=== PATIENT | female | born 1950 | race Caucasian/White ===

== ENCOUNTER → 2016-07-31 | Outpatient (CLI) | payer BC ==
[~2016-07-31] MED LIST: ATEN-173 PO; LEVO75TA PO; MULT-506 PO; PRAV20TA PO
[2016-07-31 15:04] LABS: CALCIUM URINE 14.9 mg/dl
[2016-07-31 15:09] LABS: CREATININE 0.61 mg/dl (0.60-1.20)
== END | disposition home or self-care (01) ==
LOC: C.LAB1850 13:25
PROVIDERS: ATTEND Internal Medicine Rheumatology
DX: M81.0 Age-related osteoporosis without current pathological fracture (principal); E55.9 Vitamin D deficiency, unspecified; E83.52 Hypercalcemia; E61.8 Deficiency of other specified nutrient elements

== ENCOUNTER → 2016-08-02 | Outpatient (CLI) | payer BC ==
[2016-08-02 17:57] LABS: POTASSIUM 3.8 mmol/L (3.5-5.1)
== END | disposition home or self-care (01) ==
LOC: C.LAB1850 16:48
PROVIDERS: ATTEND Internal Medicine Rheumatology
DX: I10 Essential (primary) hypertension (principal); E61.8 Deficiency of other specified nutrient elements; E83.52 Hypercalcemia

== ENCOUNTER → 2017-01-24 | Outpatient (CLI) | payer BC ==
[2017-01-24 17:34] LABS: ALT/SGPT 27 U/L (12-78); AST/SGOT 17 U/L (15-37); BLOOD UREA NITROGEN 12 mg/dl (7-18); BUN/CREATININE RATIO 21.9 (10-20); CALCIUM 8.9 mg/dl (8.5-10.1); CARBON DIOXIDE 27 mmol/L (21-32); CHLORIDE 102 mmol/L (98-107); CREATININE 0.54 mg/dl (0.60-1.20); GLUCOSE 88 mg/dl (70-99); POTASSIUM 3.7 mmol/L (3.5-5.1); SODIUM 137 mmol/L (136-145)
[2017-01-24 17:45] LABS: ALB/GLOB RATIO 1.1 (0.9-2); ALKALINE PHOSPHATASE 40 U/L (45-117); CHOLESTEROL 152 mg/dl (0-200); CHOLESTEROL/HDL RATIO 2.3; HDL CHOLESTEROL 66 mg/dl; LDL CHOLESTEROL CALCULATED 70 mg/dl; TRIGLYCERIDES 81 mg/dl (0-150); VERY LOW DENSITY LIPOPROT CALC 16 mg/dl
== END | disposition home or self-care (01) ==
LOC: C.LABBFT 12:00
PROVIDERS: ATTEND Physician Assistant Medical
DX: I10 Essential (primary) hypertension (principal); E03.9 Hypothyroidism, unspecified; E78.5 Hyperlipidemia, unspecified

== ENCOUNTER → 2017-01-25 | Outpatient (CLI) | payer BC ==
--- NOTE | 2017-01-28 15:12 | MAMMOGRAPHY REPORT ---
BILATERAL DIGITAL SCREENING MAMMOGRAM WITH CAD: 01/25/2017 CLINICAL HISTORY: Routine screening. Patient has no complaints. TECHNIQUE: Current study was also evaluated with a Computer Aided Detection (CAD) system. Bilateral CC and MLO views were obtained. COMPARISON: Comparison is made to exams dated: 01/24/2016 mammogram, 01/14/2015 mammogram, 01/13/2014 [facility] mogram, 01/08/2013 mammogram, 01/08/2012 mammogram, and 02/03/2016 mammogram - [facility]. BREAST COMPOSITION: The tissue of both breasts is extremely dense, which lowers the sensitivity of m ammography. FINDINGS: No suspicious masses, calcifications, or areas of architectural distortion are noted in ei ther breast. There has been no significant interval change compared to prior exams. IMPRESSION: ACR BI-RADS CATEGORY 1: NEGATIVE There is no mammographic evidence of malignancy. A 1 year screening mammogram is recommended. The pa tient will receive written notification of the results. Approximately 10% of breast cancers are not detected with mammography. A negative mammographic report should not delay biopsy if a clinically suggestive mass is present. Cele Delgado M.D. /:01/25/2017 16:33:28 Skidder Operator: Megan CARMONA(Arin)(M), [facility] letter sent: Normal 1/2 BI-RADS Code: ACR BI-RADS Category 1: Negative
== END | disposition home or self-care (01) ==
LOC: C.MAMM 16:03
PROVIDERS: ATTEND Physician Assistant Medical
DX: Z12.31 Encounter for screening mammogram for malignant neoplasm of breast (principal)

== ENCOUNTER → 2017-02-21 | Outpatient (CLI) | payer BC ==
[2017-02-21 18:10] LABS: CALCIUM URINE 13.9 mg/dl
== END | disposition home or self-care (01) ==
LOC: C.LAB1850 17:20
PROVIDERS: ATTEND Internal Medicine Rheumatology
DX: M81.0 Age-related osteoporosis without current pathological fracture (principal); E83.52 Hypercalcemia; E55.9 Vitamin D deficiency, unspecified

== ENCOUNTER → 2017-08-05 | Outpatient (CLI) | payer BC | END | disposition home or self-care (01) | LOC: C.LAB 19:03 | PROVIDERS: ATTEND Internal Medicine | DX: R31.0 Gross hematuria (principal); R35.0 Frequency of micturition ==

== ENCOUNTER 2017-09-03 17:41 | Inpatient (IN) | payer BC, OTHER ==
[~2017-09-03] VITALS: Ht 160 cm; Wt 36.6 kg
[2017-09-03] MEDS ORDERED: SODIUM CHLORIDE 0.9% 1000ML 1,000 ML IV STA (18:02)
[2017-09-03] MEDS ORDERED: CEFTRIAXONE SOD INJ 1 GM ADDVIAL IV STA (18:02)
--- NOTE | 2017-09-03 18:49 | DIAGNOSTIC IMAGING REPORT ---
SINGLE VIEW CHEST CLINICAL HISTORY: Generalized weakness. FINDINGS: An AP, portable, upright chest radiograph is compared to study dated 07/08/2015 and correlated with chest CT dated 12/17/2013. The examination is degraded by portable technique and patient rotation. The heart is top normal for projection and there is atherosclerotic calcification of the thoracic aorta. There is chronic elevation of right hemidiaphragm and mild bibasilar atelectasis. There is no airspace consolidation typical for pneumonia or large pleural effusion. Apical scarring is observed. No pneumothorax is seen. The skeletal structures are osteopenic. The bony thorax is grossly intact. IMPRESSION: No acute cardiopulmonary abnormality. Electronically signed by: Shlomo Garcia M.D. 09/03/2017 6:48 PM Dictated Date/Time: 09/03/2017 6:46 PM
--- NOTE | 2017-09-03 19:38 | EMERGENCY ROOM VISIT NOTE ---
History Report prepared by Filemon: Jose R Melvin Under the Supervision of: Dr. Bonifacio Eason D.O. First contact with patient: 17:52 Chief Complaint: ABNORMAL LABS Stated Complaint: ABNORMAL LABS History of Present Illness The patient is a 67 year old female who presents to the Emergency Room with complaints of abnormal laboratory studies occurring today. The patient was found to have a sodium of 120, and a white blood cell count of 21.6. She was also found to have a UTI. She had blood-work with her PCP's office due to "not feeling right". The patient was called with her results just prior to arrival and was referred to the ED. She currently complains of fatigue. She notes that she has fallen twice today as well. The patient is on Hydrochlorothiazide and feels that it may be responsible for some of her symptoms. She states that she currently feels dehydrated. She has a history of hyponatremia. The patient notes that she was on antibiotics last month for a bladder infection. She notes that she has had very little to eat over the past week due to lack of appetite. Source of History: patient Onset: Today Symptom Intensity: Sodium of 120. White blood count of 21.6. Quality: other (Abnormal laboratory studies) Timing: constant Associated Symptoms: + fatigue Review of Systems See HPI for pertinent positives & negatives. A total of 10 systems reviewed and were otherwise negative. Past Medical & Surgical Medical Problems: (1) Hyperlipidemia (2) Hypertension Family History Patient reports no known family medical history. Social History Smoking Status: Never Smoker Marital Status: single Housing Status: lives alone Occupation Status: employed Current/Historical Medications Scheduled Atenolol (Tenormin), 12.5 MG PO QAM Levothyroxine Sodium (Synthroid), 75 MCG PO DAILY Multivitamin (Multivitamin), 1 TAB PO DAILY Pravastatin (Pravachol ), 20 MG PO HS Allergies Coded Allergies: Sulfamethoxazole w/Trimethoprim (Verified Allergy, Unknown, RASH, 09/03/17) Physical Exam Vital Signs Date Time Temp Pulse Resp B/P (MAP) Pulse Ox O2 Delivery O2 Flow Rate FiO2 09/03/17 17:48 37.8 90 18 156/72 97 Room Air Physical Exam CONSTITUTIONAL/VITAL SIGNS: Reviewed / noted above. GENERAL: Non-toxic in appearance. INTEGUMENTARY: Warm, dry, and [place]. HEAD: Normocephalic. EYES: without scleral icterus or trauma. ENT/OROPHARYNX: clear and moist. LYMPHADENOPATHY/NECK: Is supple without lymphadenopathy or meningismus. RESPIRATORY: Lungs clear and equal. CARDIOVASCULAR: Regular rate and rhythm. GI/ABDOMEN: Soft and nontender. No organomegaly or pulsatile mass. No rebound or guarding. Normal bowel sounds. EXTREMITIES: Warm and well perfused. BACK: No CVA tenderness. NEUROLOGICAL: Intact without focal deficits. PSYCHIATRIC: normal affect. MUSCULOSKELETAL: Normally developed with good muscle tone. Medical Decision & Procedures ER Provider Diagnostic Interpretation: Radiology results as stated below per my review and radiologist interpretation: SINGLE VIEW CHEST FINDINGS: An AP, portable, upright chest radiograph is compared to study dated 07/08/2015 and correlated with chest CT dated 12/17/2013. The examination is degraded by portable technique and patient rotation. The heart is top normal for projection and there is atherosclerotic calcification of the thoracic aorta. There is chronic elevation of right hemidiaphragm and mild bibasilar atelectasis. There is no airspace consolidation typical for pneumonia or large pleural effusion. Apical scarring is observed. No pneumothorax is seen. The skeletal structures are osteopenic. The bony thorax is grossly intact. IMPRESSION: No acute cardiopulmonary abnormality. Electronically signed by: Shlomo Garcia M.D. 09/03/2017 6:48 PM Medications Administered Medications (Trade) Dose Ordered Sig/Simone Route Start Time Stop Time Status Last Admin Dose Admin Ceftriaxone Sodium (Rocephin Inj) 1 gm NOW STAT IV 09/03/17 18:02 09/03/17 18:03 DC 09/03/17 18:56 1 GM Sodium Chloride 1,000 ml @ 250 mls/hr Q4H STAT IV 09/03/17 18:02 09/03/17 22:01 09/03/17 18:56 250 MLS/HR ED Course 1755: Previous medical records were reviewed. The patient was evaluated in room B8. A complete history and physical examination was performed. 180: Ordered Sodium Chloride 1000 ml @ 250 mls/hr IV, Rocephin Inj 1 gm IV. 2: On reevaluation, the patient is resting comfortably. I discussed the results and findings with her. She verbalized agreement of the treatment plan. I spoke with Dr. Giang of the [facility] Hospitalist Service. The patient will be evaluated for further management and care. Medical Decision Differential diagnosis: Etiologies such as metabolic, infection, hypo/hyperglycemia, electrolyte abnormalities, cardiac sources, intracerebral event, toxicologic, neurologic, as well as others were entertained. This is a 67-year-old female who presents to the ED with a chief complaint of abnormal labs, unsteady gait and falling. The patient reports that she has had a decreased appetite over the past week or more. She states that she feels that her equilibrium is off. She had outpatient blood work done earlier today that revealed significant hyponatremia with a sodium of 120. Her white blood cell count was 21.6. Chloride was 80. TSH was normal. Urine was suggestive of urinary tract infection. Urine culture is pending. Chest x-ray today reveals no acute disease. The patient was given some IV fluids as she feels that she might be dehydrated. She was given normal saline IV at 250 cc/h. She was given IV Rocephin for her urinary tract infection. I spoke with the hospitalist, who will see the patient for further inpatient evaluation and care. Medication Reconcilliation Current Medication List: was personally reviewed by me Blood Pressure Screening Patient's blood pressure: Elevated blood pressure Blood pressure disposition: Referred to PCP Consults Time Called: 1914 Consulting Physician: Dr. Rahat Hood [facility] Hospitalist Returned Call: 1921 Discussed the patient's case. The patient will be evaluated for further treatment and disposition. Impression Primary Impression: Hyponatremia Additional Impressions: UTI (urinary tract infection) Unsteady gait Scribe Attestation The scribe's documentation has been prepared under my direction and personally reviewed by me in its entirety. I confirm that the note above accurately reflects all work, treatment, procedures, and medical decision making performed by me. Departure Information Dispostion Being Evaluated By Hospitalist Referrals Sita Kasper P.A. (PCP) Patient Instructions My [facility] Problem Qualifiers
--- NOTE | 2017-09-03 21:04 | History and Physical ---
History & Physical Date & Time of Service: Sep 03, 2017 at 21:04 Chief Complaint: Abnormal Labs Primary Care Physician: Sita Kasper P.A. History of Present Illness Source: patient, hospital records The patient is a 67-year-old female who presents to the emergency department with report of abnormal laboratory studies that were drawn at her PCPs office today due to her complaint of "not feeling right". She was found to have a UTI , and a sodium of 120. Her primary complaint in the ED at this time is fatigue , and she reports that she has fallen twice today as well. She feels that her HCTZ is responsible for her symptoms, and that she feels dehydrated. She has a history of hyponatremia and was admitted for such in 2014. She was on antibiotics for a bladder infection last month. She reports that her overall intake for foods and solids has been decreased over the past week. She does report having gross hematuria when she had an infection last month, but has not noticed that this time. Past Medical/Surgical History Medical Problems: (1) Hyperlipidemia Status: Chronic (2) Hypertension Status: Chronic Family History Patient reports no known family medical history. Social History Smoking Status: Never Smoker Smokeless Tobacco Use: No Alcohol Use: none Marital Status: single Occupational Status: employed Immunizations History of Influenza Vaccine: Unknown History of Tetanus Vaccine?: Unknown History of Pneumococcal: Unknown History of Hepatitis B Vaccine: Unknown Multi-Drug Resistant Organisms History of MDRO: No Allergies Coded Allergies: Sulfamethoxazole w/Trimethoprim (Verified Allergy, Unknown, RASH, 09/03/17) Home Medications Scheduled Atenolol (Tenormin), 12.5 MG PO QAM Levothyroxine Sodium (Synthroid), 75 MCG PO DAILY Multivitamin (Multivitamin), 1 TAB PO DAILY Pravastatin (Pravachol ), 20 MG PO HS Review of Systems The patient denies chest pain, palpitations, shortness of breath, dyspnea on exertion, cough, lower extremity swelling, sore throat, fevers, chills, sweats, weight change, nausea, vomiting, diarrhea , constipation, abdominal pain, pelvic pain, blood in urine or stool, dysuria, headache, memory loss, loss of consciousness , rash, abnormal bruising or bleeding, imbalance, focal weakness, numbness or tingling in arms or legs, generalized arthralgias or myalgias, back or neck pain, or night sweats. The review of systems is otherwise negative other than for that already noted above, and at least 10 systems have been reviewed. Physical Exam Vital Signs Date Time Temp Pulse Resp B/P (MAP) Pulse Ox O2 Delivery O2 Flow Rate FiO2 09/03/17 19:42 78 15 104/61 97 09/03/17 17:48 37.8 90 18 156/72 97 Room Air The patient is awake, alert and oriented 3, well developed and well nourished, normocephalic and atraumatic, sitting upright on the edge of her bed eating supper, and in no acute distress. HEENT--PERRL, EOMI, mucous membranes and oropharynx moist. Neck--supple. No JVD. No bruits. Thyroid normal, trachea midline, no adenopathy. Heart--normal S1 and S2. No murmurs, rubs or gallops. Lungs--clear bilaterally, no respiratory distress, no accessory muscle use. Abdomen--normal bowel sounds and soft. Nontender. Nondistended, no hernias or masses, no organomegaly. Extremities--no cyanosis or clubbing. No edema. There are good distal pulses b/ l. Dermatologic--normal skin turgor, normal color, no abnormal lymph nodes, no rash. Neurologic--cranial nerves II through XII grossly intact. Rheumatologic--normal range of motion. Psychiatric--normal affect. Diagnostics Laboratory Results Results Past 24 Hours Test 09/03/17 19:49 Range/Units Diagnostic Radiology Patient Name: CRISTIAN LANZA Unit Number: [id number] Dictated: 09/03/171845 Transcribed: 09/03/171845 EV Printed Date/Time: [~ rep prt dt]/[~ rep prt tm] [~ rep ct labl] - [~ rep ct ivnm] [facility] [place] [address] Dictated: 09/03/171845 Transcribed: 09/03/171845 EV Printed Date/Time: [~ rep prt dt]/[~ rep prt tm] [~ rep ct labl] - [~ rep ct ivnm] [~ rep ct add3]] SINGLE VIEW CHEST CLINICAL HISTORY: Generalized weakness. FINDINGS: An AP, portable, upright chest radiograph is compared to study dated 07/08/2015 and correlated with chest CT dated 12/17/2013. The examination is degraded by portable technique and patient rotation. The heart is top normal for projection and there is atherosclerotic calcification of the thoracic aorta. There is chronic elevation of right hemidiaphragm and mild bibasilar atelectasis. There is no airspace consolidation typical for pneumonia or large pleural effusion. Apical scarring is observed. No pneumothorax is seen. The skeletal structures are osteopenic. The bony thorax is grossly intact. IMPRESSION: No acute cardiopulmonary abnormality. Electronically signed by: Shlomo Garcia M.D. 09/03/2017 6:48 PM Dictated Date/Time: 09/03/2017 6:46 PM The status of this report is Signed. Draft = Not yet reviewed or approved by Radiologist. Signed = Reviewed and approved by Radiologist. <AttendingPhy></AttendingPhy> <FamilyPhy>Sita Kasper,P.A.</FamilyPhy> < PrimaryPhy>Sita Kasper,P.A.</PrimaryPhy> <UnitNumber>[id number]</UnitNumber > <VisitNumber>[id number]</VisitNumber> <PatientName>CRISTIAN LANZA Veronica</ PatientName> <DateOfBirth>1950</DateOfBirth> <Location>[facility]</Location> < ServiceDate>09/03/17</ServiceDate> <MNE>ESINDI</MNE> <OrderingPhy>Bonifacio Eason D.O.</OrderingPhy> <OrderingPhyMNE>f rep ord dr ellison</OrderingPhyMNE> < DictatingPhyMNE>f rep dict dr ellison</DictatingPhyMNE> <CCListMNE>f rep ct scot</ CCListMNE> <AdmittingPhyMNE>f pt admit dr ellison</AdmittingPhyMNE> <AttendingPhyMNE >f pt attend dr ellison</AttendingPhyMNE> <ConsultingPhyMNE>f pt consult dr ellison</ConsultingPhyMNE> <FamilyPhyMNE>f pt fam dr ellison</FamilyPhyMNE> <OtherPhyMNE>f pt other dr ellison</OtherPhyMNE> < PrimaryPhyMNE>f pt prim care dr ellison</PrimaryPhyMNE> <ReferringPhyMNE>f pt referring dr ellison</ReferringPhyMNE> Impression Assessment and Plan Hyponatremia-- Likely secondary to HCTZ Add a serum and urine osmolality. Hold HCTZ Further management will depend upon pending laboratories. She has no overt signs or symptoms at this time. UTI-- Continue ceftriaxone 1 g IV daily begun in the emergency department Hypertension-- Continue atenolol 12.5 mg p.o. every morning with hold parameters Hypothyroidism-- Continue levothyroxine sodium 75 mcg p.o. daily Hyperlipidemia-- Continue pravastatin 20 mg at bedtime Level of Care Med/Surg Advanced Directives Existing Advance Directive: No Existing Living Will: No Existing Power of Safe And Vault Mechanic: No Resuscitation Status FULL RESUSCITATION VTE Prophylaxis VTE Risk Assessment Done? Y/N: Yes Risk Level: Moderate Given or contraindicated: SCD's Social Service Consult None Apply
[2017-09-03 22:04] VITALS: O2SAT 100
[2017-09-03] MEDS ORDERED: MAGNESIUM HYDROXIDE SUSP 30 ML UDC PO PRN (22:15)
[2017-09-03] MEDS ORDERED: ALUMINUM/MAGNESIUM/SIMETH (MAALOX MAX) 30 ML UDC PO PRN (22:15)
[2017-09-03] MEDS ORDERED: POLYETHYLENE (MIRALAX) 17 GM PACK PO PRN (22:15)
[2017-09-03] MEDS ORDERED: ONDANSETRON 8MG OD TAB PO PRN (22:15)
[2017-09-03] MEDS ORDERED: ACETAMINOPHEN 325 MG TAB PO PRN (22:15)
[2017-09-03 22:48] VITALS: BP 147/74; PULSE 80; TEMP 37; O2SAT 92
[2017-09-04 00:30] VITALS: BP 147/74; PULSE 80; TEMP 37; Ht 160 cm; Wt 36.6 kg
[2017-09-04] MEDS: LEVOTHYROXINE 75 MCG TAB PO SCH (05:43)
[2017-09-04] MEDS: PRAVASTATIN SOD 20 MG TAB PO SCH ×2 (05:43→20:59)
[2017-09-04 07:11] VITALS: BP 117/57; PULSE 75; TEMP 36.7; O2SAT 98
[2017-09-04 08:03] LABS: BASO % 0.2 %; BASO ABS # 0.03 K/uL (0-0.2); EOS % 0.4 %; EOS ABS # 0.07 K/uL (0-0.5); HEMATOCRIT 34.4 % (37-47); HEMOGLOBIN 12.5 g/dL (12.0-16.0); IG# 0.57 K/uL (0.00-0.02); LYMPH % 7.1 %; LYMPH ABS # 1.26 K/uL (1.2-3.4); MEAN CORPUSCULAR HEMOGLOBIN 31.3 pg (25-34); MEAN CORPUSCULAR HGB CONC 36.3 g/dl (32-36); MONO % 5.3 %; MONO ABS # 0.94 K/uL (0.11-0.59); NEUT % 83.8 %; NEUT ABS # 14.83 K/uL (1.4-6.5); PLATELET COUNT 328 K/uL (130-400); RED CELL DISTRIBUTION WIDTH CV 13.7 % (11.5-14.5); RED CELL DISTRIBUTION WIDTH SD 43.2 fL (36.4-46.3)
[2017-09-04 08:45] LABS: CALCIUM 8.6 mg/dl (8.5-10.1); CREATININE 0.6 mg/dl (0.60-1.20); POTASSIUM 3.7 mmol/L (3.5-5.1)
[2017-09-04] MEDS: MULTIVITAMIN TAB PO SCH (08:47)
[2017-09-04 13:25] LABS: CALCIUM 8.5 mg/dl (8.5-10.1); CREATININE 0.52 mg/dl (0.60-1.20); POTASSIUM 3.8 mmol/L (3.5-5.1)
[2017-09-04 15:44] VITALS: BP 126/73; PULSE 90; TEMP 36.9; O2SAT 94
[2017-09-04] MEDS ORDERED: SODIUM CHLORIDE 0.9% 1000ML 1,000 ML IV SCH (16:15)
[2017-09-04] MEDS ORDERED: CEFTRIAXONE SOD INJ 1 GM in DEXTROSE 5% ADD-VANTAGE 50ML 50 ML IV SCH (18:00)
--- NOTE | 2017-09-04 21:11 | Progress Note ---
Subjective Date of Service: Sep 04, 2017. Subjective Pt evaluation today including: conversation w/ patient, physical exam, chart review, lab review, review of inpatient medication list Pain: denies PO Intake: improved Voiding: no voiding problems overall feels much better today denies lethargy, fatigue, headache appetite improved Problem List Medical Problems: (1) Dehydration Status: Acute (2) Diarrhea Status: Acute (3) Hyponatremia Status: Acute (4) Hyponatremia Status: Acute (5) Hyponatremia Status: Acute (6) Leukopenia Status: Acute (7) Lightheadedness Status: Acute (8) Orthostatic hypotension Status: Acute (9) Pneumonia involving right lung Status: Acute (10) Unsteady gait Status: Acute (11) UTI (urinary tract infection) Status: Acute Review of Systems Constitutional: + weight loss, No fever, No chills Respiratory: No cough, No shortness of breath Cardiac: No chest pain Abdomen: No pain Objective Vital Signs Date Time Temp Pulse Resp B/P (MAP) Pulse Ox O2 Delivery O2 Flow Rate FiO2 09/04/17 16:00 Room Air 09/04/17 15:44 36.9 90 18 126/73 (90) 94 Room Air 09/04/17 09:48 Room Air 09/04/17 07:11 36.7 75 18 117/57 (77) 98 Room Air 09/04/17 00:30 37.0 80 18 147/74 Room Air 09/03/17 22:48 37.0 80 18 147/74 (98) 92 Room Air 09/03/17 22:04 84 18 136/64 100 09/03/17 21:35 84 18 136/64 100 Room Air Physical Exam General Appearance: no apparent distress, + thin ENT: pharynx normal Neck: no JVD Respiratory/Chest: lungs clear, no respiratory distress, no accessory muscle use Cardiovascular: regular rate, rhythm, no gallop, no murmur Abdomen: normal bowel sounds, non tender, soft, no organomegaly Extremities: no pedal edema Neurologic/Psychiatric: alert, oriented x 3 Laboratory Results Last 24 Hours Test 09/03/17 21:30 09/03/17 22:22 09/04/17 00:00 09/04/17 07:42 Osmolality 269 mOsm/kg Urine Osmolality 169 mOms/kg 298 mOms/kg Urine Random Sodium 28 mEq/L White Blood Count 17.70 K/uL Red Blood Count 4.00 M/uL Hemoglobin 12.5 g/dL Hematocrit 34.4 % Mean Corpuscular Volume 86.0 fL Mean Corpuscular Hemoglobin 31.3 pg Mean Corpuscular Hemoglobin Concent 36.3 g/dl Platelet Count 328 K/uL Mean Platelet Volume 8.0 fL Neutrophils (%) (Auto) 83.8 % Lymphocytes (%) (Auto) 7.1 % Monocytes (%) (Auto) 5.3 % Eosinophils (%) (Auto) 0.4 % Basophils (%) (Auto) 0.2 % Neutrophils # (Auto) 14.83 K/uL Lymphocytes # (Auto) 1.26 K/uL Monocytes # (Auto) 0.94 K/uL Eosinophils # (Auto) 0.07 K/uL Basophils # (Auto) 0.03 K/uL RDW Standard Deviation 43.2 fL RDW Coefficient of Variation 13.7 % Immature Granulocyte % (Auto) 3.2 % Immature Granulocyte # (Auto) 0.57 K/uL Sodium Level 129 mmol/L Potassium Level 3.7 mmol/L Chloride Level 93 mmol/L Carbon Dioxide Level 29 mmol/L Anion Gap 7.0 mmol/L Blood Urea Nitrogen 9 mg/dl Creatinine 0.60 mg/dl Est Creatinine Clear Calc Drug Dose 52.6 ml/min Estimated GFR () 109.3 Estimated GFR (Non- 94.3 BUN/Creatinine Ratio 15.3 Random Glucose 103 mg/dl Calcium Level 8.6 mg/dl Magnesium Level 1.9 mg/dl Test 09/04/17 12:47 Sodium Level 130 mmol/L Potassium Level 3.8 mmol/L Chloride Level 95 mmol/L Carbon Dioxide Level 26 mmol/L Anion Gap 9.0 mmol/L Blood Urea Nitrogen 11 mg/dl Creatinine 0.52 mg/dl Est Creatinine Clear Calc Drug Dose 60.7 ml/min Estimated GFR () 114.6 Estimated GFR (Non- 98.9 BUN/Creatinine Ratio 20.4 Random Glucose 114 mg/dl Osmolality 266 mOsm/kg Calcium Level 8.5 mg/dl Assessment and Plan 67yo female - 1. hyponatremia - suspect 2nd to HCTZ use - improving. Has corrected 9 points in a little over 24 hours. Rechecked serum osm, urine osm, urine Na. Not c/w SIADH. Will hydrate with NS 50cc/hr x 1 additional liter then stop. BMP in am. 2. e. coli UTI - cont rocephin, await final culture results. 3. hypothyroidism - TSH is compensated; cont synthroid. 4. protein calorie malnutrition, at least of moderate degree - recommend MVI, boost, etc. 5. HTN - cont BB 6. hyperlipidemia - cont statin. 7. DVT proph - if she stays beyond tomorrow then add heparin 5000 BID anticipate d/c home tomorrow if Na is stable and urine cx results have returned Continued [facility] stay due to: multiple IV medications needed Discharge planning: home
[2017-09-05 00:17] VITALS: BP 124/71; PULSE 73; TEMP 36.6; O2SAT 99
[2017-09-05] MEDS: LEVOTHYROXINE 75 MCG TAB PO SCH (06:25)
[2017-09-05 07:26] VITALS: BP 144/64; PULSE 75; TEMP 36.9; O2SAT 97
[2017-09-05 08:19] LABS: HEMATOCRIT 32.2 % (37-47); HEMOGLOBIN 11.5 g/dL (12.0-16.0); MEAN CELL VOLUME 87.3 fL (80-100); MEAN CORPUSCULAR HEMOGLOBIN 31.2 pg (25-34); MEAN CORPUSCULAR HGB CONC 35.7 g/dl (32-36); MEAN PLATELET VOLUME 7.8 fL (7.4-10.4); PLATELET COUNT 362 K/uL (130-400); RED CELL DISTRIBUTION WIDTH SD 44.4 fL (36.4-46.3); WHITE BLOOD COUNT 13.62 K/uL (4.8-10.8)
[2017-09-05] MEDS: MULTIVITAMIN TAB PO SCH (08:27)
[2017-09-05 08:42] LABS: BASO % 0.3 %; BASO ABS # 0.04 K/uL (0-0.2); EOS % 0.9 %; EOS ABS # 0.12 K/uL (0-0.5); IG# 0.76 K/uL (0.00-0.02); LYMPH % 12.7 %; LYMPH ABS # 1.73 K/uL (1.2-3.4); MONO % 6.8 %; MONO ABS # 0.93 K/uL (0.11-0.59); NEUT % 73.7 %; NEUT ABS # 10.04 K/uL (1.4-6.5)
[2017-09-05 08:57] LABS: CALCIUM 8.4 mg/dl (8.5-10.1); CREATININE 0.45 mg/dl (0.60-1.20); POTASSIUM 4.1 mmol/L (3.5-5.1)
[2017-09-05] MEDS ORDERED: CEPHALEXIN MONOHYDRATE 500 MG CAP PO SCH (09:00)
[2017-09-05] MEDS ORDERED: LACTCHW3 PO (10:54)
[2017-09-05] MEDS ORDERED: KFL500 PO (10:54)
--- NOTE | 2017-09-05 11:01 | Discharge Instructions ---
Discharge Instructions Date of Service Sep 05, 2017. Admission Reason for Admission: Hyponatremia (low sodium); Urinary Tract Infection Discharge Discharge Diagnosis / Problem: Low sodium - almost normal/improved. UTI - improved. Discharge Goals Goal(s): Learn about illness, Diagnostic testing, Therapeutic intervention Activity Recommendations Activity Limitations: resume your previous activity (as tolerated) . Instructions / Follow-Up Instructions / Follow-Up From Dr. López - 1. Hyponatremia (low sodium in your blood) - this was likely a combination of poor appetite/poor oral intake in the days leading up to your hospital stay as well as the Hydrochlorothiazide (HCTZ water pill). Please do the following - * please STOP your hydrochlorothiazide * ok to use a little extra salt in your diet in the next 2-3 days as the sodium level normalizes * your sodium level was 120 initially and now improved to 132 * please have your family doctor recheck your sodium level at the time of your hospital follow-up appointment 2. Urinary tract infection - * you received 2 days of IV antibiotic in the hospital * take cephalexin (keflex) 500mg twice a day for 5 more days; start this TONIGHT ; prescription sent to [facility] [place] * please have your family doctor repeat a urine culture after you are off antibiotics to ensure the infection is gone 3. Loose stools - * this is due to the antibiotics * take probiotics (lactinex) three times a day for 7 days; prescription sent to [facility] for you; these may help with the loose stool * if you have worsening diarrhea, especially 3-4 times a day or more, please let your family doctor know right away 4. Weight loss - Please discuss this with your family doctor at time of follow- up. 5. Follow-up - See your family doctor early this coming week. 6. Return to [facility] if - * you develop fever over 100.5 degrees * worsening diarrhea occurs * severe weakness, fatigue, dizziness, lightheadedness occurs * any other concerns Current Hospital Diet Patient's current hospital diet: Regular Diet Discharge Diet Recommended Diet: Regular Diet Pending Studies Studies pending at discharge: no Laboratory Results Lipid Panel Test 09/03/17 09:37 Range/Units Triglycerides Level 168 H 0-150 mg/dl Cholesterol Level 136 0-200 mg/dl HDL Cholesterol 12 mg/dl Cholesterol/HDL Ratio 11.3 LDL Cholesterol, Calculated 90 mg/dl Medical Emergencies . Who to Call and When: Medical Emergencies: If at any time you feel your situation is an emergency, please call 911 immediately. . Non-Emergent Contact Non-Emergency issues call your: Primary Care Provider Call Non-Emergent contact if: temperature is above 100.5, you have any medication questions . . "Provider Documentation" section prepared by Simeon López. . VTE Core Measure Inpt VTE Proph given/why not?: SCD's
[2017-09-05 11:05] VITALS: BP 144/64; PULSE 75; TEMP 36.9; O2SAT 97
== END 2017-09-05 13:50 | disposition home or self-care (01) | DRG 690 ==
LOC: EDBD 17:41 → C.EDB 17:43 → C.MS2W 21:04 → ENRESERV 21:20
PROVIDERS: ADMIT Hospitalist; ATTEND Internal Medicine
DX: N39.0 Urinary tract infection, site not specified (principal); E44.0 Moderate protein-calorie malnutrition; E87.1 Hypo-osmolality and hyponatremia; Z68.1 Body mass index [BMI] 19.9 or less, adult; B96.20 Unspecified Escherichia coli [E. coli] as the cause of diseases classified elsewhere; E78.5 Hyperlipidemia, unspecified; I10 Essential (primary) hypertension; E03.9 Hypothyroidism, unspecified; Z79.899 Other long term (current) drug therapy; Z88.2 Allergy status to sulfonamides; T50.2X5A Adverse effect of carbonic-anhydrase inhibitors, benzothiadiazides and other diuretics, initial encounter

== ENCOUNTER → 2017-09-10 | Outpatient (CLI) | payer BC ==
[~2017-09-10] MED LIST changes: +KFL500 PO; +LACTCHW3 PO
[2017-09-10 17:22] LABS: ALBUMIN 3.2 gm/dl (3.4-5.0); ALT/SGPT 35 U/L (12-78); AST/SGOT 27 U/L (15-37); BLOOD UREA NITROGEN 8 mg/dl (7-18); CALCIUM 9.8 mg/dl (8.5-10.1); CARBON DIOXIDE 28 mmol/L (21-32); CREATININE 0.52 mg/dl (0.60-1.20); GLUCOSE 88 mg/dl (70-99); POTASSIUM 3.9 mmol/L (3.5-5.1); SODIUM 133 mmol/L (136-145)
[2017-09-10 17:24] LABS: ALKALINE PHOSPHATASE 67 U/L (45-117); TOTAL PROTEIN 7.3 gm/dl (6.4-8.2)
== END | disposition home or self-care (01) ==
LOC: C.LABBC 14:19
PROVIDERS: ATTEND Physician Assistant Medical
DX: E78.5 Hyperlipidemia, unspecified (principal); I10 Essential (primary) hypertension; E87.1 Hypo-osmolality and hyponatremia

== ENCOUNTER → 2017-11-14 | Outpatient (CLI) | payer BC ==
[2017-11-14 16:47] LABS: BLOOD UREA NITROGEN 17 mg/dl (7-18); CALCIUM 9.3 mg/dl (8.5-10.1); CARBON DIOXIDE 28 mmol/L (21-32); CREATININE 0.64 mg/dl (0.60-1.20); GLUCOSE 87 mg/dl (70-99); PHOSPHORUS 3.6 mg/dl (2.5-4.9); POTASSIUM 3.8 mmol/L (3.5-5.1); SODIUM 134 mmol/L (136-145)
[2017-11-14 16:49] LABS: POTASSIUM RANDOM URINE 35.8 mEq/L
== END | disposition home or self-care (01) ==
LOC: C.LABBFT 11:39
PROVIDERS: ATTEND Internal Medicine Nephrology
DX: E87.1 Hypo-osmolality and hyponatremia (principal)

== ENCOUNTER 2019-01-27 10:01 | Inpatient (IN) ==
[2019-01-27] MEDS ORDERED: SODIUM CHLORIDE 0.9% 1000ML 1,000 ML IV STA (10:35)
[2019-01-27] MEDS ORDERED: DEXAMETHASONE SOD PHOSPHATE 10 MG in SYRINGE 0 ML IV STA (10:35)
--- NOTE | 2019-01-27 10:47 | XRay Report ---
XR chest 1V portable CLINICAL HISTORY: Atypical chest pain COMPARISON STUDY: 07/29/2018 FINDINGS: The heart is at the upper limits of normal in size. There is no failure. There is no focal pulmonary consolidation. There are no pleural effusions.[ IMPRESSION: No active disease in the chest. Electronically signed by: Alec Dee M.D. 01/27/2019 10:45 AM
[2019-01-27 10:50] LABS: Basophils # (auto) 0.01 K/uL (0-0.2); Basophils % (auto) 0.2 %; Eosinophils # (auto) 0.04 K/uL (0-0.5); Eosinophils % (auto) 0.6 %; Hematocrit (blood only) 34.6 % (37-47); Hemoglobin 11.9 g/dL (12.0-16.0); Immature Granulocytes # (auto) 0.01 K/uL (0.00-0.02); Immature Granulocytes % (auto) 0.2 %; Lymphocytes # (auto) 0.48 K/uL (1.2-3.4); Lymphocytes % (auto) 7.8 %; Mean Corpuscular Hgb Conc 34.4 g/dL (32-36); Mean Corpuscular Volume 87.6 fL (80-100); Monocytes # (auto) 0.74 K/uL (0.11-0.59); Neutrophils # (auto) 4.89 K/uL (1.4-6.5); Neutrophils % (auto) 79.2 %; Platelet Count 143 K/uL (130-400); RDW Standard Deviation 48.3 fL (36.4-46.3); Red Blood Count 3.95 M/uL (4.2-5.4); White Blood Count 6.17 K/uL (4.8-10.8)
[2019-01-27 10:58] LABS: Prothrombin Time 10.4 Seconds (9.0-12.0)
[2019-01-27] MEDS ORDERED: DEXAMETHASONE **PF** INJ 10 MG/ML VIAL ONE (11:21)
[2019-01-27 11:23] LABS: Alanine Aminotransferase 16 U/L (12-78); Albumin Globulin Ratio 1.2 (0.9-2); Albumin Level 3.6 gm/dl (3.4-5.0); Aspartate Aminotransferase 12 U/L (15-37); Bilirubin,Total 0.4 mg/dl (0.2-1); Blood Urea Nitrogen 16 mg/dl (7-18); Calcium 8.5 mg/dl (8.5-10.1); Carbon Dioxide 27 mmol/L (21-32); Chloride 105 mmol/L (98-107); Est GFR (African American) 118.5; Est GFR (Non-African American) 102.2; Glucose 84 mg/dl (70-99); Phosphorus 3.6 mg/dl (2.5-4.9); Potassium 3.7 mmol/L (3.5-5.1); Sodium 136 mmol/L (136-145); Total Protein 6.6 gm/dl (6.4-8.2)
--- NOTE | 2019-01-27 11:24 | CT Scan Report ---
CT head/brain wo con CLINICAL HISTORY: aphasia, h/o GBM COMPARISON STUDY: 10/27/2018, 11/18/2018 TECHNIQUE: Axial CT of the brain is performed from the vertex to the skull base. IV contrast was not administered for this examination. A dose lowering technique was utilized adhering to the principles of ALARA. CT DOSE: FINDINGS: There are postsurgical changes of a left parietotemporal craniotomy and tumor resection. There is lef t temporal lobe encephalomalacia. There is dilatation of the left temporal horn, likely secondary to volume loss. There is no CT evidence of acute cortical infarction. There is no midline shift. There is no significant hydrocephalus. Inflammatory changes are present within the left sphenoid and ethmoid sinuses. IMPRESSION: Postsurgical changes of a left parietotemporal craniotomy and tumor resection. Postsurgic al encephalomalacia. No acute findings on this noncontrast CT study. If there is clinical concern ove r the presence of tumor recurrence or acute stroke, an MRI could be obtained in follow-up. Electronically signed by: Alec Dee M.D. 01/27/2019 11:23 AM
[2019-01-27 11:31] LABS: Appearance Urine Cloudy (Clear); Bilirubin Urine Negative (Negative); Blood Urine 3+ (Negative); Color Urine Orange; Glucose Urine UA Negative (Negative); Ketones Urine Negative (Negative); Leukocyte Esterase Urine 2+ (Negative); Nitrite Urine Negative (Negative); Specific Gravity Urine 1.015 (1.000-1.030); Urobilinogen Urine Negative (Negative); pH Urine 7.5 (4.5-7.5)
[2019-01-27 11:31] LABS: Alkaline Phosphatase 34 U/L (45-117); Troponin I < 0.015 ng/ml (0-0.045)
[2019-01-27 11:36] LABS: Protein Urine 1+ (Negative)
[2019-01-27 11:40] LABS: Bacteria Urine 2+ (Negative); RBC Urine >30 /hpf (0-4); WBC Urine >30 /hpf (0-5)
[2019-01-27 11:41] LABS: Epithelial Cell Urine 0-5 /lpf (0-5); Hyaline Casts Urine 0-5 /lpf (0-5)
[2019-01-27] MEDS ORDERED: SODIUM CHLORIDE 0.9% 1000ML 1,000 ML IV ONE (11:50)
[2019-01-27] MEDS ORDERED: LORazepam 1 MG TAB SL STA (12:52)
[2019-01-27] MEDS ORDERED: cefTRIAXone SODIUM 1,000 MG/50 ML BAG IV STA (14:50)
[2019-01-27] MEDS ORDERED: LORazepam 1 MG TAB ONE (15:25)
[2019-01-27] MEDS ORDERED: GADOBUTROL 65ML VIAL IV PRN (16:06)
--- NOTE | 2019-01-27 16:09 | Emergency Department Note ---
Entered by Stephanie Parekh acting as a scribe for History of Present Illness General Chief complaint: Neuro Symptoms/Deficit Stated complaint: CONGISTION,SLURRING OF SPEECH Time Seen by Provider: 01/27/19 10:20 Source: family History of Present Illness Provider complaint: difficulty speaking Onset (ago): hour(s) 3 Location: head Severity: similar to prior episodes (symptoms similar to when she had a brain tumor) Pain Consistency: + other (episode) Associated symptoms: + confusion and + other (anxiety, mildly constipated, hematochezia) The patient is a 69 year old female who presents to the ED with complaints of an episode of difficulty speaking starting 3 hours ago. Per daughter in law, the patient is usually very aware in regard to taking her medications at the same time every morning. The daughter in law states that this was not the case this morning because the patient was more confused than normal. The daughter in law notes that the patient became anxious after becoming mildly constipated this morning with some scant blood from hemorrhoid. Per daughter in law, the patient has had difficulty speaking ever since this occurrence. The daughter in law states that the patient has a history of a Glioblastoma tumor resection in October and the patients current symptoms are similar to this. The patient's Neuro-oncologist is Dr Gregory Washington at [facility]. Home Medications Home Medications Medication Instructions Recorded Confirmed Type levothyroxine 88 mcg PO QAM 10/27/18 01/27/19 History pravastatin 20 mg PO QAM 10/27/18 01/27/19 History atenolol 25 mg tablet 25 mg PO QAM 11/13/18 01/27/19 History bisacodyl 10 mg rectal suppository 10 mg WV DAILY PRN 11/13/18 01/27/19 History famotidine 20 mg tablet 20 mg PO QAM 11/13/18 01/27/19 History levetiracetam 250 mg tablet 250 mg PO BID 11/13/18 01/27/19 History magnesium hydroxide 400 mg/5 mL 30 ml PO DAILY PRN ml 11/13/18 01/27/19 History oral suspension polyethylene glycol 3350 17 17 gm PO DAILY PRN 11/13/18 01/27/19 History gram/dose oral powder Allergies Allergy/AdvReac Type Severity Reaction Status Date / Time Bactrim Allergy Unknown RASH Verified 09/03/17 19:13 sulfamethoxazole Allergy Unknown RASH Verified 01/27/19 12:41 trimethoprim Allergy Unknown RASH Verified 01/27/19 12:41 Fresh Kimble Allergy Intermediate Rash on Uncoded 01/27/19 12:41 face / hives Past Med/Surg History Medical History Hypertension (Chronic) Hyperlipidemia (Chronic) Glioblastoma (Acute) Diagnosed 10/28/18 - WHO Grade IV Hypothyroidism (Chronic) History of basal cell cancer (Resolved) 2009 - Removed from right lower eyelid area Surgical History History of mandibular surgery (Acute) 1981 History of craniotomy (Resolved) 10/28/18 @ [facility] Family History Grandfather (Paternal) , Passed in 50s of unknown CA (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 Mother , Passed age 69 of [place] No problems noted. Father , Passed age 84 of poor circulation No problems noted. Brother No problems noted. Brother , Passed as an No problems noted. Sister , Passed as an No problems noted. Other Has no children Social History Visual Impairment: Limited Hearing Ability: Normal Beliefs That Will Affect Care: None marital status: Single Current Living Situation: Personal Care Facility current occupational status: retired current occupation: Retired from [employer] Feels Safe at Home: Yes Smoking Status: Never smoker Hx Alcohol Use: No Hx Substance Use: No Childhood Exposure to Second-Hand Smoke: Yes during the past year weight has: remained stable Dental Care, Regularly: Yes Review of Systems See HPI for pertinent positives & negatives. and A total of 10 systems reviewed and were otherwise negative Physical Exam Vital Signs Vital Signs - 24 hr 01/27/19 10:10 01/27/19 12:05 01/27/19 12:58 Temperature 36.4 C L Temperature Source Oral Sepsis Recent Fever Within 48 Hours No Sepsis Action Taken by Nursing No Action Required Pulse Rate 57 L Pulse Rate [Apical] 59 L Pulse Rhythm [Apical] Regular Pulse Strength [Apical] Normal Respiratory Rate 16 17 Respiratory Effort / Characteristics Non-Labored Spontaneous Respiratory Depth Normal Respiratory Pattern Regular Blood Pressure 164/77 H Blood Pressure [Left Arm] 149/71 H 176/82 H Blood Pressure Mean 106 Blood Pressure Mean [Left Arm] 97 113 Blood Pressure Position Sitting Blood Pressure Position [Left Arm] Pulse Oximetry 99 97 Oxygen Delivery Method Room Air Room Air 01/27/19 14:28 01/27/19 16:42 01/27/19 18:39 Temperature Temperature Source Sepsis Recent Fever Within 48 Hours Sepsis Action Taken by Nursing Pulse Rate Pulse Rate [Apical] 57 L 62 76 Pulse Rhythm [Apical] Regular Regular Pulse Strength [Apical] Normal Normal Respiratory Rate 16 18 18 Respiratory Effort / Characteristics Non-Labored Spontaneous Non-Labored Respiratory Depth Normal Normal Respiratory Pattern Regular Regular Blood Pressure Blood Pressure [Left Arm] 97/71 L 132/76 124/76 Blood Pressure Mean Blood Pressure Mean [Left Arm] 79 94 92 Blood Pressure Position Blood Pressure Position [Left Arm] Lying Pulse Oximetry 96 98 96 Oxygen Delivery Method Room Air Room Air GENERAL: Awake, alert, chronically ill-appearing, in no distress HENT: Normocephalic, atraumatic. Oropharynx with dry mucous membranes and otherwise unremarkable. EYES: Normal conjunctiva. Sclera non-icteric. EOMI. No nystamgus. PEARRL. NECK: Supple. No nuchal rigidity. FROM. No JVD. RESPIRATORY: Clear to auscultation bilaterally. CARDIAC: Regular rate, normal rhythm. Extremities warm and well perfused. Pulses equal. ABDOMEN: Soft, non-distended. No tenderness to palpation. No rebound or guarding. No masses. RECTAL: Deferred. MUSCULOSKELETAL: Chest examination reveals no tenderness. The back is symmetrical on inspection without obvious abnormality. There is no CVA tenderness to palpation. No joint edema. LOWER EXTREMITIES: Calves are equal size bilaterally and non-tender. No edema. No discoloration. NEURO: Moderate to severe expressive and receptive aphasia. Normal sensorium. No sensory or motor deficits noted. Moving all extremities equally. SKIN: No rash or jaundice noted. Course 1027: Past medical records reviewed. The patient was evaluated in room B10. A complete history and physical exam was performed. 1454: I update the patient on the test results. 1710: Case d/w Dr. Washington, patient's [facility] neuro-oncologist. 1730: Case was discussed with Dr. Celis, [facility] hospitalist, who will signout to Dr. Umana, on-coming night hospitalist. Administered Medications Gadobutrol (Gadavist 65ml) 4.5 ml IV ONCE PRN PRN Reason: Interaction Checking Stop: 01/31/19 16:05 Last Admin: 01/27/19 16:06 Dose: 4.5 ml Documented by: [id number] Discontinued Medications Dexamethasone Sodium Phosphate (Decadron Pf) Confirm Administered Dose 10 mg .ROUTE .STK-MED ONE Stop: 01/27/19 11:22 Last Admin: 01/27/19 11:22 Dose: 10 mg Documented by: [id number] Sodium Chloride (Nss 1000ml) 1,000 mls @ 999 mls/hr IV .Q1H1M STA Stop: 01/27/19 11:35 Last Infusion: 01/27/19 12:04 Dose: 0 mls/hr Documented by: [id number] Admin: 01/27/19 11:01 Dose: 999 mls/hr Documented by: [id number] Dexamethasone Sodium Phosphate (10 mg/ Syringe) 2.5 mls @ 1 mls/min IV NOW STA Stop: 01/27/19 10:37 Last Admin: 01/27/19 11:22 Dose: Not Given Documented by: [id number] Sodium Chloride (Nss 1000ml) 1,000 mls @ 999 mls/hr IV .Q1H1M ONE Stop: 01/27/19 12:50 Last Infusion: 01/27/19 13:11 Dose: 0 mls/hr Documented by: [id number] Admin: 01/27/19 12:05 Dose: 999 mls/hr Documented by: [id number] Ceftriaxone Sodium (Rocephin) 1,000 mg in 50 mls @ 100 mls/hr IV NOW STA Stop: 01/27/19 15:19 Last Infusion: 01/27/19 15:59 Dose: 0 mls/hr Documented by: [id number] Admin: 01/27/19 15:22 Dose: 100 mls/hr Documented by: [id number] Levetiracetam 750 mg/ Dextrose 107.5 mls @ 440 mls/hr IV NOW STA Stop: 01/27/19 17:29 Last Infusion: 01/27/19 18:39 Dose: 0 mls/hr Documented by: [id number] Admin: 01/27/19 18:00 Dose: 440 mls/hr Documented by: [id number] Lorazepam (Ativan) 0.5 mg SL NOW STA Stop: 01/27/19 12:53 Last Admin: 01/27/19 15:27 Dose: Not Given Documented by: [id number] Lorazepam (Ativan) Confirm Administered Dose 1 mg .ROUTE .STK-MED ONE Stop: 01/27/19 15:26 Last Admin: 01/27/19 15:27 Dose: 1 mg Documented by: [id number] Medical Decision Making Differential Diagnosis Differential diagnosis: Etiologies such as metabolic, infection, hypo/hyperglycemia, electrolyte ab normalities, cardiac sources, intracerebral event, toxicologic, neurologic, stroke as well as others were entertained. Medical Records Attestation: I reviewed the patient's medical records. Home Medications Current Medication List: was personally reviewed by me Laboratory Data Attestation: I reviewed the patient's lab results. Result diagrams: 01/27/19 10:40 01/27/19 10:40 Lab Results 01/27/19 01/27/19 01/27/19 Range/Units 10:40 10:40 10:40 WBC 6.17 (4.8-10.8) K/uL RBC 3.95 L (4.2-5.4) M/uL Hgb 11.9 L (12.0-16.0) g/dL Hct 34.6 L (37-47) % MCV 87.6 (80-100) fL MCH 30.1 (25-34) pg MCHC 34.4 (32-36) g/dL RDW Std Deviation 48.3 H (36.4-46.3) fL RDW Coeff of Russ 15.0 H (11.5-14.5) % Plt Count 143 (130-400) K/uL MPV 8.0 (7.4-10.4) fL Immature Gran % (Auto) 0.2 % Neut % (Auto) 79.2 % Lymph % (Auto) 7.8 % Morris % (Auto) 12.0 % Eos % (Auto) 0.6 % Baso % (Auto) 0.2 % Immature Gran # (Auto) 0.01 (0.00-0.02) K/uL Neut # (Auto) 4.89 (1.4-6.5) K/uL Lymph # (Auto) 0.48 L (1.2-3.4) K/uL Morris # (Auto) 0.74 H (0.11-0.59) K/uL Eos # (Auto) 0.04 (0-0.5) K/uL Baso # (Auto) 0.01 (0-0.2) K/uL PT 10.4 (9.0-12.0) Seconds INR 1.0 (0.9-1.1) Sodium 136 (136-145) mmol/L Potassium 3.7 (3.5-5.1) mmol/L Chloride 105 (98-107) mmol/L Carbon Dioxide 27 (21-32) mmol/L Anion Gap 4.0 (3-11) BUN 16 (7-18) mg/dl Creatinine 0.45 L (0.6-1.2) mg/dl Est Cr Clr Drug Dosing Not Reportable Est GFR ( Amer) 118.5 Est GFR (Non-Af Amer) 102.2 BUN/Creatinine Ratio 35.0 H (10-20) Glucose 84 (70-99) mg/dl Calcium 8.5 (8.5-10.1) mg/dl Phosphorus 3.6 (2.5-4.9) mg/dl Magnesium 2.0 (1.8-2.4) mg/dl Total Bilirubin 0.4 (0.2-1) mg/dl AST 12 L (15-37) U/L ALT 16 (12-78) U/L Alkaline Phosphatase 34 L (45-117) U/L Troponin I < 0.015 (0-0.045) ng/ml Total Protein 6.6 (6.4-8.2) gm/dl Albumin 3.6 (3.4-5.0) gm/dl Globulin 3.0 (2.5-4.0) gm/dl Albumin/Globulin Ratio 1.2 (0.9-2) Lipase 163 (73-393) U/L TSH 2.820 (0.300-4.500) uIu/ml Urine Color Urine Appearance (Clear) Urine pH (4.5-7.5) Ur Specific Brighton (1.000-1.030) Urine Protein (Negative) Urine Glucose (UA) (Negative) Urine Ketones (Negative) Urine Blood (Negative) Urine Nitrite (Negative) Urine Bilirubin (Negative) Urine Urobilinogen (Negative) Ur Leukocyte Esterase (Negative) Urine RBC (0-4) /hpf Urine WBC (0-5) /hpf Ur Epithelial Cells (0-5) /lpf Urine Bacteria (Negative) Hyaline Casts (0-5) /lpf 01/27/19 Range/Units 11:00 WBC (4.8-10.8) K/uL RBC (4.2-5.4) M/uL Hgb (12.0-16.0) g/dL Hct (37-47) % MCV (80-100) fL MCH (25-34) pg MCHC (32-36) g/dL RDW Std Deviation (36.4-46.3) fL RDW Coeff of Russ (11.5-14.5) % Plt Count (130-400) K/uL MPV (7.4-10.4) fL Immature Gran % (Auto) % Neut % (Auto) % Lymph % (Auto) % Morris % (Auto) % Eos % (Auto) % Baso % (Auto) % Immature Gran # (Auto) (0.00-0.02) K/uL Neut # (Auto) (1.4-6.5) K/uL Lymph # (Auto) (1.2-3.4) K/uL Morris # (Auto) (0.11-0.59) K/uL Eos # (Auto) (0-0.5) K/uL Baso # (Auto) (0-0.2) K/uL PT (9.0-12.0) Seconds INR (0.9-1.1) Sodium (136-145) mmol/L Potassium (3.5-5.1) mmol/L Chloride (98-107) mmol/L Carbon Dioxide (21-32) mmol/L Anion Gap (3-11) BUN (7-18) mg/dl Creatinine (0.6-1.2) mg/dl Est Cr Clr Drug Dosing Est GFR ( Amer) Est GFR (Non-Af Amer) BUN/Creatinine Ratio (10-20) Glucose (70-99) mg/dl Calcium (8.5-10.1) mg/dl Phosphorus (2.5-4.9) mg/dl Magnesium (1.8-2.4) mg/dl Total Bilirubin (0.2-1) mg/dl AST (15-37) U/L ALT (12-78) U/L Alkaline Phosphatase (45-117) U/L Troponin I (0-0.045) ng/ml Total Protein (6.4-8.2) gm/dl Albumin (3.4-5.0) gm/dl Globulin (2.5-4.0) gm/dl Albumin/Globulin Ratio (0.9-2) Lipase (73-393) U/L TSH (0.300-4.500) uIu/ml Urine Color Kimble Urine Appearance Cloudy A (Clear) Urine pH 7.5 (4.5-7.5) Ur Specific Brighton 1.015 (1.000-1.030) Urine Protein 1+ H (Negative) Urine Glucose (UA) Negative (Negative) Urine Ketones Negative (Negative) Urine Blood 3+ H (Negative) Urine Nitrite Negative (Negative) Urine Bilirubin Negative (Negative) Urine Urobilinogen Negative (Negative) Ur Leukocyte Esterase 2+ H (Negative) Urine RBC >30 H (0-4) /hpf Urine WBC >30 H (0-5) /hpf Ur Epithelial Cells 0-5 (0-5) /lpf Urine Bacteria 2+ H (Negative) Hyaline Casts 0-5 (0-5) /lpf Imaging Data Radiologist's Impression: Radiology results as stated below per my review and t he radiologist's interpretation: XR chest 1V portable CLINICAL HISTORY: Atypical chest pain COMPARISON STUDY: 07/29/2018 FINDINGS: The heart is at the upper limits of normal in size. There is no failure. There is no focal pulmonary consolidation. There are no pleural effusions.[ IMPRESSION: No active disease in the chest. Electronically signed by: Alec Dee M.D. 01/27/2019 10:[address] head/brain wo con CLINICAL HISTORY: aphasia, h/o GBM COMPARISON STUDY: 10/27/2018, 11/18/2018 TECHNIQUE: Axial CT of the brain is performed from the vertex to the skull base. IV contrast was not administered for this examination. A dose lowering technique was utilized adhering to the principles of ALARA. CT DOSE: FINDINGS: There are postsurgical changes of a left parietotemporal craniotomy and tumor re section. There is left temporal lobe encephalomalacia. There is dilatation of the left temporal horn, likely secondary to volume loss. There is no CT evidence of acute cortical infarction. There is no midline shift. There is no significant hydrocephalus. Inflammatory changes are present within the left sphenoid and ethmoid sinuses. IMPRESSION: Postsurgical changes of a left parietotemporal craniotomy and tumor resection. Postsurgical encephalomalacia. No acute findings on this noncontrast CT study. If there is clinical concern over the presence of tumor recurrence or acute stroke, an MRI could be obtained in follow-up. Electronically signed by: Alec Dee M.D. 01/27/2019 11:23 AM ------- MR brain wo/w con CLINICAL HISTORY: 69 years-old Female presenting with aphasia, recent confusion worsening today, left-sided hearing loss, increasing right-sided hearing loss, history of glioblastoma multiforme. TECHNIQUE: Multisequence, multiplanar MR imaging of the brain was performed before and after the administration of intravenous contrast. IV contrast: 4.5 mL of Gadavist. COMPARISON: Noncontrast CT head from earlier today and brain MR is from 10/28/2018. FINDINGS: Localizer images: Unremarkable. Resolution of prior midline shift. Ex vacuo dilatation of the temporal horn of the left lateral ventricle. Cystic encephalomalacia and surrounding gliosis in the periphery of the anterior left temporal lobe status post mass resection. There is thin linear enhancement along the majority of the periphery of the operative bed. There is slightly thicker enhancement along the posterior aspect of the resection cavity (series 11 image 70). This measures 20 mm in diameter. There is also a focal separates rim-enhancing 10 mm nodule inferiorly in the left temporal lobe (series 11 image 51 post (. This was previously present on the MR from 10/28/2018 and is decreased in size from that time, when it measured 17 mm. The additional separate nodule more anteromedially in the left temporal lobe is no longer present. No mass effect or midline shift. No additional sites of enhancement to suggest spread of disease within the visualized portion of the neural axis. T2 skull base flow voids preserved. Postsurgical changes of left pterional craniotomy. Fluid noted within the bilateral mastoid air cells. IMPRESSION: 1. Postsurgical changes of left temporal lobe mass resection. Thick peripheral enhancement along the resection cavity raises concern for potential residual disease. Additionally, separate rim-enhancing nodule immediately inferior to the primary mass in the left temporal lobe concerning for residual disease. Electronically signed by: Luke Dowling M.D. 01/27/2019 4:25 PM Dictated: 01/27/19 161 Transcribed: 01/27/191612 ECG Data Attestation: I personally reviewed and interpreted this ECG as follows: Indication: other (aphasia) Rate (beats per minute): 55 Rhythm: sinus bradycardia Findings: + other (normal axis); no acute ischemic change MDM Narrative The patient is a pleasant 69-year-old woman with a past medical history of a recent diagnosis in October 2018 of a temp oral glioblastoma status post excision and chemotherapy and radiation who presents emergency department from the [place] accompanied by family with a recurrence of her prior expressive and receptive aphasia which was noticed today per hpi. On arrival patient is chronically ill- appearing but no acute distress, afebrile stable vital signs. She is moving all extremities equally. Face is symmetric. She does exhibit moderate to severe expressive and receptive aphasia where she intermittently is able to follow commands. EKG without overt acute ischemia. Chest x-ray unremarkable. WBC and platelets within normal limits. H/H similar to prior values. Chemistry without acidosis. Troponin negative. UA with likely UTI with LE 2+, WBC>30, and 2+ bacteria. CT without contrast demonstrated postsurgical changes of a left parietotemporal craniotomy and tumor resection. However no acute findings. Given the patient's symptoms appears similar to her prior initial diagnosis, per the family, an MRI with and without contrast was ordered. Upon reevaluation after IV fluid hydration the patient did appear to have significant improvement and was able to speak more clearly though still with residual expressive and aphasia. Due to heavy MRI use today there was delay in obtaining the MRI. MRI obtained and was reviewed with Radiologist, Dr. Dowling, and overall appears improved from postsurgical MRI from October which was obtained from [facility] but there are some lesions with enhancement suggesting residual disease. The patient's ca se and MRI findings were reviewed with patient's neuro oncologist, Dr. Washington, symptoms likely were related to focal seizure activity. The patient is only on 250 mg of Keppra twice daily he recommends increasing dose to 750 mg twice daily. Additionally can resume the patient's dexamethasone. She was given 10 mg today and subsequently can be given 4 mg daily x5 days followed by 2 mg daily until reevaluated in [place]. Does not believe that the patient needs transfer at this time and can be managed locally here at [facility]. He will be available for any questions/consultation from the admitting team. Plan was reviewed with the patient and family who are agreeable with plan for admission here. Case was discussed with Dr. Celis, [facility] hospitalist, who will signout to Dr. Umana, on-coming night hospitalist. Impression & Plan Aphasia, Partial seizures with aphasia, Acute UTI (urinary tract infection), Dehydration Discharge Plan Visit Data Chief Complaint: Neuro Symptoms/Deficit Stated Complaint: CONGISTION,SLURRING OF SPEECH ED Provider: Jones Blevins Discharge Problem: Aphasia, Partial seizures with aphasia, Acute UTI (urinary tract infection), Dehydration Forms Stand Alone Forms: My [facility] Prescriptions Prescriptions: No Action atenolol 25 mg tablet 25 mg PO QAM RF: 0 levetiracetam 250 mg tablet 250 mg PO BID RF: 0 famotidine 20 mg tablet 20 mg PO QAM RF: 0 bisacodyl [Dulcolax (bisacodyl)] 10 mg suppository 10 mg WV DAILY PRN (Reason: .) RF: 0 magnesium hydroxide [Milk of Magnesia] 400 mg/5 mL suspension 30 ml PO DAILY PRN (Reason: Constipation) RF: 0 polyethylene glycol 3350 [ClearLax] 17 gram/dose powder 17 gm PO DAILY PRN (Reason: Constipation) RF: 0 levothyroxine 88 mcg tablet 88 mcg PO QAM RF: 0 pravastatin 20 mg tablet 20 mg PO QAM RF: 0 The scribe's documentation has been prepared under my direction and personally reviewed by me in its entirety. I confirm that the note above accurately reflects all work, treatment, procedures, and medical decision making performed by me.
--- NOTE | 2019-01-27 16:26 | Magnetic Resonance Report ---
MR brain wo/w con CLINICAL HISTORY: 69 years-old Female presenting with aphasia, recent confusion worsening today, left -sided hearing loss, increasing right-sided hearing loss, history of glioblastoma multiforme. TECHNIQUE: Multisequence, multiplanar MR imaging of the brain was performed before and after the admi nistration of intravenous contrast. IV contrast: 4.5 mL of Gadavist. COMPARISON: Noncontrast CT head from earlier today and brain MR is from 10/28/2018. FINDINGS: Localizer images: Unremarkable. Resolution of prior midline shift. Ex vacuo dilatation of the temporal horn of the left lateral ventr icle. Cystic encephalomalacia and surrounding gliosis in the periphery of the anterior left temporal lobe status post mass resection. There is thin linear enhancement along the majority of the periphery of the operative bed. There is slightly thicker enhancement along the posterior aspect of the resect ion cavity (series 11 image 70). This measures 20 mm in diameter. There is also a focal separates rim -enhancing 10 mm nodule inferiorly in the left temporal lobe (series 11 image 51 post (. This was pre viously present on the MR from 10/28/2018 and is decreased in size from that time, when it measured 17 mm. The additional separate nodule more anteromedially in the left temporal lobe is no longer presen t. No mass effect or midline shift. No additional sites of enhancement to suggest spread of disease w ithin the visualized portion of the neural axis. T2 skull base flow voids preserved. Postsurgical changes of left pterional craniotomy. Fluid noted wi thin the bilateral mastoid air cells. IMPRESSION: 1. Postsurgical changes of left temporal lobe mass resection. Thick peripheral enhancement along the resection cavity raises concern for potential residual disease. Additionally, separate rim-enhancing nodule immediately inferior to the primary mass in the left temporal lobe concerning for residual di sease. Electronically signed by: uLke Dowling M.D. 01/27/2019 4:25 PM
[2019-01-27] MEDS ORDERED: levETIRAcetam 750 MG in DEXTROSE 5% 100 ML IV STA (17:15)
--- NOTE | 2019-01-27 20:10 | History & Physical Report ---
Date of Service January 27, 2019 Assessment & Plan (1) Aphasia: Chanda Granados is a 69-year-old female with a history of glioblastoma, hypertension, and hyperlipidemia who presented to the ED following 3 hours of dysarthria and confusion. She had similar symptoms when she presented for her original tumor resection in October 2018. She has had cognitive decline since chemo/radiation treatment in -12/2018 but acutely worsened morning of admission. Altered mental status Differential includes affective residual glioblastoma disease, partial seizure activity, metabolic encephalopathy of uro-sepsis No residual weakness, seizure-like activity, or incontinence during her episode MRIbrain shows thick enhancement and a secondary mass around her left resection area which may suggest residual disease Case discussed by emergency provider with [facility] neurologist Increase Keppra from 250 mg twice daily to 750 mg twice daily Dexamethasone 4 mg daily x5 days followed by 2 mg daily until follow-up Expressive aphasia/word salad speech suspicious for Wernicke's territory involvement UTI UA on admission with 1+ protein, 2+ leukocyte esterase, 2+ bacteria, greater than 30 white blood cells Received 1 dose of Rocephin 1 g IV on admission UC pending. Continue Rocephin 1 g daily. - At risk for MDR UTI (lives in SNF). Follow micro for sensitivities/speciation. Hypertension Normotensive on admit Continue atenolol 25 mg every morning Hypothyroidism Continue RESEARCH EPIDEMIOLOGIST levothyroxine 88 mcg daily TSH normal on admit Hyperlipidemia Continue pravastatin 20 mg every morning DVT prophylaxis: SCDs. Diet: Regular CODE STATUS: Full code Disposition: Admit to med/surg (2) Partial seizures with aphasia: (3) Dehydration: (4) Acute UTI (urinary tract infection): History of Present Illness Chief Complaint: dysarthria, confusion Primary Care Provider: Luke Bentley MD Chanda Granados is a 69-year-old female with a history of glioblastoma, hypertension, and hyperlipidemia who presented to the ED following 3 hours of dysarthria and confusion. She had similar symptoms when she presented for her original tumor resection in October 2018. She is seen at bedside with her brother and daughter. They report that Chanda had a resection of a left temporal glioblastoma in 10/2018. At baseline she is normally very aware and has not had problems speaking since the surgery. [facility] who contacted the family this morning when they became concerned that she is having difficulty speaking and was not swallowing her medications this morning. When the family arrived and noted that she was able to form words, but was having word salad sentences and substituting words that did not always make sense. She also appeared to be confused with some cognition difficulty. She is able to identify that some of her morning medications were missing, but when she tried to take the meds she would fill a pill cup with water with the pills in it and try to swallow it several times. They presented to the emergency department for evaluation and note that she slowly seemed to improve over several hours. No episodes of shaking, tongue biting, or focal residual weakness were observed. She has a history of intermittent bladder incontinence at baseline, but no bowel or bladder incontinence was observed or reported by the [place] staff. Chanda's family notes that she has had a right hernia for 15 years which occasionally presses on her bladder and gives her some incontinence, Chanda is very sensitive to this and will stuff toilet paper in the area to prevent leakage and occasionally scrub the area aggressively causing irritation. She reports she also only changes her pad weekly out of concern for waste. Since receiving radiation and chemotherapy in November and December 2018 but he has had some chronic decrease in cognition and memory. Her family reports that her short-term memory is very poor, and that his coping mechanisms she will tell herself stories over and over to retain information. They know that she has had some progressive increase in this confusion and deficits, however her current presentation seems much below her normal baseline. Her case was discussed with their [facility] neurologist Dr. Walden who recommended increasing her Keppra from 250 twice daily to 750 twice daily, treating with dexamethasone for 4 mg for 5 days, and then continuing dexamethasone 2 mg daily until follow-up. Medications: Atenolol, famotidine, Keppra, Synthroid, pravastatin. Last took he r Keppra this morning. Medical history: Glioblastoma, hypertension, hyperlipidemia Surgical history: jaw surgery, unspecified. Tonsillectomy, skin cancer excision. Left temporal glioblastoma excision with adjuvant chemotherapy and radiation. Allergies: Bactrim (rash), orange entheses hives) Family history: Mother: Coronary artery disease, [place] Brother mitral valve prolapse. Father: Thyroid disease No history ofother cancers or colon cancers Social Lives at the [place] long-term facility. Alcohol: None Recreational drug/marijuana: None: - Tobacco use: No current or former CODE STATUS: Full code Allergies Allergy/AdvReac Type Severity Reaction Status Date / Time Bactrim Allergy Unknown RASH Verified 09/03/17 19:13 sulfamethoxazole Allergy Unknown RASH Verified 01/27/19 12:41 trimethoprim Allergy Unknown RASH Verified 01/27/19 12:41 [place] Allergy Intermediate Rash on Uncoded 01/27/19 12:41 face / hives Home Medications Home Medications Medication Instructions Recorded Confirmed Type levothyroxine 88 mcg PO QAM 10/27/18 01/27/19 History pravastatin 20 mg PO QAM 10/27/18 01/27/19 History atenolol 25 mg tablet 25 mg PO QAM 11/13/18 01/27/19 History bisacodyl 10 mg rectal suppository 10 mg MO DAILY PRN 11/13/18 01/27/19 History famotidine 20 mg tablet 20 mg PO QAM 11/13/18 01/27/19 History levetiracetam 250 mg tablet 250 mg PO BID 11/13/18 01/27/19 History magnesium hydroxide 400 mg/5 mL 30 ml PO DAILY PRN ml 11/13/18 01/27/19 History oral suspension polyethylene glycol 3350 17 17 gm PO DAILY PRN 11/13/18 01/27/19 History gram/dose oral powder Past Med/Surg History Medical History Hypertension (Chronic) Hyperlipidemia (Chronic) Glioblastoma (Acute) Diagnosed 10/28/18 - WHO Grade IV Hypothyroidism (Chronic) History of basal cell cancer (Resolved) 2009 - Removed from right lower eyelid area Surgical History History of mandibular surgery (Acute) 1981 [place] [facility] [place] Grandfather (Paternal) , Passed in 50s of unknown CA (exposed to lead paint as prof dial painter) No problems noted. Mother , Passed age 69 of [place] No problems noted. Father , Passed age 84 of poor circulation No problems noted. Brother No problems noted. Brother , Passed as an No problems noted. Sister , Passed as an infant No problems noted. Other Has no children Social History Visual Impairment: Limited Hearing Ability: Normal Beliefs That Will Affect Care: None marital status: Single Current Living Situation: Personal Care Facility current occupational status: retired current occupation: Retired from [employer] Feels Safe at Home: Yes Smoking Status: Never smoker Hx Alcohol Use: No Hx Substance Use: No Childhood Exposure to Second-Hand Smoke: Yes during the past year weight has: remained stable Dental Care, Regularly: Yes Review of Systems Review of Systems: Unobtainable due to cognitive status Physical Exam Physical Exam: General: Somnolent, arouses to voice transiently. Chronically ill-appearing. No acute distress. HEENT: Atraumatic, normocephalic. Mucous membranes dry. Pupils equally reactive to light and accommodation. Extraocular movements intact. Pulm: CTAB A&P. -wheezes, -rales, -rhonchi. Symmetrical chest rise. No increase work of breathing. No respiratory distress. Cardiac: RRR, -mrg. Radial pulses intact and symmetrical. Abdominal: Right lower inguinal reducible hernia present. No other masses. Nontender, nondistended, soft. BS present. Neurologic: Limited by cognitive status/post MRI sedation. Endorses sensation in her fingertips and feet bilaterally. Moves all extremities equally. Sits up spontaneously. Cases around the room spontaneously. Intermittent expressive aphasia appreciated. Results & Data Vital Signs (Past 12 Hours) Vital Signs Temp Pulse Pulse Resp BP BP Pulse Ox 01/27/19 18:39 76 18 124/76 96 01/27/19 16:42 62 18 132/76 98 01/27/19 14:28 57 L 16 97/71 L 96 01/27/19 12:58 176/82 H 01/27/19 12:05 59 L 17 149/71 H 97 01/27/19 10:10 36.4 C L 57 L 16 164/77 H 99 Supervising Physician Co-Signing Physician Notes Pt seen/examined with family at bedside and in conjunction with resident MD Marissa Brown. Orders and plan of admission reviewed with resident. 69 y/o F Hx glioblastoma, HTN, HLD - post resection, chemo, radiation at [place]. She has cognitive deficits and resides in a skilled nursing. She has been progressively confused and dysarthric for 2 days and presented to the hospital therefore. There is residual disease on imaging which is not unexpected. She also has a UTI however. She could not provide a history or ROS reliably. OE Pleasantly confused, thin, elderly-appearing F - awake and disoriented S1,2 R CTAB NT, ND No CCE Neuro deficits at baseline without acute focal motor signs P: The case was discussed with her neurologist at [place]. She will be placed on a dexamethasone taper. We will treat her UTI and in the best case scenario, this would improve her cognition. We have not affected additional changes to her medications. PG Care Time/CCT Total # of Minutes Spent Total Time Spent with Patient: Total time spent is greater than 50% in coordination of care (as documented) at patient's floor/unit and/or counseling patient: Resident Activity Tracking Resident Involvement: Resident Care Provided Care Provided: Adult Hospital Medicine
[2019-01-27] MEDS ORDERED: BISACODYL 10 MG SUPP PR PRN (22:17)
[2019-01-27] MEDS ORDERED: MAGNESIUM HYDROXIDE SUSP 30 ML UDC PO PRN (22:17)
[2019-01-28] MEDS: LEVOTHYROXINE SODIUM 88 MCG TABLET PO SCH (06:15)
[2019-01-28] MEDS: PRAVASTATIN SOD 20 MG TAB PO SCH (07:39)
[2019-01-28] MEDS: FAMOTIDINE 20 MG TAB PO SCH (07:39)
[2019-01-28] MEDS: levETIRAcetam 250 MG TAB PO SCH ×2 (07:39→20:26)
[2019-01-28] MEDS: dexAMETHasone 4 MG TAB PO SCH (07:39)
[2019-01-28] MEDS: ATENOLOL 25 MG TABLET PO SCH (07:39)
--- NOTE | 2019-01-28 12:42 | Hospitalist Progress Note ---
Date of Service January 28, 2019 Assessment & Plan (1) Acute encephalopathy: - Presented with acute aphasia/worsening confusion in setting of glioblastoma s/p resection, chemo and radiation therapy. - Symptoms may be related to acute infection (UTI) vs. residual glioblastoma vs. partial seizure activity. - MRI showed thick enhancement and secondary mass around left resection area -- may suggest residual disease. - Case was discussed [place] [facility] appreciate input. Will hold michael ro consult as inpt. - EEG pending to evaluate for seizure activity. - Increased Keppra to 750 mg BID. - Started Dex 4 mg x 5 days, then 2 mg daily. - On IV abx for treatment of UTI; CXR negative for infection. - Concern for Wernicke's territory involvement of glioblastoma. (2) Aphasia: - Possibly related to residual disease -- see above. - Aphasia is slightly improved overall today but pt. remains confused. (3) Glioblastoma: - S/p resection in October 2018; received chemo/radiation therapy November to December 2018 but has had cognitive decline over last 2 months since starting therapy. - Will need to follow up with outpatient oncologist at discharge. (4) Partial seizures with aphasia: - No evidence of acute seizure activity at this time. - Will obtain EEG for further evaluation. - Increased Keppra to 750 mg BID per [facility]. (5) Acute UTI (urinary tract infection): - UC positive for E. coli, sensitivities to follow. - Continue Ceftriaxone daily. (6) Dehydration: - Noted on admission, now improved. - Encouraged PO intake. (7) Hypertension: - Continue Atenolol as prescribed. (8) Hyperlipidemia: - Continue statin as prescribed. (9) Hypothyroidism: - TSH was 2.82. - Continue Synthroid 88 mcg daily. (10) DVT prophylaxis: - SCDs; holding pharmalogic ppx in setting of glioblastoma. Dispo: Med/surg for treatment of altered mental status; PT/OT ordered for discharge planning. Supervising Physician Co-Signing Physician Notes Attending Attestation - Chart reviewed in detail, care plan d/w YSABEL Aguilera. I agree w/ the alexander components of her documentation. Patient with GBM s/p resection, chemo and xrt earlier this spring - [place] [facility]. Presenting with encephalopathy. Found to have UTI. MRI brain findings noted. Remains on abx, higher dose of keppra, and dexamethasone (which is new for her). Await EEG. Supportive care. Simeon López MD Subjective Pt. is very confused -- she is alert to person but otherwise is not aware of surroundings. Baseline mental status is unclear -- may have acute confusion related to infection. Review of Systems Review of Systems: Unobtainable due to cognitive status Physical Exam Physical Exam: General: Resting comfortably HEENT: NC/AT; PERRLA with EOMI; [place] conjunctiva, MMM. No erythema of posterior pharynx Neck: Supple and nontender Cardiac: RRR Lungs: CTA bilaterally Abdomen: Bowel normoactive X 4; Nontender to palpation Extremities: Warm. No edema present Neuro: Alert to person, otherwise not oriented to surroundings. Skin: No rash Results & Data Vital Signs (Past 12 Hours) Vital Signs Temp Pulse Resp BP Pulse Ox 01/28/19 07:38 36.5 C 62 20 149/77 H 97 Laboratory Results 01/27/19 Range/Units 10:40 Hepatitis C Ab Screen Neg (Neg) PG Care Time/CCT Total # of Minutes Spent Total Time Spent with Patient: Total time spent is greater than 50% in coordination of care (as documented) at patient's floor/unit and/or counseling patient:
[2019-01-28] MEDS: cefTRIAXone SODIUM 1,000 MG in DEXTROSE 5% 50 ML IV SCH (16:05)
[2019-01-29] MEDS: LEVOTHYROXINE SODIUM 88 MCG TABLET PO SCH (05:48)
[2019-01-29 05:58] LABS: Hematocrit (blood only) 35.8 % (37-47); Hemoglobin 12.1 g/dL (12.0-16.0); Mean Corpuscular Hgb Conc 33.8 g/dL (32-36); Mean Corpuscular Volume 87.3 fL (80-100); Mean Platelet Volume 8.4 fL (7.4-10.4); Platelet Count 170 K/uL (130-400); RDW Coefficient of Variation 15.3 % (11.5-14.5); RDW Standard Deviation 48.9 fL (36.4-46.3); White Blood Count 4.15 K/uL (4.8-10.8)
[2019-01-29 06:40] LABS: Albumin Level 3.2 gm/dl (3.4-5.0); BUN Creatinine Ratio 27.1 (10-20); Calcium 8.6 mg/dl (8.5-10.1); Magnesium 2.2 mg/dl (1.8-2.4); Potassium 3.8 mmol/L (3.5-5.1)
[2019-01-29 06:43] LABS: Bilirubin,Total 0.4 mg/dl (0.2-1); Globulin 3.1 gm/dl (2.5-4.0); Total Protein 6.3 gm/dl (6.4-8.2)
[2019-01-29] MEDS: levETIRAcetam 250 MG TAB PO SCH (07:49)
[2019-01-29] MEDS: PRAVASTATIN SOD 20 MG TAB PO SCH (07:49)
[2019-01-29] MEDS: dexAMETHasone 4 MG TAB PO SCH (07:50)
[2019-01-29] MEDS: ATENOLOL 25 MG TABLET PO SCH (07:50)
[2019-01-29] MEDS: FAMOTIDINE 20 MG TAB PO SCH (07:50)
--- NOTE | 2019-01-29 09:33 | Procedure Note ---
EEG Procedure Note Date of Service January 29, 2019 Start / End Times Start Time: 0815 End Time: 0835 Referring Physician Jenny Carrington PA-C History History of left temporal glioblastoma resection and seizures Home Medication List Home Medications Medication Instructions Recorded Confirmed Type levothyroxine 88 mcg PO QAM 10/27/18 01/27/19 History pravastatin 20 mg PO QAM 10/27/18 01/27/19 History atenolol 25 mg tablet 25 mg PO QAM 11/13/18 01/27/19 History bisacodyl 10 mg rectal suppository 10 mg NV DAILY PRN 11/13/18 01/27/19 History famotidine 20 mg tablet 20 mg PO QAM 11/13/18 01/27/19 History levetiracetam 250 mg tablet 250 mg PO BID 11/13/18 01/27/19 History magnesium hydroxide 400 mg/5 mL 30 ml PO DAILY PRN ml 11/13/18 01/27/19 History oral suspension polyethylene glycol 3350 17 17 gm PO DAILY PRN 11/13/18 01/27/19 History gram/dose oral powder Inpatient Medication List Atenolol (Tenormin) 25 mg PO QAM [facility] Stop: 02/27/19 08:59 Last Admin: 01/29/19 07:50 Dose: 25 mg Documented by: [id number] Admin: 01/28/19 07:39 Dose: 25 mg Documented by: [id number] Dexamethasone (Decadron) 4 mg PO DAILY [facility] Stop: 01/31/19 09:01 Last Admin: 01/29/19 07:50 Dose: 4 mg Documented by: [id number] Admin: 01/28/19 07:39 Dose: 4 mg Documented by: [id number] Famotidine (Pepcid) 20 mg PO QAM [facility] Stop: 02/27/19 08:59 Last Admin: 01/29/19 07:50 Dose: 20 mg Documented by: [id number] Admin: 01/28/19 07:39 Dose: 20 mg Documented by: [id number] Ceftriaxone Sodium 1,000 mg/ (Dextrose) 50 mls @ 100 mls/hr IV Q24H NIRU; Protocol Stop: 02/02/19 15:59 Last Infusion: 01/28/19 16:54 Dose: 0 mls/hr Documented by: [id number] Admin: 01/28/19 16:05 Dose: 100 mls/hr Documented by: [id number] Levetiracetam (Keppra) 750 mg PO BID [facility] Stop: 02/27/19 08:59 Last Admin: 01/29/19 07:49 Dose: 750 mg Documented by: [id number] Admin: 01/28/19 20:26 Dose: 750 mg Documented by: [id number] Admin: 01/28/19 07:39 Dose: 750 mg Documented by: [id number] Levothyroxine Sodium (Synthroid) 88 mcg PO DAILYBB [facility] Stop: 02/27/19 06:29 Last Admin: 01/29/19 05:48 Dose: 88 mcg Documented by: [id number] Admin: 01/28/19 06:15 Dose: 88 mcg Documented by: [id number] Pravastatin Sodium (Pravachol) 20 mg PO QAM [facility] Stop: 02/27/19 08:59 Last Admin: 01/29/19 07:49 Dose: 20 mg Documented by: [id number] Admin: 01/28/19 07:39 Dose: 20 mg Documented by: [id number] Discontinued Medications Dexamethasone Sodium Phosphate (Decadron Pf) Confirm Administered Dose 10 mg .ROUTE .STK-MED ONE Stop: 01/27/19 11:22 Last Admin: 01/27/19 11:22 Dose: 10 mg Documented by: [id number] Gadobutrol (Gadavist 65ml) 4.5 ml IV ONCE PRN PRN Reason: Interaction Checking Stop: 01/31/19 16:05 Last Admin: 01/27/19 16:06 Dose: 4.5 ml Documented by: [id number] Sodium Chloride (Nss 1000ml) 1,000 mls @ 999 mls/hr IV .Q1H1M STA Stop: 01/27/19 11:35 Last Infusion: 01/27/19 12:04 Dose: 0 mls/hr Documented by: [id number] Admin: 01/27/19 11:01 Dose: 999 mls/hr Documented by: [id number] Dexamethasone Sodium Phosphate (10 mg/ Syringe) 2.5 mls @ 1 mls/min IV NOW STA Stop: 01/27/19 10:37 Last Admin: 01/27/19 11:22 Dose: Not Given Documented by: [id number] Sodium Chloride (Nss 1000ml) 1,000 mls @ 999 mls/hr IV .Q1H1M ONE Stop: 01/27/19 12:50 Last Infusion: 01/27/19 13:11 Dose: 0 mls/hr Documented by: [id number] Admin: 01/27/19 12:05 Dose: 999 mls/hr Documented by: [id number] Ceftriaxone Sodium (Rocephin) 1,000 mg in 50 mls @ 100 mls/hr IV NOW STA Stop: 01/27/19 15:19 Last Infusion: 01/27/19 15:59 Dose: 0 mls/hr Documented by: [id number] Admin: 01/27/19 15:22 Dose: 100 mls/hr Documented by: [id number] Levetiracetam 750 mg/ Dextrose 107.5 mls @ 440 mls/hr IV NOW STA Stop: 01/27/19 17:29 Last Infusion: 01/27/19 18:39 Dose: 0 mls/hr Documented by: [id number] Admin: 01/27/19 18:00 Dose: 440 mls/hr Documented by: [id number] Lorazepam (Ativan) 0.5 mg SL NOW STA Stop: 01/27/19 12:53 Last Admin: 01/27/19 15:27 Dose: Not Given Documented by: [id number] Lorazepam (Ativan) Confirm Administered Dose 1 mg .ROUTE .STK-MED ONE Stop: 01/27/19 15:26 Last Admin: 01/27/19 15:27 Dose: 1 mg Documented by: [id number] Description This is a 21 electrode EEG with a single channel dedicated to limited EKG. The electrodes were placed in accordance with the International 10-20 system. Interpretation The predominant background activity consists of a somewhat irregular 7-8 hertz activity seen over the occipital head regions bilaterally, of up to 50 mV in amplitude. This activity had little attenuation with eye-opening and other alerting procedures. This background activity spread anteriorly in the right hemisphere diffusely and was consistent throughout the recording. The left hemisphere (anterior 2/3 of the head regions) were slower than the right of a 5-6 hertz activity of up to 60-70 microvolts in amplitude. Photic stimulation was performed and elicited no change in the background activity and no abnormal responses were seen. Hyperventilation was not performed. A minimal amount of muscle and movement artifact activity contaminated the recording and did not hinder interpretation to any significant degree. Throughout the recording, no potentially epileptogenic discharges were seen. Patient did not enter into any other sleep stages. In summary, this EEG was abnormal and showed evidence for generalized dysrhythmia of a mild nature with more dysrhythmia seen in the anterior 2/3 of the left hemisphere. This correlates with her glioma. No potentially epileptogenic discharges were seen. Clinical Correlation The dysrhythmia seen on this EEG is consistent with a [id number] encephalopathy which could be due to a wide variety of causes including postictal. The more pronounced slowing in the left hemispheres likely structural secondary to her glioma surgery. The absence of potentially epileptogenic activity does not exclude a seizure disorder since interictal EEGs may not have this. Clinical correlation is required.
[2019-01-29] MEDS: cefTRIAXone SODIUM 1,000 MG in DEXTROSE 5% 50 ML IV SCH (15:49)
--- NOTE | 2019-01-29 16:48 | Discharge Summary ---
Date of Service January 29, 2019 Admission HPI Per Admitting Provider Chanda Granados is a 69-year-old female with a history of glioblastoma, hypertension, and hyperlipidemia who presented to the ED following 3 hours of dysarthria and confusion. She had similar symptoms when she presented for her original tumor resection in October 2018. She is seen at bedside with her brother and daughter. They report that Chanda had a resection of a left temporal glioblastoma in 10/2018. At baseline she is normally very aware and has not had problems speaking since the surgery. [facility] who contacted the family this morning when they became concerned that she is having difficulty speaking and was not swallowing her medications this morning. When the family arrived and noted that she was able to form words, but was having word salad sentences and substituting words that did not always make sense. She also appeared to be confused with some cognition difficulty. She is able to identify that some of her morning medications were missing, but when she tried to take the meds she would fill a pill cup with water with the pills in it and try to swallow it several times. They presented to the emergency department for evaluation and note that she slowly seemed to improve over several hours. No episodes of shaking, tongue biting, or focal residual weakness were observed. She has a history of intermittent bladder incontinence at baseline, but no bowel or bladder incontinence was observed or reported by the [place] staff. Chanda's family notes that she has had a right hernia for 15 years which occasionally presses on her bladder and gives her some incontinence, Chanda is very sensitive to this and will stuff toilet paper in the area to prevent leakage and occasionally scrub the area aggressively causing irritation. She reports she also only changes her pad weekly out of concern for waste. Since receiving radiation and chemotherapy in November and December 2018 but he has had some chronic decrease in cognition and memory. Her family reports that her short-term memory is very poor, and that his coping mechanisms she will tell herself stories over and over to retain information. They know that she has had some progressive increase in this confusion and deficits, however her current presentation seems much below her normal baseline. Her case was discussed with their [facility] neurologist Dr. Walden who recommended increasing her Keppra from 250 twice daily to 750 twice daily, treating with dexamethasone for 4 mg for 5 days, and then continuing dexamethasone 2 mg daily until follow-up. Medications: Atenolol, famotidine, Keppra, Synthroid, pravastatin. Last took her Keppra this morning. Medical history: Glioblastoma, hypertension, hyperlipidemia Surgical history: jaw surgery, unspecified. Tonsillectomy, skin cancer excision. Left temporal glioblastoma excision with adjuvant chemotherapy and radiation. Allergies: Bactrim (rash), orange entheses hives) Family history: Mother: Coronary artery disease, [place] Brother mitral valve prolapse. Father: Thyroid disease No history ofother cancers or colon cancers Social [facility] at the [facility]. Alcohol: None Recreational drug/marijuana: None: - Tobacco use: No current or former CODE STATUS: Full code Admission Exam Per Admitting Provider General: Somnolent, arouses to voice transiently. Chronically ill-appearing. No acute distress. HEENT: Atraumatic, normocephalic. Mucous membranes dry. Pupils equally reactive to light and accommodation. Extraocular movements intact. Pulm: CTAB A&P. -wheezes, -rales, -rhonchi. Symmetrical chest rise. No increase work of breathing. No respiratory distress. Cardiac: RRR, -mrg. Radial pulses intact and symmetrical. Abdominal: Right lower inguinal reducible hernia present. No other masses. Nontender, nondistended, soft. BS present. Neurologic: Limited by cognitive status/post MRI sedation. Endorses sensation in her fingertips and feet bilaterally. Moves all extremities equally. Sits up spontaneously. Cases around the room spontaneously. Intermittent expressive aphasia appreciated. Principal Diagnosis Acute Encephalopathy related to UTI Discharge Exam General: Resting comfortably HEENT: NC/AT; PERRLA with EOMI; Sneads conjunctiva, MMM. No erythema of posterior pharynx Neck: Supple and nontender Cardiac: RRR Lungs: CTA bilaterally Abdomen: Bowel normoactive X 4; Nontender to palpation Extremities: Warm. No edema present Neuro: No deficits noted. Skin: No rash Discharge Data Allergies Allergy/AdvReac Type Severity Reaction Status Date / Time Bactrim Allergy Unknown RASH Verified 09/03/17 19:13 sulfamethoxazole Allergy Unknown RASH Verified 01/27/19 12:41 trimethoprim Allergy Unknown RASH Verified 01/27/19 12:41 Fresh Tillman Allergy Intermediate Rash on Uncoded 01/27/19 12:41 face / hives Consultations 01/27/19 17:15 ED Decision to Admit Stat 07/18/19 16:25 Burn CD for patient Stat Ordered Studies 01/27/19 10:33 CT head/brain wo con Stat CXR 01/27/19 11:49 MR brain wo/w con Stat Hospital Course (1) Acute encephalopathy: Presented with acute aphasia/worsening confusion in setting of glioblastoma s/p resection, chemo and radiation therapy. Symptoms were likely related to acute infection (UTI) as they improved with antibiotic course. MRI showed thick enhancement and secondary mass around left resection area -- may suggest residual disease. Case was discussed with neurologist from [facility], appreciate input. EEG negative for seizure activity. Increased home Keppra to 750 mg BID. Started Dex 4 mg x 5 days, then 2 mg daily. On IV abx for treatment of UTI; CXR negative for infection. Concern for Wernicke's territory involvement of glioblastoma. Acute confusion improved but pt. continued to have baseline changes in mental status likely related to residual disease. Will need to follow up with [facility] neurologist in 7-10 days. MRI report is currently being scanned on disc, will need to bring to appt. Nurse navigator spoke with [facility], Dr. Calderon will need to contact them regarding f/u appt at earlier date. (2) Aphasia: Possibly related to residual disease -- see above. Aphasia was improved at time of discharge. (3) Glioblastoma: S/p resection in October 2018; received chemo/radiation therapy November to December 2018 but has had cognitive decline over last 2 months since starting therapy. Will need to follow up with neurologist at [facility]. (4) Partial seizures with aphasia: No evidence of acute seizure activity at this time. EEG was negative. Increased Keppra to 750 mg BID per [facility] neurologist. (5) Acute UTI (urinary tract infection): UC positive for E. coli, sensitivities to follow. Received Ceftriaxone x 2 days; will complete course of Cipro as outpt. (6) Dehydration: Noted on admission, now improved. Encouraged PO intake. (7) Hypertension: Continued Atenolol as prescribed. (8) Hyperlipidemia: Continued statin as prescribed. (9) Hypothyroidism: TSH was 2.82. Continued Synthroid 88 mcg daily. (10) DVT prophylaxis: SCDs; held pharmalogic ppx in setting of glioblastoma. Discharged back to the [place] on 01/29/19. Will f/u with [facility] neurologist. Total Time Total Time Spent Total Time Spent (In Minutes): >30 minutes Total Time Includes: Examination of the Patient, Discharge Planning, Medication Reconciliation, Communication With Other Providers and Other Discharge Plan Discharge Items Patient Disposition: Personal Intermediate Reason For Visit: AMS,APHASIA Discharge Diagnosis: Altered Mental Status, UTI Condition: Good Discharge Goals: Improve disease control, Improve function, Increase independence, Improve nutritional status and Prevent disease Activity: As commented below Exercise/Sports: Gradually increase as tolerated Non-emergency contact: Primary Care Provider and Oncologist Call non-emergency contact if: you have any medication questions, your symptoms worsen, your pain is not controlled and you have a fever Follow-up/Referrals: Mayank Calderon III, MD [Physician] - (Please, follow up at [facility] Neurology Office with Dr. Calderon. *A nurse from this office will call you with the appointment information. If you have any questions, call the office at [phone].) Luke Bentley MD [Primary Care Provider] - Diet: Regular Addtl Provider Instructions: 1. Acute Encephalopathy related to UTI * Please continue Ciprofloxacin 500 mg twice daily to complete a 5 day course. * Please take a daily probiotic in the setting of antibiotics. 2. Glioblastoma/Cognitive Decline in setting of Chemo/Radiation therapy/Previous Resection * Mental status is now at baseline. * Keppra dose was increased to 750 mg twice daily. * Continue Decadron 4 mg daily to complete a 5 day course (end date: Saturday01/31/19); please start Decadron 2 mg (1/2 tablet) daily on 02/01/19. * Please schedule a follow up with your neurologist from [facility] in 1-2 weeks. * Patient will require supervision when walking outside of the facility. 3. Please schedule a follow up with your primary care provider in 1-2 weeks. 4. Prescriptions for new medications (Increased dose of Keppra, Decadron) were sent to your pharmacy. Prescriptions: New levetiracetam [Keppra] 250 mg Tablet 750 mg PO BID 30 Days Qty: 180 RF: 1 dexamethasone 4 mg Tablet 4 mg PO DAILY 30 Days Qty: 30 RF: 0 ciprofloxacin HCl 500 mg tablet 500 mg PO BID Qty: 10 RF: 0 Continued atenolol 25 mg tablet 25 mg PO QAM RF: 0 famotidine 20 mg tablet 20 mg PO QAM RF: 0 bisacodyl [Dulcolax (bisacodyl)] 10 mg suppository 10 mg CO DAILY PRN (Reason: .) RF: 0 polyethylene glycol 3350 [ClearLax] 17 gram/dose powder 17 gm PO DAILY PRN (Reason: Constipation) RF: 0 levothyroxine 88 mcg tablet 88 mcg PO QAM RF: 0 pravastatin 20 mg tablet 20 mg PO QAM RF: 0 Discontinued levetiracetam 250 mg tablet 250 mg PO BID RF: 0 magnesium hydroxide [Milk of Magnesia] 400 mg/5 mL suspension 30 ml PO DAILY PRN (Reason: Constipation) RF: 0 Stand-Alone Forms: [facility] Discharge Orders: Discharge Order (Routine); Ordered 01/29/19 Ordered By: Jenny Aguilera Admission Data Admit Date/Time: 01/27/19 20:47 Attending Provider: Simeon López Admit Provider: Luke Brown Primary Care Provider: Luke Bentley Other Providers: Luke Brown ; Jenny Aguilera ; Mayank Calderon III Service: Medical Other Interventions: Discharge Summary Assessment (RN) Last Done: 01/29/19 16:13 Pending Studies at Discharge: No DC Date/Time DO NOT enter until pt leaves facility: 01/29/19 17:04 Supervising Physician Co-Signing Physician Notes Attending Attestation and Discharge Note - Pt seen/examined, chart reviewed in detail, discharge care plan d/w YSABEL Aguilera. I agree w/ the alexander components of her discharge documentation. Patient with GBM s/p resection followed by chemo and xrt earlier this spring - treated at [facility]. Presenting with encephalopathy. Found to have UTI. MRI brain findings concerning for residual disease despite surgery/chemo/xrt. Keppra was increased this admission to 750mg BID and she was started on dexamethasone. EEG w/o focal seizure. Mental status gradually improved. Was awake, alert, oriented x 3 by time of discharge (she seems to have personality change, however, from the GBM and the effects of surgery). Discharge exam - gen - thin, NAD scalp - scar left scalp mouth - MMM heart - RRR, s1, s2 lungs - CTA b/l abd - soft NT ext - no edema neuro - strength 5/5 x 4 exts We recommended f/u with her physicians at [facility] in 1-2 weeks rather than waiting until February. MRI brain placed on CD so she could bring those films to that appt. D/c to assisted living as previous. Simeon López MD
--- NOTE | 2019-01-30 11:21 | Coding Query ---
CODING QUERY To promote full compliance with coding requirements relating to patient care, provider participation is requested in all cases of medical biller/coder uncertainty. Please assist us with the question(s) below: Coding Question(s): The H&P documented the patient as having possible "metabolic encephalopathy of uro-sepsis" and the rest of the record states "acute encephalopathy" related to acute infection (UTI). Please specify below. Physician's Response(s): ( ) Metabolic encephalopathy ( X ) Acute encephalopathy ( ) Unable to determine ( ) Other, please specify Thank you Alanis Flowers Principal Diagnosis: "that condition established after study, to be chiefly responsible for occasioning the admission of the patient to the hospital for care." Co-Existing Principal Diagnosis: "when two or more diagnoses equally meet the criteria for principal diagnosis as determined by the circumstances of admission, diagnostic work up, and/or therapy provided, and the Alphabetic Index, Tabular List, or another coding guideline does not provide sequencing direction, any one of the diagnoses may be sequenced first." "When the physician has documented what appears to be a current diagnosis in the body of the record, but has not included the diagnosis in the final diagnostic statement, the physician should be asked whether the diagnosis should be added." (Source Coding [facility] 2 QTR90. p3-4) GABBY
[2019-02-01] MEDS ORDERED: dexAMETHasone 1 MG TAB PO SCH (09:00)
== END 2019-01-29 17:04 | disposition home or self-care (01) | DRG 690 ==
LOC: ED 10:01 → SUATTDRO 20:47 → 4W 20:47
DX: Z91.018 Allergy to other foods; Z98.890 Other specified postprocedural states; B96.20 Unspecified Escherichia coli [E. coli] as the cause of diseases classified elsewhere; C71.2 Malignant neoplasm of temporal lobe; E86.0 Dehydration; G93.40 Encephalopathy, unspecified; E03.9 Hypothyroidism, unspecified; Z92.21 Personal history of antineoplastic chemotherapy; Z79.899 Other long term (current) drug therapy; I10 Essential (primary) hypertension; G40.109 Localization-related (focal) (partial) symptomatic epilepsy and epileptic syndromes with simple partial seizures, not intractable, without status epilepticus; E78.5 Hyperlipidemia, unspecified; R47.01 Aphasia; Z92.3 Personal history of irradiation; Z88.2 Allergy status to sulfonamides; N39.0 Urinary tract infection, site not specified

== ENCOUNTER 2019-03-23 12:54 | Inpatient (IN) ==
[2019-03-23 13:41] LABS: Appearance Urine Cloudy (Clear); Bacteria Urine Automated Negative (Negative); Bilirubin Urine Negative (Negative); Blood Urine Negative (Negative); Cast Urine Automated 0 /lpf (0-5); Color Urine Yellow; Epithelial Cell Urine Auto 0-5 /lpf (0-5); Glucose Urine UA 2+ (Negative); Ketones Urine Negative (Negative); Leukocyte Esterase Urine Negative (Negative); Nitrite Urine Negative (Negative); Protein Urine Negative (Negative); RBC Urine Automated 0-4 /hpf (0-4); Specific Gravity Urine 1.015 (1.000-1.030); Urobilinogen Urine Negative (Negative)
[2019-03-23] MEDS ORDERED: SODIUM CHLORIDE 0.9% 1000ML 500 ML IV ONE (14:07)
[2019-03-23 14:30] LABS: Basophils # (auto) 0.01 K/uL (0-0.2); Basophils % (auto) 0.2 %; Eosinophils # (auto) 0.01 K/uL (0-0.5); Eosinophils % (auto) 0.2 %; Hematocrit (blood only) 37.7 % (37-47); Hemoglobin 13.1 g/dL (12.0-16.0); Immature Granulocytes # (auto) 0.02 K/uL (0.00-0.02); Immature Granulocytes % (auto) 0.4 %; Lymphocytes # (auto) 0.57 K/uL (1.2-3.4); Lymphocytes % (auto) 10.8 %; Mean Corpuscular Hgb Conc 34.7 g/dL (32-36); Mean Corpuscular Volume 86.3 fL (80-100); Monocytes # (auto) 0.53 K/uL (0.11-0.59); Neutrophils # (auto) 4.14 K/uL (1.4-6.5); Neutrophils % (auto) 78.4 %; Platelet Count 172 K/uL (130-400); RDW Coefficient of Variation 13.7 % (11.5-14.5); Red Blood Count 4.37 M/uL (4.2-5.4); White Blood Count 5.28 K/uL (4.8-10.8)
[2019-03-23 14:42] LABS: Partial Thromboplastin Ratio 0.9; Partial Thromboplastin Time 23.1 Seconds (21.0-31.0); Prothrombin Time 10.2 Seconds (9.0-12.0)
[2019-03-23 14:47] LABS: Alanine Aminotransferase 20 U/L (12-78); Albumin Level 3.7 gm/dl (3.4-5.0); Aspartate Aminotransferase 12 U/L (15-37); BUN Creatinine Ratio 18.3 (10-20); Blood Urea Nitrogen 11 mg/dl (7-18); Calcium 9.1 mg/dl (8.5-10.1); Carbon Dioxide 29 mmol/L (21-32); Chloride 100 mmol/L (98-107); Creatinine Clr Calc Pharmacy 71.1 ml/min; Glucose 123 mg/dl (70-99); Magnesium 2.2 mg/dl (1.8-2.4); Potassium 3.8 mmol/L (3.5-5.1); Sodium 135 mmol/L (136-145)
--- NOTE | 2019-03-23 14:50 | CT Scan Report ---
CT SCAN OF THE BRAIN WITHOUT IV CONTRAST CLINICAL HISTORY: Change in mental status. History of brain tumor. COMPARISON STUDY: CT and MRI of the brain dated 01/27/2019. TECHNIQUE: Unenhanced axial CT scan of the brain is performed from the vertex to the skull base. A d ose lowering technique was utilized adhering to the principles of ALARA. CT DOSE: 638.56 mGycm FINDINGS: Brain parenchyma: There is left temporal encephalomalacia consistent with previous mass resection. Ag ain seen is hyperdense material deep to the craniotomy site, with low-attenuation surrounding the res ection cavity. This has not appreciably changed from the 01/27/2019 CT scan. No foci of acute hemorrha ge are clearly seen. There is no midline shift or evidence of acute territorial ischemia by CT criter ia. Whitley-white matter differentiation is preserved. No extra-axial fluid collection is seen. Ventricles, sulci, cisterns: Normal in configuration. Intracranial vasculature: There is atherosclerotic calcification of the cavernous carotid and vertebr al arteries. Calvarium: There is postoperative change from left-sided craniotomy. Sinuses and mastoids: There is mild mucosal thickening within the left ethmoid sinuses. The remaining visualized paranasal sinuses are clear. There is a large left mastoid effusion, and fluid in the lef t middle ear. The right mastoid air cells are well pneumatized. Orbits: The bony orbits are grossly intact. IMPRESSION: 1. There is no evidence of acute hemorrhage, mass effect, or territorial ischemia by CT criteria. 2. Again seen is postoperative change from left-sided craniotomy and temporal lobe mass resection. 3. There is persistent diminished attenuation around the resection cavity and hyperdense material edwin p to the craniotomy site. This has not appreciably changed from 01/27/2019 and likely represents postt reatment change with possible residual tumor. 4. Large left mastoid effusion. Electronically signed by: Shlomo Garcia M.D. 03/23/2019 2:48 PM
--- NOTE | 2019-03-23 14:51 | XRay Report ---
XR chest 1V portable CLINICAL HISTORY: Acute change in mental status COMPARISON STUDY: 01/27/2019 FINDINGS: The heart is borderline enlarged. There is no focal pulmonary consolidation. There is no fa ilure. There are no pleural effusions. There is a nonspecific 8 mm right midlung zone nodule. This is quite dense despite its small size, favoring a postinflammatory density. A six-month follow-up chest x-ray or CT scan should be considered. IMPRESSION: 8 mm right midlung zone nodule. Although nonspecific, the nodule is rather dense despite its small size, favoring a postinflammatory etiology Electronically signed by: Alec Dee M.D. 03/23/2019 2:50 PM
[2019-03-23 14:58] LABS: Albumin Globulin Ratio 1.1 (0.9-2); Alkaline Phosphatase 32 U/L (45-117); Bilirubin,Total 0.5 mg/dl (0.2-1); Globulin 3.3 gm/dl (2.5-4.0); Troponin I < 0.015 ng/ml (0-0.045)
--- NOTE | 2019-03-23 16:04 | History & Physical Report ---
Date of Service March 23, 2019 Assessment & Plan (1) Change in mental status: Patient with reported increased somnolence, episodes of confusion and decreased responsiveness. Work-up thus far with no overt evidence of infectionno leukocytosis, negative UA, chest x-ray without evidence of pneumonia. TSH within normal range. LFTs unremarkable. CT head unchanged from prior. Keppra level pending. -Uncertain etiology of increased somnolence. Possibly secondary to poor sleep. Patient with frequent trips to the bathroom in the evening -Observation to medical floor -Follow lab results, Keppra level -Neurology consultation. Assistance appreciated Present on Admission?: Yes (2) Glioblastoma: Patient follows with oncology at [facility]. -Continue Temodar 200 mg p.o. nightly -Routine follow-up with oncology -Continue Keppra Present on Admission?: Yes (3) Hypothyroidism: Chronic. Stable. TSH within normal range -Continue Synthroid 88 mcg p.o. daily Present on Admission?: Yes (4) Partial seizures with aphasia: No witnessed seizure activity -Continue Keppra 750 mg p.o. twice daily -Follow level, labs a send out -Neurology consult as above. Assistance appreciated Present on Admission?: Yes (5) Hypertension: Blood pressure elevated at present -Continue home medication, atenolol 25 mg p.o. every morning -Consider adding additional agent if blood pressure remains elevated Present on Admission?: Yes (6) Hyperlipidemia: Chronic. -Continue pravastatin LCT-[id number]-[id number], monitor electrolytes and replete as needed, regular diet as tolerated with aspiration precautions ProphylaxisLovenox, continue home Pepcid CodeDNR/DNI per discussion with brother Dispositionobservation to medical floor Family contactJason Granados [phone] History of Present Illness Chief Complaint: Somnolence Primary Care Provider: FER Granados is a 69-year-old female with history of glioblastoma, hypertension, hyperlipidemia presenting with increased somnolence. The patient resides at the [facility]. She has family that visits her regularly, brother and [id number]. Per discussion with them, her baseline functional status is conversive and appropriate at most times with occasional episodes of confusion. Family remarks that they noticed that her mental status declines significantly in the evenings and she becomes quite tired and less responsive. They state that she is often "unable to finish of thought" when she is tired. They state that she takes her medications in the evening and often drinks quite a bit of water with her medicines. She is up multiple times during the night to use the bathroom. She does not nap during the day. Staff at the [facility] comments that the patient has been quite fatigued and that it takes her more time to complete daily tasks such as eating. Patient was doing well last night. At some point during the night she broke a glass in her room and had superficial cuts on her fingers. This morning she was more fatigued and disoriented. She did not eat breakfast. She had a difficult time dressing. Symptoms prompted family to bring her to the ER. During my encounter patient is quite somnolent. She opens eyes to verbal and tactile stimuli but does not answer questions or follow commands consistently. Later in the afternoon she was more alert and sitting at the edge of the bed smiling. Allergies Allergy/AdvReac Type Severity Reaction Status Date / Time Bactrim Allergy Unknown RASH Verified 09/03/17 19:13 sulfamethoxazole Allergy Unknown RASH Verified 03/23/19 13:41 trimethoprim Allergy Unknown RASH Verified 03/23/19 13:41 [place] Allergy Intermediate Rash on Uncoded 03/23/19 13:41 face / hives Home Medications Home Medications Medication Instructions Recorded Confirmed Type levothyroxine 88 mcg PO QAM 10/27/18 03/23/19 History pravastatin 20 mg PO QAM 10/27/18 03/23/19 History atenolol 25 mg tablet 25 mg PO QAM 11/13/18 03/23/19 History famotidine 20 mg tablet 20 mg PO QAM 11/13/18 03/23/19 History calcium carbonate 600 mg(1,500 1 tab PO QAM tab 03/03/19 03/23/19 History mg)-vitamin D3 800 unit chewable tablet clonazepam 0.5 mg tablet 0.25 mg PO HS tab 03/03/19 03/23/19 History levetiracetam 250 mg tablet 750 mg PO Q12H tab 03/03/19 03/23/19 History docusate sodium [Colace] 100 mg PO HS 03/23/19 03/23/19 History ondansetron HCl 8 mg PO HS 03/23/19 03/23/19 History temozolomide [Temodar] 200 mg PO HS 03/23/19 03/23/19 History Past Med/Surg History Medical History OCD (obsessive compulsive disorder) (Chronic) Hypertension (Chronic) Hyperlipidemia (Chronic) Glioblastoma (Acute) Diagnosed 10/28/18 - WHO Grade IV Hypothyroidism (Chronic) History of basal cell cancer (Resolved) 2009 - Removed from right lower eyelid area Surgical History History of mandibular surgery (Acute) 1982 History of craniotomy (Resolved) 10/28/18 @ [facility] [place] Family History Grandfather (Paternal) , Passed in 50s of unknown CA (exposed to lead 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 Mother , Passed age 69 of PR No problems noted. Father , Passed age 84 of poor circulation No problems noted. Brother No problems noted. Brother , Passed as an No problems noted. Sister , Passed as an infant No problems noted. 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 Groceries Required: No Beliefs That Will Affect Care: None marital status: Single Current Living Situation: Personal Care Facility Current Living Situation Comment: [facility] halfway current occupational status: retired current occupation: Retired from [employer] Feels Safe at Home: Yes Safety Concerns: Feels Safe At This Time Smoking Status: Never smoker Hx Alcohol Use: No Hx Substance Use: No Childhood Exposure to Second-Hand Smoke: Yes during the past year weight has: remained stable Dental Care, Regularly: Yes Review of Systems Review of Systems: Unobtainable due to cognitive status Physical Exam Physical Exam: General: patient somnolent, arousable to verbal and tactile stimuli. Answers some questions and follows some commands. No acute distress. Skin: warm, dry, intact, no rashes or lesions HEENT: Status post craniotomy, PERRL, anicteric sclera, conjunctiva without injection, external ear normal to inspection and nontender, nares patent, moist mucus membranes, dentition intact, no oropharyngeal lesions, neck supple, trachea midline, no LAD, no thyromegaly, no JVD Heart: +S1/S2, regular, tachycardic, no m/r/g Lungs: Anterior exam with equal air entry bilaterally, no rales/rhonchi/wheezes Abd: +BS, soft, NT/ND, no masses/organomegaly/ascites Ext: warm, 2+ pulses in UE/LE bilaterally, no clubbing/cyanosis or edema Neuro: Difficult to obtain complete neuro exam, patient moving all extremities, not consistently following command Results & Data Vital Signs (Past 12 Hours) Vital Signs Temp Pulse Resp BP Pulse Ox 03/23/19 15:50 49 L 13 03/23/19 15:40 52 L 16 03/23/19 15:30 51 L 19 97 03/23/19 15:20 51 L 15 03/23/19 15:10 52 L 14 03/23/19 15:00 50 L 15 96 03/23/19 14:58 51 L 19 03/23/19 14:57 54 L 19 178/86 H 98 03/23/19 14:41 52 L 17 03/23/19 14:00 59 L 18 03/23/19 13:30 56 L 19 96 03/23/19 13:10 36.8 C 59 L 16 156/85 H 97 03/23/19 13:09 59 L 16 98 03/23/19 12:59 58 L 13 156/85 H 97 Laboratory Results Lab Results 03/23/19 03/23/19 03/23/19 Range/Units 12:59 13:00 14:15 WBC 5.28 (4.8-10.8) K/uL RBC 4.37 (4.2-5.4) M/uL Hgb 13.1 (12.0-16.0) g/dL Hct 37.7 (37-47) % MCV 86.3 (80-100) fL MCH 30.0 (25-34) pg MCHC 34.7 (32-36) g/dL RDW Std Deviation 43.0 (36.4-46.3) fL RDW Coeff of Russ 13.7 (11.5-14.5) % Plt Count 172 (130-400) K/uL MPV 8.0 (7.4-10.4) fL Immature Gran % (Auto) 0.4 % Neut % (Auto) 78.4 % Lymph % (Auto) 10.8 % Ware % (Auto) 10.0 % Eos % (Auto) 0.2 % Baso % (Auto) 0.2 % Immature Gran # (Auto) 0.02 (0.00-0.02) K/uL Neut # (Auto) 4.14 (1.4-6.5) K/uL Lymph # (Auto) 0.57 L (1.2-3.4) K/uL Ware # (Auto) 0.53 (0.11-0.59) K/uL Eos # (Auto) 0.01 (0-0.5) K/uL Baso # (Auto) 0.01 (0-0.2) K/uL PT (9.0-12.0) Seconds INR (0.9-1.1) APTT (21.0-31.0) Seconds PTT Ratio Sodium (136-145) mmol/L Potassium (3.5-5.1) mmol/L Chloride (98-107) mmol/L Carbon Dioxide (21-32) mmol/L Anion Gap (3-11) BUN (7-18) mg/dl Creatinine (0.6-1.2) mg/dl Est Cr Clr Drug Dosing ml/min Est GFR ( Amer) Est GFR (Non-Af Amer) BUN/Creatinine Ratio (10-20) Glucose (70-99) mg/dl POC Glucose 251 H (70-99) Calcium (8.5-10.1) mg/dl Phosphorus (2.5-4.9) mg/dl Magnesium (1.8-2.4) mg/dl Total Bilirubin (0.2-1) mg/dl AST (15-37) U/L ALT (12-78) U/L Alkaline Phosphatase (45-117) U/L Troponin I (0-0.045) ng/ml Total Protein (6.4-8.2) gm/dl Albumin (3.4-5.0) gm/dl Globulin (2.5-4.0) gm/dl Albumin/Globulin Ratio (0.9-2) TSH (0.300-4.500) uIu/ml Urine Color Yellow Urine Appearance Cloudy A (Clear) Urine pH 8.0 H (4.5-7.5) Ur Specific Sentinel 1.015 (1.000-1.030) Urine Protein Negative (Negative) Urine Glucose (UA) 2+ H (Negative) Urine Ketones Negative (Negative) Urine Blood Negative (Negative) Urine Nitrite Negative (Negative) Urine Bilirubin Negative (Negative) Urine Urobilinogen Negative (Negative) Ur Leukocyte Esterase Negative (Negative) Urine WBC (Auto) 1-5 (0-5) /hpf Urine RBC (Auto) 0-4 (0-4) /hpf U Hyaline Cast (Auto) 0 (0-5) /lpf U Epithel Cells (Auto) 0-5 (0-5) /lpf Urine Bacteria (Auto) Negative (Negative) 03/23/19 03/23/19 03/23/19 Range/Units 14:15 14:15 14:15 WBC (4.8-10.8) K/uL RBC (4.2-5.4) M/uL Hgb (12.0-16.0) g/dL Hct (37-47) % MCV (80-100) fL MCH (25-34) pg MCHC (32-36) g/dL RDW Std Deviation (36.4-46.3) fL RDW Coeff of Russ (11.5-14.5) % Plt Count (130-400) K/uL MPV (7.4-10.4) fL Immature Gran % (Auto) % Neut % (Auto) % Lymph % (Auto) % Ware % (Auto) % Eos % (Auto) % Baso % (Auto) % Immature Gran # (Auto) (0.00-0.02) K/uL Neut # (Auto) (1.4-6.5) K/uL Lymph # (Auto) (1.2-3.4) K/uL Ware # (Auto) (0.11-0.59) K/uL Eos # (Auto) (0-0.5) K/uL Baso # (Auto) (0-0.2) K/uL PT 10.2 (9.0-12.0) Seconds INR 1.0 (0.9-1.1) APTT 23.1 (21.0-31.0) Seconds PTT Ratio 0.9 Sodium 135 L (136-145) mmol/L Potassium 3.8 (3.5-5.1) mmol/L Chloride 100 (98-107) mmol/L Carbon Dioxide 29 (21-32) mmol/L Anion Gap 6.0 (3-11) BUN 11 (7-18) mg/dl Creatinine 0.58 L (0.6-1.2) mg/dl Est Cr Clr Drug Dosing 71.1 ml/min Est GFR ( Amer) 109.0 Est GFR (Non-Af Amer) 94.0 BUN/Creatinine Ratio 18.3 (10-20) Glucose 123 H (70-99) mg/dl POC Glucose (70-99) Calcium 9.1 (8.5-10.1) mg/dl Phosphorus 3.5 (2.5-4.9) mg/dl Magnesium 2.2 (1.8-2.4) mg/dl Total Bilirubin 0.5 (0.2-1) mg/dl AST 12 L (15-37) U/L ALT 20 (12-78) U/L Alkaline Phosphatase 32 L (45-117) U/L Troponin I < 0.015 (0-0.045) ng/ml Total Protein 7.0 (6.4-8.2) gm/dl Albumin 3.7 (3.4-5.0) gm/dl Globulin 3.3 (2.5-4.0) gm/dl Albumin/Globulin Ratio 1.1 (0.9-2) TSH 2.450 (0.300-4.500) uIu/ml Urine Color Urine Appearance (Clear) Urine pH (4.5-7.5) Ur Specific Sentinel (1.000-1.030) Urine Protein (Negative) Urine Glucose (UA) (Negative) Urine Ketones (Negative) Urine Blood (Negative) Urine Nitrite (Negative) Urine Bilirubin (Negative) Urine Urobilinogen (Negative) Ur Leukocyte Esterase (Negative) Urine WBC (Auto) (0-5) /hpf Urine RBC (Auto) (0-4) /hpf U Hyaline Cast (Auto) (0-5) /lpf U Epithel Cells (Auto) (0-5) /lpf Urine Bacteria (Auto) (Negative) Diagnostic Findings CT SCAN OF THE BRAIN WITHOUT IV CONTRAST CLINICAL HISTORY: Change in mental status. History of brain tumor. COMPARISON STUDY: CT and MRI of the brain dated 01/27/2019. TECHNIQUE: Unenhanced axial CT scan of the brain is performed from the vertex to the skull base. A dose lowering technique was utilized adhering to the principles of ALARA. CT DOSE: 638.56 mGycm FINDINGS: Brain parenchyma: There is left temporal encephalomalacia consistent with previous mass resection. Again seen is hyperdense material deep to the craniotomy site, with low-attenuation surrounding the resection cavity. This has not appreciably changed from the 01/27/2019 CT scan. No foci of acute hemorrhage are clearly seen. There is no midline shift or evidence of acute territorial ischemia by CT criteria. Whitley-white matter differentiation is preserved. No extra-axial fluid collection is seen. Ventricles, sulci, cisterns: Normal in configuration. Intracranial vasculature: There is atherosclerotic calcification of the cavernous carotid and vertebral arteries. Calvarium: There is postoperative change from left-sided craniotomy. Sinuses and mastoids: There is mild mucosal thickening within the left ethmoid sinuses. The remaining visualized paranasal sinuses are clear. There is a large left mastoid effusion, and fluid in the left middle ear. The right mastoid air cells are well pneumatized. Orbits: The bony orbits are grossly intact. IMPRESSION: 1. There is no evidence of acute hemorrhage, mass effect, or territorial ischemia by CT criteria. 2. Again seen is postoperative change from left-sided craniotomy and temporal lobe mass resection. 3. There is persistent diminished attenuation around the resection cavity and hyperdense material deep to the craniotomy site. This has not appreciably changed from 01/27/2019 and likely represents posttreatment change with possible residual tumor. 4. Large left mastoid effusion. Electronically signed by: Shlomo Garcia M.D. 03/23/2019 2:48 PM Dictated: 03/23/19 1437 Transcribed: 03/23/19 1437 XR chest 1V portable CLINICAL HISTORY: Acute change in mental status COMPARISON STUDY: 01/27/2019 FINDINGS: The heart is borderline enlarged. There is no focal pulmonary consolidation. There is no failure. There are no pleural effusions. There is a nonspecific 8 mm right midlung zone nodule. This is quite dense despite its small size, favoring a postinflammatory density. A six-month follow-up chest x- ray or CT scan should be considered. IMPRESSION: 8 mm right midlung zone nodule. Although nonspecific, the nodule is rather dense despite its small size, favoring a postinflammatory etiology Electronically signed by: Alec Dee M.D. 03/23/2019 2:50 PM Dictated: 03/23/19 1447 Transcribed: 03/23/19 1447 ECG Additional Comments: The study shows sinus bradycardia at 56 bpm, leftward axis, AL = 164, QRS = 94, QTc = 409 Code Status & VTE Plan Code Status DNR/DNI per discussion with brother VTE Prophylaxis Plan VTE Prophylaxis will be ordered: Yes PG Care Time/CCT Total # of Minutes Spent Total Time Spent with Patient: Total time spent is greater than 50% in coordination of care (as documented) at patient's floor/unit and/or counseling patient: (1) Change in mental status Altered mental status type: unspecified Qualified Code(s): R41.82 - Altered mental status, unspecified (2) Hypothyroidism Hypothyroidism type: unspecified Qualified Code(s): E03.9 - Hypothyroidism, unspecified (3) Hypertension Hypertension type: essential hypertension Qualified Code(s): I10 - Essential (primary) hypertension (4) Hyperlipidemia Hyperlipidemia type: unspecified Qualified Code(s): E78.5 - Hyperlipidemia, unspecified
--- NOTE | 2019-03-23 16:37 | Emergency Department Note ---
Entered by Sravani Burdick acting as a scribe for History of Present Illness General Chief complaint: Altered Mental Status Time Seen by Provider: 03/23/19 14:06 Source: family (brother) and other (nurse) Mode of arrival: EMS Limitations: altered mental status History of Present Illness Provider complaint: Altered mental status Onset (ago): hour(s) (today) Location: head Radiation: non-radiation Severity: similar to prior episodes (UTI) Pain Consistency: + other (worsening) Quality: + other (altered mental status) Associated symptoms: + confusion and + other (Additional symptoms: trouble getting out of bed, trouble following commands, inability to converse) The patient is a 69 year old female with a history of hypertension, hyperlipidemia, hypotension, a brain tumor resection in October 2018, a UTI, and OCD who presents to the Emergency Room with complaints of worsening altered mental status starting today. Per nurse, the patient lives at [facility] and was found holding broken glass at 0000 today. She states that the patient had trouble getting out of bed and following commands, and the patient's brother adds that the patient is confused to the point where she cannot carry out a conversation. He notes that he visited the patient and was able converse when he visited her last night. He recalls that the patient exhibited the same symptoms when she previously came to the ED for a UTI. Per brother, the patient takes Keppra to prevent seizures although she has never had one, and she just finished her second phase of chemotherapy last week. He indicates that the patient's code status is unclear. HPI limited secondary to altered mental status. History obtained from nurse and brother. Home Medications Home Medications Medication Instructions Recorded Confirmed Type levothyroxine 88 mcg PO QAM 10/27/18 03/23/19 History pravastatin 20 mg PO QAM 10/27/18 03/23/19 History atenolol 25 mg tablet 25 mg PO QAM 11/13/18 03/23/19 History famotidine 20 mg tablet 20 mg PO QAM 11/13/18 03/23/19 History calcium carbonate 600 mg(1,500 1 tab PO QAM tab 03/03/19 03/23/19 History mg)-vitamin D3 800 unit chewable tablet clonazepam 0.5 mg tablet 0.25 mg PO HS tab 03/03/19 03/23/19 History levetiracetam 250 mg tablet 750 mg PO Q12H tab 03/03/19 03/23/19 History docusate sodium [Colace] 100 mg PO HS 03/23/19 03/23/19 History ondansetron HCl 8 mg PO HS 03/23/19 03/23/19 History temozolomide [Temodar] 200 mg PO HS 03/23/19 03/23/19 History Allergies Allergy/AdvReac Type Severity Reaction Status Date / Time Bactrim Allergy Unknown RASH Verified 09/03/17 19:13 sulfamethoxazole Allergy Unknown RASH Verified 03/23/19 13:41 trimethoprim Allergy Unknown RASH Verified 03/23/19 13:41 [place] Allergy Intermediate Rash on Uncoded 03/23/19 13:41 face / hives Past Med/Surg History Medical History OCD (obsessive compulsive disorder) (Chronic) Hypertension (Chronic) Hyperlipidemia (Chronic) Glioblastoma (Acute) Diagnosed 10/28/18 - WHO Grade IV Hypothyroidism (Chronic) History of basal cell cancer (Resolved) 2009 - Removed from right lower eyelid area Surgical History History of mandibular surgery (Acute) 1981 History of craniotomy (Resolved) 10/28/18 [place] [facility] [place] Family History Grandfather (Paternal) , Passed in 50s of unknown [place] (exposed to lead paint 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 Mother , Passed age 69 of [place] No problems noted. Father , Passed age 84 of poor circulation No problems noted. Brother No problems noted. Brother , Passed as an infant No problems noted. Sister , Passed as an No problems noted. Other Has no children Social History Preferred Language: Albanian Communication Ability: Impaired Communication Ability Comment: confused Visual Impairment: Limited Hearing Ability: Normal Clinical Trials Manager Required: No Beliefs That Will Affect Care: None marital status: Single Current Living Situation: Personal Care Facility Current Living Situation Comment: [facility] skilled [facility] current occupational status: retired current occupation: Retired from [employer] Feels Safe at Home: Yes Safety Concerns: Feels Safe At This Time Smoking Status: Never smoker Hx Alcohol Use: No Hx Substance Use: No Childhood Exposure to Second-Hand Smoke: Yes during the past year weight has: remained stable Dental Care, Regularly: Yes Review of Systems Other (Limited secondary to altered mental status) Physical Exam Vital Signs Vital Signs - 24 hr 03/23/19 12:59 03/23/19 13:09 03/23/19 13:10 Temperature 36.8 C Temperature Source Oral Sepsis Recent Fever Within 48 Hours No Sepsis New/Unexplained Change in Mental Status No Sepsis Action Taken by Nursing No Action Required Pulse Rate 58 L 59 L 59 L Pulse Rate from SpO2 Sensor 57 L 59 L Pulse Rhythm Regular Pulse Strength Normal Respiratory Rate 13 16 16 Respiratory Effort / Characteristics Non-Labored Spontaneous Respiratory Depth Normal Respiratory Pattern Regular Blood Pressure 156/85 H 156/85 H Blood Pressure Mean 108 108 Blood Pressure Position Lying Pulse Oximetry 97 98 97 Oxygen Delivery Method Room Air Room Air Room Air 03/23/19 13:30 03/23/19 14:00 03/23/19 14:41 Temperature Temperature Source Sepsis Recent Fever Within 48 Hours Sepsis New/Unexplained Change in Mental Status Sepsis Action Taken by Nursing Pulse Rate 56 L 59 L 52 L Pulse Rate from SpO2 Sensor 56 L Pulse Rhythm Pulse Strength Respiratory Rate 19 18 17 Respiratory Effort / Characteristics Respiratory Depth Respiratory Pattern Blood Pressure Blood Pressure Mean Blood Pressure Position Pulse Oximetry 96 Oxygen Delivery Method Room Air 03/23/19 14:57 03/23/19 14:58 03/23/19 15:00 Temperature Temperature Source Sepsis Recent Fever Within 48 Hours Sepsis New/Unexplained Change in Mental Status Sepsis Action Taken by Nursing Pulse Rate 54 L 51 L 50 L Pulse Rate from SpO2 Sensor Pulse Rhythm Pulse Strength Respiratory Rate 19 19 15 Respiratory Effort / Characteristics Respiratory Depth Respiratory Pattern Blood Pressure 178/86 H Blood Pressure Mean 116 Blood Pressure Position Pulse Oximetry 98 96 Oxygen Delivery Method Room Air Room Air 03/23/19 15:10 03/23/19 15:20 03/23/19 15:30 Temperature Temperature Source Sepsis Recent Fever Within 48 Hours Sepsis New/Unexplained Change in Mental Status Sepsis Action Taken by Nursing Pulse Rate 52 L 51 L 51 L Pulse Rate from SpO2 Sensor Pulse Rhythm Pulse Strength Respiratory Rate 14 15 19 Respiratory Effort / Characteristics Respiratory Depth Respiratory Pattern Blood Pressure Blood Pressure Mean Blood Pressure Position Pulse Oximetry 97 Oxygen Delivery Method Room Air 03/23/19 15:40 03/23/19 15:50 Temperature Temperature Source Sepsis Recent Fever Within 48 Hours Sepsis New/Unexplained Change in Mental Status Sepsis Action Taken by Nursing Pulse Rate 52 L 49 L Pulse Rate from SpO2 Sensor Pulse Rhythm Pulse Strength Respiratory Rate 16 13 Respiratory Effort / Characteristics Respiratory Depth Respiratory Pattern Blood Pressure Blood Pressure Mean Blood Pressure Position Pulse Oximetry Oxygen Delivery Method GENERAL: Patient is in no acute distress. HEENT: No acute trauma, normocephalic atraumatic, mucous membranes moist, no nasal congestion, no scleral icterus. Healing surgical incision along the left scalp noted. NECK: No stridor, no adenopathy, no meningismus, trachea is midline. LUNGS: Clear to auscultation bilaterally, no wheeze, no rhonchi, breath sounds equal. HEART: Without murmurs gallops or rubs, regular rate and rhythm. ABDOMEN: Soft, nontender, bowel sounds positive, no hernias, no peritonitis. EXTREMITIES: No cyanosis or edema, full range of motion of all the joints without pain or difficulty, no signs for acute trauma. NEUROLOGIC: Awake, moves all extremities. Currently nonverbal and quite confused. Cannot follow commands. SKIN: No rash, no jaundice, no diaphoresis. Course 1411: The patient was evaluated in room B10, and a complete history and physical examination were performed. 1508: I checked on the patient and updated her and her family on her results. They are agreeable to the treatment plan. 1511: I reviewed the patient's case with Dr. Vimal Duarte. Dr. Celis will evaluate the patient for further management. Consultations Consultation #1: I reviewed the patient's case with Dr. Vimal Duarte. Dr. Celis will evaluate the patient for further management. Time: 15:11 Administered Medications Docusate Sodium (Colace) 100 mg PO HS NIRU Stop: 04/22/19 20:59 Last Admin: 03/23/19 20:20 Dose: Not Given Documented by: [id number] Enoxaparin Sodium (Lovenox) 40 mg SQ Q24H NIRU Stop: 04/22/19 17:59 Last Admin: 03/23/19 20:26 Dose: Not Given Documented by: [id number] Sodium Chloride (Nss 1000ml) 1,000 mls @ 75 mls/hr IV .[id number] NIRU Stop: 04/22/19 17:28 Last Admin: 03/23/19 18:08 Dose: 75 mls/hr Documented by: [id number] Levetiracetam (Keppra) 750 mg PO Q12H NIRU Stop: 04/22/19 19:29 Last Admin: 03/23/19 20:20 Dose: Not Given Documented by: [id number] Temozolomide (Temodar) 200 mg PO HS NIRU Stop: 04/22/19 20:59 Last Admin: 03/23/19 20:20 Dose: Not Given Documented by: [id number] Discontinued Medications Sodium Chloride (Nss 1000ml) 500 mls @ 999 mls/hr IV .Q31M ONE Stop: 03/23/19 14:37 Last Infusion: 03/23/19 14:44 Dose: 0 mls/hr Documented by: [id number] Admin: 03/23/19 14:13 Dose: 999 mls/hr Documented by: [id number] Medical Decision Making Differential Diagnosis Differential diagnosis includes: UTI, intracranial bleeding, intracranial mass, medication reaction, anemia, seizure, electrolyte imbalance. Medical Records Attestation: I reviewed the patient's medical records. Home Medications Current Medication List: was personally reviewed by me Laboratory Data Attestation: I reviewed the patient's lab results. Result diagrams: 03/23/19 14:15 03/23/19 14:15 Lab Results 03/23/19 03/23/19 03/23/19 Range/Units 12:59 13:00 14:15 WBC 5.28 (4.8-10.8) K/uL RBC 4.37 (4.2-5.4) M/uL Hgb 13.1 (12.0-16.0) g/dL Hct 37.7 (37-47) % MCV 86.3 (80-100) fL MCH 30.0 (25-34) pg MCHC 34.7 (32-36) g/dL RDW Std Deviation 43.0 (36.4-46.3) fL RDW Coeff of Russ 13.7 (11.5-14.5) % Plt Count 172 (130-400) K/uL MPV 8.0 (7.4-10.4) fL Immature Gran % (Auto) 0.4 % Neut % (Auto) 78.4 % Lymph % (Auto) 10.8 % [place] % (Auto) 10.0 % Eos % (Auto) 0.2 % Baso % (Auto) 0.2 % Immature Gran # (Auto) 0.02 (0.00-0.02) K/uL Neut # (Auto) 4.14 (1.4-6.5) K/uL Lymph # (Auto) 0.57 L (1.2-3.4) K/uL [place] # (Auto) 0.53 (0.11-0.59) K/uL Eos # (Auto) 0.01 (0-0.5) K/uL Baso # (Auto) 0.01 (0-0.2) K/uL PT (9.0-12.0) Seconds INR (0.9-1.1) APTT (21.0-31.0) Seconds PTT Ratio Sodium (136-145) mmol/L Potassium (3.5-5.1) mmol/L Chloride (98-107) mmol/L Carbon Dioxide (21-32) mmol/L Anion Gap (3-11) BUN (7-18) mg/dl Creatinine (0.6-1.2) mg/dl Est Cr Clr Drug Dosing ml/min Est GFR ( Amer) Est GFR (Non-Af Amer) BUN/Creatinine Ratio (10-20) Glucose (70-99) mg/dl POC Glucose 251 H (70-99) Calcium (8.5-10.1) mg/dl Phosphorus (2.5-4.9) mg/dl Magnesium (1.8-2.4) mg/dl Total Bilirubin (0.2-1) mg/dl AST (15-37) U/L ALT (12-78) U/L Alkaline Phosphatase (45-117) U/L Troponin I (0-0.045) ng/ml Total Protein (6.4-8.2) gm/dl Albumin (3.4-5.0) gm/dl Globulin (2.5-4.0) gm/dl Albumin/Globulin Ratio (0.9-2) TSH (0.300-4.500) uIu/ml Urine Color Yellow Urine Appearance Cloudy A (Clear) Urine pH 8.0 H (4.5-7.5) Ur Specific [place] 1.015 (1.000-1.030) Urine Protein Negative (Negative) Urine Glucose (UA) 2+ H (Negative) Urine Ketones Negative (Negative) Urine Blood Negative (Negative) Urine Nitrite Negative (Negative) Urine Bilirubin Negative (Negative) Urine Urobilinogen Negative (Negative) Ur Leukocyte Esterase Negative (Negative) Urine WBC (Auto) 1-5 (0-5) /hpf Urine RBC (Auto) 0-4 (0-4) /hpf U Hyaline Cast (Auto) 0 (0-5) /lpf U Epithel Cells (Auto) 0-5 (0-5) /lpf Urine Bacteria (Auto) Negative (Negative) 03/23/19 03/23/19 03/23/19 Range/Units 14:15 14:15 14:15 WBC (4.8-10.8) K/uL RBC (4.2-5.4) M/uL Hgb (12.0-16.0) g/dL Hct (37-47) % MCV (80-100) fL MCH (25-34) pg MCHC (32-36) g/dL RDW Std Deviation (36.4-46.3) fL RDW Coeff of Russ (11.5-14.5) % Plt Count (130-400) K/uL MPV (7.4-10.4) fL Immature Gran % (Auto) % Neut % (Auto) % Lymph % (Auto) % [place] % (Auto) % Eos % (Auto) % Baso % (Auto) % Immature Gran # (Auto) (0.00-0.02) K/uL Neut # (Auto) (1.4-6.5) K/uL Lymph # (Auto) (1.2-3.4) K/uL [place] # (Auto) (0.11-0.59) K/uL Eos # (Auto) (0-0.5) K/uL Baso # (Auto) (0-0.2) K/uL PT 10.2 (9.0-12.0) Seconds INR 1.0 (0.9-1.1) APTT 23.1 (21.0-31.0) Seconds PTT Ratio 0.9 Sodium 135 L (136-145) mmol/L Potassium 3.8 (3.5-5.1) mmol/L Chloride 100 (98-107) mmol/L Carbon Dioxide 29 (21-32) mmol/L Anion Gap 6.0 (3-11) BUN 11 (7-18) mg/dl Creatinine 0.58 L (0.6-1.2) mg/dl Est Cr Clr Drug Dosing 71.1 ml/min Est GFR ( Amer) 109.0 Est GFR (Non-Af Amer) 94.0 BUN/Creatinine Ratio 18.3 (10-20) Glucose 123 H (70-99) mg/dl POC Glucose (70-99) Calcium 9.1 (8.5-10.1) mg/dl Phosphorus 3.5 (2.5-4.9) mg/dl Magnesium 2.2 (1.8-2.4) mg/dl Total Bilirubin 0.5 (0.2-1) mg/dl AST 12 L (15-37) U/L ALT 20 (12-78) U/L Alkaline Phosphatase 32 L (45-117) U/L Troponin I < 0.015 (0-0.045) ng/ml Total Protein 7.0 (6.4-8.2) gm/dl Albumin 3.7 (3.4-5.0) gm/dl Globulin 3.3 (2.5-4.0) gm/dl Albumin/Globulin Ratio 1.1 (0.9-2) TSH 2.450 (0.300-4.500) uIu/ml Urine Color Urine Appearance (Clear) Urine pH (4.5-7.5) Ur Specific [place] (1.000-1.030) Urine Protein (Negative) Urine Glucose (UA) (Negative) Urine Ketones (Negative) Urine Blood (Negative) Urine Nitrite (Negative) Urine Bilirubin (Negative) Urine Urobilinogen (Negative) Ur Leukocyte Esterase (Negative) Urine WBC (Auto) (0-5) /hpf Urine RBC (Auto) (0-4) /hpf U Hyaline Cast (Auto) (0-5) /lpf U Epithel Cells (Auto) (0-5) /lpf Urine Bacteria (Auto) (Negative) Imaging Data Radiologist's Impression: Radiology results as stated below per my review and the radiologist's interpretation: XR chest 1V portable CLINICAL HISTORY: Acute change in mental status COMPARISON STUDY: 01/27/2019 FINDINGS: The heart is borderline enlarged. There is no focal pulmonary consol idation. There is no failure. There are no pleural effusions. There is a nonspecific 8 mm right midlung zone nodule. This is quite dense despite its small size, favoring a postinflammatory density. A six-month follow-up chest x- ray or CT scan should be considered. IMPRESSION: 8 mm right midlung zone nodule. Although nonspecific, the nodule is rather dense despite its small size, favoring a postinflammatory etiology Electronically signed by: Alec Dee M.D. 03/23/2019 2:[address] SCAN OF THE BRAIN WITHOUT IV CONTRAST CLINICAL HISTORY: Change in mental status. History of brain tumor. COMPARISON STUDY: CT and MRI of the brain dated 01/27/2019. TECHNIQUE: Unenhanced axial CT scan of the brain is performed from the vertex to the skull base. A dose lowering technique was utilized adhering to the principles of ALARA. CT DOSE: 638.56 mGycm FINDINGS: Brain parenchyma: There is left temporal encephalomalacia consistent with previous mass resection. Again seen is hyperdense material deep to the craniotomy site, with low-attenuation surrounding the resection cavity. This has not appreciably changed from the 01/27/2019 CT scan. No foci of acute hemorrhage are clearly seen. There is no midline shift or evidence of acute territorial ischemia by CT criteria. Whitley-white matter differentiation is preserved. No extra-axial fluid collection is seen. Ventricles, sulci, cisterns: Normal in configuration. Intracranial vasculature: There is atherosclerotic calcification of the cavernous carotid and vertebral arteries. Calvarium: There is postoperative change from left-sided craniotomy. Sinuses and mastoids: There is mild mucosal thickening within the left ethmoid sinuses. The remaining visualized paranasal sinuses are clear. There is a large left mastoid effusion, and fluid in the left middle ear. The right mastoid air cells are well pneumatized. Orbits: The bony orbits are grossly intact. IMPRESSION: 1. There is no evidence of acute hemorrhage, mass effect, or territorial ischemia by CT criteria. 2. Again seen is postoperative change from left-sided craniotomy and temporal lobe mass resection. 3. There is persistent diminished attenuation around the resection cavity and hyperdense material deep to the craniotomy site. This has not appreciably changed from 01/27/2019 and likely represents posttreatment change with possible residual tumor. 4. Large left mastoid effusion. Electronically signed by: Shlomo Garcia M.D. 03/23/2019 2:48 PM ECG Data Attestation: I personally reviewed and interpreted this ECG as follows: Indication: altered mental status Rate (beats per minute): 56 Rhythm: sinus bradycardia Findings: + other (artifact present, QTC is 409) and + nonspecific-ST abn; no ST elevation and no acute ischemic change Blood Pressure Blood Pressure Findings: Elevated blood pressure Blood Pressure Disposition: further management by hospitalist ANALIA Narrative There is no leukocytosis or concerning anemia. No coagulopathy. No significant electrolyte abnormality or kidney failure. No liver enzyme elevation. The patient appeared to be in a euthyroid state. Urinalysis did not show evidence for infection. Keppra level is pending. EKG showed a sinus rhythm, no acute ischemia. Cardiac enzyme testing x1 is not consistent with acute cardiac injury. Chest film shows a potential nodule, no true pneumonia. Brain CT shows chronic findings from her surgery, no acute change, no acute bleeding. On exam, the patient was not febrile or toxic, she was moving all extremities, she was quite confused. The patient received IV saline, 500 cc. She has been resting. At this point, the cause for the change in mental status is unclear. She has b een different with her mentation and behavior now for about 24 hours. I do think further work-up in the hospital is warranted. I spoke to the patient as well as her brother. I talked with the rehabilitation caseworker. The on-call hospitalist was consulted. Impression & Plan Change in mental status, History of malignant neoplasm of brain Discharge Plan Visit Data *Final* Discharge Date/Time: 03/23/19 16:42 Chief Complaint: Altered Mental Status ED Provider: Shlomo Powers Discharge Problem: Change in mental status, History of malignant neoplasm of brain Patient Disposition: Admitted As Inpatient Discharge Instructions Interventions: ED Discharge Assessment Last Done: 03/23/19 16:42 Discharge Problem: Change in mental status Qualifiers: Altered mental status type: unspecified Qualified Code(s): R41.82 - Altered mental status, unspecified The adrianoibe's documentation has been prepared under my direction and personally reviewed by me in its entirety. I confirm that the note above accurately reflects all work, treatment, procedures, and medical decision making performed by me.
[2019-03-23] MEDS ORDERED: CARBOHYDRATES FOR HYPOGLYCEMIA PO PRN (17:29)
[2019-03-23] MEDS ORDERED: GLUCOSE 40% GEL 15 GM TUBE PO PRN (17:29)
[2019-03-23] MEDS ORDERED: DEXTROSE 50% 50 ML SYRINGE IV PRN (17:29)
[2019-03-23] MEDS ORDERED: GLUCAGON FOR INJ 1 MG VIAL SQ PRN (17:29)
[2019-03-23] MEDS ORDERED: GLUCOSE 10 TABS/TUBE PO PRN (17:29)
[2019-03-23] MEDS ORDERED: ONDANSETRON INJ 2 MG/ML 2 ML VIAL IV PRN (17:29)
[2019-03-23] MEDS ORDERED: ACETAMINOPHEN 325 MG TAB PO PRN (17:29)
[2019-03-23] MEDS: SODIUM CHLORIDE 0.9% 1000ML 1,000 ML IV SCH (18:08)
[2019-03-23] MEDS ORDERED: levETIRAcetam 250 MG TAB PO SCH (19:30)
[2019-03-23] MEDS: DOCUSATE SODIUM 100 MG CAP PO SCH (20:20)
[2019-03-23] MEDS: TEMOZOLOMIDE 100 MG CAPSULE PO SCH (20:20)
[2019-03-23] MEDS: ENOXAPARIN INJ 40 MG/0.4 ML SYR SQ SCH (20:26)
[2019-03-23] MEDS ORDERED: LORazepam 1 MG/2 ML VIAL IV PRN (23:13)
[2019-03-23] MEDS ORDERED: HydrALAZINE HCL 20 MG/ML VIAL IV PRN (23:14)
[2019-03-23] MEDS: levETIRAcetam 750 MG in DEXTROSE 5% 100 ML IV SCH (23:51)
[2019-03-24] MEDS: LEVOTHYROXINE SODIUM 88 MCG TABLET PO SCH (06:33)
[2019-03-24 07:25] LABS: Basophils # (auto) 0.01 K/uL (0-0.2); Basophils % (auto) 0.2 %; Eosinophils # (auto) 0.06 K/uL (0-0.5); Eosinophils % (auto) 1.4 %; Hematocrit (blood only) 38.2 % (37-47); Hemoglobin 13.2 g/dL (12.0-16.0); Immature Granulocytes # (auto) 0.01 K/uL (0.00-0.02); Immature Granulocytes % (auto) 0.2 %; Lymphocytes # (auto) 0.71 K/uL (1.2-3.4); Lymphocytes % (auto) 16.8 %; Mean Corpuscular Hemoglobin 30.3 pg (25-34); Mean Corpuscular Hgb Conc 34.6 g/dL (32-36); Mean Corpuscular Volume 87.8 fL (80-100); Monocytes # (auto) 0.67 K/uL (0.11-0.59); Monocytes % (auto) 15.8 %; Neutrophils # (auto) 2.77 K/uL (1.4-6.5); Neutrophils % (auto) 65.6 %; Platelet Count 180 K/uL (130-400); RDW Coefficient of Variation 13.9 % (11.5-14.5); RDW Standard Deviation 44.1 fL (36.4-46.3); Red Blood Count 4.35 M/uL (4.2-5.4); White Blood Count 4.23 K/uL (4.8-10.8)
[2019-03-24 07:51] LABS: BUN Creatinine Ratio 19.4 (10-20); Calcium 8.7 mg/dl (8.5-10.1); Creatinine Clr Calc Pharmacy 74.5 ml/min; Est GFR (African American) 110.3; Est GFR (Non-African American) 95.1; Potassium 3.6 mmol/L (3.5-5.1)
[2019-03-24] MEDS: levETIRAcetam 750 MG in DEXTROSE 5% 100 ML IV SCH (08:00)
[2019-03-24] MEDS: FAMOTIDINE 20 MG TAB PO SCH (08:01)
[2019-03-24] MEDS: PRAVASTATIN SOD 20 MG TAB PO SCH (08:01)
[2019-03-24] MEDS: ATENOLOL 25 MG TABLET PO SCH (08:02)
[2019-03-24] MEDS: SODIUM CHLORIDE 0.9% 1000ML 1,000 ML IV SCH ×2 (08:07→22:22)
--- NOTE | 2019-03-24 10:45 | Neurology Consultation ---
Date of Consultation March 24, 2019 Assessment & Plan (1) Aphasia: This patient appears to have a persistent receptive type aphasia. There are several likely contributing factors including her history of left frontotemporal glioblastoma resection, suggestion of tumor recurrence on previ ous imaging, and possible subclinical seizure activity. Brain XRT and Temodar may be additional confounding factors. Although her EEG this morning does not suggest seizure activity, I would recommend empirically increasing her dosage of levetiracetam to 1000 mg twice daily. I would also recommend restarting her dexamethasone 4 mg/day for the next 5 days and then reduce the dosage to 2 mg/day thereafter. These recommendations are similar to what was done for the patient this past January. I would also recommend obtaining an up-to-date brain MRI with and without contrast to reassess for tumor progression or possibly interval development of an acute infarct. This patient's care will need to be further coordinated with her oncologist at [facility]. We do not have neurosurgical services at [facility] and additional surgical care, if necessary, would need to be appropriately coordinated as well. Present on Admission?: Yes History of Present Illness Reason for Consultation: Change in mental status, glioblastoma Requesting Physician: Sia Celis DO Attending Physician: Addison Jones History of Present Illness The patient is a 69-year-old female with a chief complaint of alteration in mental status that was noted yesterday by nursing staff at the [facility] [place]. She has been exhibiting persistent confusion with inability to converse properly and apparent poor language comprehension. Past medical history notable for a left frontotemporal lobe glioblastoma that was diagnosed and resected this past October (10/28/2018) at [facility] (Dr. Washington, neuro oncologist). She has also undergone radiation treatments (completed 01/13/2019) and is receiving Temodar. The patient is an unreliable historian due to poor language comprehension. In reading through the medical record looks like the patient has had a tendency for somnolence and confusion for quite some time. She had a pre sentation to [facility] this past January for alteration in mental status and aphasia. Her dosage of Keppra was increased at that time and she was given a short course of dexamethasone as well. An EEG at that time revealed focal slowing but was negative for epileptiform abnormalities. She does not appear to have a diagnosis of epilepsy or seizure disorder and there is no indication that she has had any recent obvious clinical seizure activity. Allergies Allergy/AdvReac Type Severity Reaction Status Date / Time Bactrim Allergy Unknown RASH Verified 09/03/17 19:13 sulfamethoxazole Allergy Unknown RASH Verified 03/23/19 13:41 trimethoprim Allergy Unknown RASH Verified 03/23/19 13:41 [place] Allergy Intermediate Rash on Uncoded 03/23/19 13:41 face / hives Home Medications Home Medications Medication Instructions Recorded Confirmed Type levothyroxine 88 mcg PO QAM 10/27/18 03/23/19 History pravastatin 20 mg PO QAM 10/27/18 03/23/19 History atenolol 25 mg tablet 25 mg PO QAM 11/13/18 03/23/19 History famotidine 20 mg tablet 20 mg PO QAM 11/13/18 03/23/19 History calcium carbonate 600 mg(1,500 1 tab PO QAM tab 03/03/19 03/23/19 History mg)-vitamin D3 800 unit chewable tablet clonazepam 0.5 mg tablet 0.25 mg PO HS tab 03/03/19 03/23/19 History levetiracetam 250 mg tablet 750 mg PO Q12H tab 03/03/19 03/23/19 History docusate sodium [Colace] 100 mg PO HS 03/23/19 03/23/19 History ondansetron HCl 8 mg PO HS 03/23/19 03/23/19 History temozolomide [Temodar] 200 mg PO HS 03/23/19 03/23/19 History Patient History Medical History OCD (obsessive compulsive disorder) (Chronic) Hypertension (Chronic) Hyperlipidemia (Chronic) Glioblastoma (Acute) Diagnosed 10/28/18 - WHO Grade IV Hypothyroidism (Chronic) History of basal cell cancer (Resolved) 2009 - Removed from right lower eyelid area Surgical History History of mandibular surgery (Acute) 1981 [place] [facility] [place] History Grandfather (Paternal) , Passed in 50s of unknown [place] (exposed to lead paint as prof painter plate) No problems noted. Mother , Passed age 69 of [place] No problems noted. Father , Passed age 84 of poor circulation No problems noted. Brother No problems noted. Brother , Passed as an No problems noted. Sister , Passed as an infant No problems noted. 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: No Beliefs That Will Affect Care: None marital status: Single Current Living Situation: Personal Care Facility Current Living Situation Comment: [facility] current occupational status: retired current occupation: Retired from [employer] Feels Safe at Home: Yes Safety Concerns: Feels Safe At This Time Smoking Status: Never smoker Hx Alcohol Use: No Hx Substance Use: No Childhood Exposure to Second-Hand Smoke: Yes during the past year weight has: remained stable Dental Care, Regularly: Yes Review of Systems 2 Review of Systems: A review of systems cannot be obtained due to extremely poor language comprehension. Physical Exam Physical Exam: The patient is a well-developed, well-nourished elderly female. She has a left frontotemporal craniotomy scar. She is alert. She does not seem to be oriented to person place or time although her extremely poor language comprehension makes full mental status testing difficult. Memory cannot be evaluated. She is fairly attentive. Concentration seems to be impaired. Patient is unable to name objects or repeat phrases. Her speech does seem fluent although does not make much sense. She makes frequent word substitutions and paraphasic errors as well. Comprehension of vocabulary seems to be very poor. Fund of knowledge cannot be fully assessed. Visual connelly full to threat. Pupils equal round reactive to light and accommodation. Eye movements normal. There is no gaze preference or nystagmus. Facial sensation intact. There is no facial droop or weakness. Hearing intact. Palate elevates to midline. Shoulder shrug intact. Tongue protrudes to midline. Sensation grossly intact for all 4 limbs although assessment limited due to poor patient cooperation. Deep tendon reflexes are intact and symmetrical for the arms and legs. Right plantar response upgoing left plantar response downgoing. Patient does not cooperate for testing of coordination, dysmetria, or dysdiadochokinesia. Ophthalmoscopic examination reveals normal-appearing optic disks and posterior segments. No papilledema or hemorrhages. Carotid pulses normal bilaterally, no bruits to auscultation. Gait and station cannot be tested due to safety concerns. Patient exhibits normal muscle strength and tone for all 4 limbs proximally and distally although evaluation is somewhat limited due to poor patient cooperation. Muscle tone normal throughout. No atrophy. No abnormal movements observed. Results & Data Vital Signs (Past 12 Hours) Vital Signs Temp Pulse Resp BP Pulse Ox 03/24/19 07:30 36.5 C 51 L 18 168/90 H 98 03/24/19 00:15 36.8 C 59 L 20 179/72 H 97 Laboratory Results WBC 4.23, hemoglobin 13.2, hematocrit 38.2, platelet count 180, sodium 138, potassium 3.6, BUN 11, creatinine 0.56, glucose 88, calcium 8.7, vitamin B12 level 573, TSH 2.450, urinalysis unremarkable, a levetiracetam level from January 29, 2019 was 16.5, Diagnostic Findings A CT of the head completed yesterday was negative for hemorrhage or acute infarct. There are changes consistent with this patient's history of left-sided craniotomy and temporal lobe mass resection. There is diminished attenuation around the resection cavity and hyperdense material deep to the craniotomy site, not significantly changed compared with the previous study done January 27, 2019 and likely consistent with posttreatment change and possible residual tumor. I reviewed the images as well as the radiologist interpretation of this test. A brain MRI completed at [facility] on March 03, 2019 revealed increased nodular enhancement along the postsurgical margins in the left temporal lobe potentially consistent with areas of tumor recurrence. There is a new nodular parenchymal enhancing lesion in the left posterior temporal lobe consistent with either radiation necrosis versus tumor recurrence. An EEG completed January 27, [address] [facility] revealed focal left hemispheric theta slowing. No epileptiform abnormalities observed. An EEG completed this morning, March 24, 2019, reveals 2.5 to 3 Hz left frontotemporal slowing superimposed on a background of mixed alpha and theta frequencies. No epileptiform discharges observed. PG Care Time/CCT Total # of Minutes Spent Total Time Spent with Patient: Total time spent is greater than 50% in coordination of care (as documented) at patient's floor/unit and/or counseling patient:
--- NOTE | 2019-03-24 10:50 | Electroencephalogram ---
EEG Procedure Note Date of Service March 24, 2019 Start / End Times Start Time: 9:53 AM End Time: 10:13 AM Referring Physician Chi Joyce MD History Left frontotemporal lobe glioblastoma resection, altered mental status, aphasia, evaluate for possible seizures Home Medication List Home Medications Medication Instructions Recorded Confirmed Type levothyroxine 88 mcg PO QAM 10/27/18 03/23/19 History pravastatin 20 mg PO QAM 10/27/18 03/23/19 History atenolol 25 mg tablet 25 mg PO QAM 11/13/18 03/23/19 History famotidine 20 mg tablet 20 mg PO QAM 11/13/18 03/23/19 History calcium carbonate 600 mg(1,500 1 tab PO QAM tab 03/03/19 03/23/19 History mg)-vitamin D3 800 unit chewable tablet clonazepam 0.5 mg tablet 0.25 mg PO HS tab 03/03/19 03/23/19 History levetiracetam 250 mg tablet 750 mg PO Q12H tab 03/03/19 03/23/19 History docusate sodium [Colace] 100 mg PO HS 03/23/19 03/23/19 History ondansetron HCl 8 mg PO HS 03/23/19 03/23/19 History temozolomide [Temodar] 200 mg PO HS 03/23/19 03/23/19 History Inpatient Medication List Atenolol (Tenormin) 25 mg PO QAM [facility] Stop: 04/23/19 08:59 Last Admin: 03/24/19 08:02 Dose: Not Given Documented by: [id number] Docusate Sodium (Colace) 100 mg PO [facility] Stop: 04/22/19 20:59 Last Admin: 03/23/19 20:20 Dose: Not Given Documented by: [id number] Enoxaparin Sodium (Lovenox) 40 mg SQ Q24H [facility] Stop: 04/22/19 17:59 Last Admin: 03/23/19 20:26 Dose: Not Given Documented by: [id number] Famotidine (Pepcid) 20 mg PO QAM [facility] Stop: 04/23/19 08:59 Last Admin: 03/24/19 08:01 Dose: 20 mg Documented by: [id number] Sodium Chloride (Nss 1000ml) 1,000 mls @ 75 mls/hr IV .[id number] [facility] Stop: 04/22/19 17:28 Last Admin: 03/24/19 08:07 Dose: 75 mls/hr Documented by: [id number] Infusion: 03/24/19 07:28 Dose: 75 mls/hr Documented by: [id number] Admin: 03/23/19 18:08 Dose: 75 mls/hr Documented by: [id number] Levetiracetam 750 mg/ Dextrose 107.5 mls @ 440 mls/hr IV Q12H [facility] Stop: 04/22/19 20:59 Last Infusion: 03/24/19 08:51 Dose: 0 mls/hr Documented by: [id number] Admin: 03/24/19 08:00 Dose: 440 mls/hr Documented by: [id number] Infusion: 03/24/19 00:06 Dose: 0 mls/hr Documented by: [id number] Admin: 03/23/19 23:51 Dose: 440 mls/hr Documented by: [id number] Levothyroxine Sodium (Synthroid) 88 mcg PO DAILYBB [facility] Stop: 04/23/19 06:29 Last Admin: 03/24/19 06:33 Dose: 88 mcg Documented by: [id number] Pravastatin Sodium (Pravachol) 20 mg PO QAM [facility] Stop: 04/23/19 08:59 Last Admin: 03/24/19 08:01 Dose: 20 mg Documented by: [id number] Temozolomide (Temodar) 200 mg PO HS [facility] Stop: 04/22/19 20:59 Last Admin: 03/23/19 20:20 Dose: Not Given Documented by: [id number] Discontinued Medications Sodium Chloride (Nss 1000ml) 500 mls @ 999 mls/hr IV .Q31M [facility] Stop: 03/23/19 14:37 Last Infusion: 03/23/19 14:44 Dose: 0 mls/hr Documented by: [id number] Admin: 03/23/19 14:13 Dose: 999 mls/hr Documented by: [id number] Levetiracetam (Keppra) 750 mg PO Q12H [facility] Stop: 04/22/19 19:29 Last Admin: 03/23/19 20:20 Dose: Not Given Documented by: [id number] Description This is a 21 electrode EEG with a single channel dedicated to limited EKG. The electrodes were placed in accordance with the International 10-20 system. The predominant background consists of a mix of 6 Hz theta and 10 Hz alpha frequencies. There is a normal anterior to posterior organization. Photic stimulation is unremarkable. Hyperventilation is not performed. There is fairly continuous 2.5 to 3 Hz left frontotemporal slowing throughout the study. The patient did not enter sleep. No epileptiform abnormalities observed. Interpretation Abnormal awake EEG revealing findings consistent with both a generalized encephalopathy as well as superimposed left frontotemporal slowing. Clinical Correlation These EEG findings are consistent with this patient's history of left frontotemporal glioblastoma resection and suggestive of focal/structural neuronal dysfunction. However, there are no findings suggestive of seizure activity. [facility] EEG Procedure Codes Indication for Procedure (1) Partial seizures with aphasia: (2) Change in mental status: (3) Glioblastoma: Neurology Neurology: EEG include record awake & drowsy
--- NOTE | 2019-03-24 16:48 | Palliative Care Consultation ---
Date of Consultation March 24, 2019 Assessment & Plan (1) Goals of care, counseling/discussion: -69 year old patient with PMH glioblastoma s/p resection, htn, HLD, OCD, and others presented to the hospital from [facility] with altered mental status. Patient has baseline significant aphasia, but reportedly has had altered mental status and increased somnolence recently. CT head on admission showed possible residual tumor. Has not had MRI of the brain since January. Neurology consulted and recommends obtaining MRI now, and if there is residual tumor that may require further surgical intervention, will need transfer to tertiary care center. has not had MRI ordered yet. Neuro also recommended treating prophylactically for seizures, as patient does have partial seizures. They also recommend Decadron. Per [facility], patient is still physically strong and able, has been found going into the independent living side of the facility and moving furniture, has eloped several times and is a safety concern. They are uncertain if they are able to take her back. seaport planning manager spoke with patient's POA/brother, Jason Granados, and his , Joy, about discharge options. They indicated that even if there is recurrence of tumor, they aren't sure that they'd want to pursue aggressive treatment since patient's quality of life is severely compromised. Palliative care consult was suggested and family agrees. -Met with patient in room 252. she is awake, pleasant. Unfortunately, patient is unable to articulate sensible answers. Her speech is clear, but she is only able to state random thoughts such as, "The blue dishes," and "you're very pretty." She was also not able to write on paper. She was able to say that her brother's name is Jason. -Called Jason, no answer. -Spoke with Jason's , Joy. She states that they are interested in hearing about palliative/hospice options and discussing goals of care. She and Jason are able to be at hospital tomorrow morning tentatively at 0845 to meet with palliative care team. I will let my partner know. If plans need to change, she will call our office. -Agree with starting Decadron as neurology mentioned. Patient does not appear to have pain or discomfort thankfully. (2) Change in mental status: Altered mental status type: unspecified Qualified Code(s): R41.82 - Altered mental status, unspecified (3) Glioblastoma: (4) Partial seizures with aphasia: (5) Aphasia: History of Present Illness Reason for Consultation: Goals of care Requesting Physician: Dr. Jones Attending Physician: Addison Jones History of Present Illness This 69 year old patient with PMH glioblastoma s/p resection, htn, HLD, OCD, and others presented to the hospital from [facility] with altered mental status. Patient has baseline significant aphasia, but reportedly has had altered mental status and increased somnolence recently. CT head on admission showed possible residual tumor. Has not had MRI of the brain since January. Neurology consulted and recommends obtaining MRI now, and if there is residual tumor that may require further surgical intervention, will need transfer to tertiary care center. has not had MRI ordered yet. Neuro also recommended treating prophylactically for seizures, as patient does have partial seizures. They also recommend Decadron. Per [facility], patient is still physically strong and able, has been found going into the independent living side of the facility and moving furniture, has eloped several times and is a safety concern. They are uncertain if they are able to take her back. seaport planning manager spoke with patient's POA/brother, Jason Granados, and his , Joy, about discharge options. They indicated that even if there is recurrence of tumor, they aren't sure that they'd want to pursue aggressive treatment since patient's quality of life is severely compromised. Palliative care consult was suggested and family agrees. Thank you kindly for this consult. Palliative care team will follow as needed. Allergies Allergy/AdvReac Type Severity Reaction Status Date / Time Bactrim Allergy Unknown RASH Verified 09/03/17 19:13 orange Allergy Unknown Hives Verified 03/24/19 11:31 sulfamethoxazole Allergy Unknown RASH Verified 03/23/19 13:41 trimethoprim Allergy Unknown RASH Verified 03/23/19 13:41 Home Medications Home Medications Medication Instructions Recorded Confirmed Type levothyroxine 88 mcg PO QAM 10/27/18 03/23/19 History pravastatin 20 mg PO QAM 10/27/18 03/23/19 History atenolol 25 mg tablet 25 mg PO QAM 11/13/18 03/23/19 History famotidine 20 mg tablet 20 mg PO QAM 11/13/18 03/23/19 History calcium carbonate 600 mg(1,500 1 tab PO QAM tab 03/03/19 03/23/19 History mg)-vitamin D3 800 unit chewable tablet clonazepam 0.5 mg tablet 0.25 mg PO HS tab 03/03/19 03/23/19 History levetiracetam 250 mg tablet 750 mg PO Q12H tab 03/03/19 03/23/19 History docusate sodium [Colace] 100 mg PO HS 03/23/19 03/23/19 History ondansetron HCl 8 mg PO HS 03/23/19 03/23/19 History temozolomide [Temodar] 200 mg PO HS 03/23/19 03/23/19 History Patient History Medical History OCD (obsessive compulsive disorder) (Chronic) Hypertension (Chronic) Hyperlipidemia (Chronic) Glioblastoma (Acute) Diagnosed 10/28/18 - WHO Grade IV Hypothyroidism (Chronic) History of basal cell cancer (Resolved) 2009 - Removed from right lower eyelid area Surgical History History of mandibular surgery (Acute) 1981 History of craniotomy (Resolved) 10/28/[place] @ [facility] [place] Family History Grandfather (Paternal) , Passed in 50s of unknown [place] (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 Mother , Passed age 69 of [place] No problems noted. Father , Passed age 84 of poor circulation No problems noted. Brother No problems noted. Brother , Passed as an infant No problems noted. Sister , Passed as an infant No problems noted. 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 Beliefs That Will Affect Care: None marital status: Single Current Living Situation: Personal Care Facility Current Living Situation Comment: [facility] current occupational status: retired current occupation: Retired from [employer] Feels Safe at Home: Yes Safety Concerns: Feels Safe At This Time Smoking Status: Never smoker Hx Alcohol Use: No Hx Substance Use: No Childhood Exposure to Second-Hand Smoke: Yes during the past year weight has: remained stable Dental Care, Regularly: Yes Review of Systems Review of Systems: Unobtainable due to cognitive status Physical Exam Constitutional: well developed and well nourished; no acute distress Eyes: PERRL ENMT: external ear and nose normal, oropharynx normal Neck: normal visual inspection Respiratory: normal respiratory effort, lungs clear to auscultation Cardiovascular: RRR, no murmur, no edema Gastrointestinal (Abdomen): normal bowel sounds, soft, nontender, no hepatosplenomegaly Neurologic: moves all extremities and awake Speech / Cognition: + expressive aphasia and + receptive aphasia Psychiatric: Orientation: alert and oriented to person Results & Data Vital Signs (Past 12 Hours) Vital Signs Temp Pulse Resp BP Pulse Ox 03/24/19 16:07 36.6 C 64 18 155/77 H 97 03/24/19 11:00 36.3 C L 60 20 145/69 H 98 03/24/19 07:30 36.5 C 51 L 18 168/90 H 98 Time Spent Midlevel 50 minutes with >50% of the time spent at bedside with patient and family discussing condition and GOC.
[2019-03-24] MEDS: ENOXAPARIN INJ 40 MG/0.4 ML SYR SQ SCH (17:48)
[2019-03-24] MEDS: TEMOZOLOMIDE 100 MG CAPSULE PO SCH (21:14)
[2019-03-24] MEDS: DOCUSATE SODIUM 100 MG CAP PO SCH (21:14)
[2019-03-24] MEDS ORDERED: GADOBUTROL 65ML VIAL IV PRN (21:52)
--- NOTE | 2019-03-24 22:17 | Magnetic Resonance Report ---
MRI OF THE BRAIN WITHOUT AND WITH IV CONTRAST CLINICAL HISTORY: Grade 4 glioblastoma. Worsening confusion. Hearing loss. Altered mental status. COMPARISON STUDY: Head CT dated 03/23/2019, MRI the brain dated 01/27/2019 TECHNIQUE: MRI of the brain was performed from the vertex to the skull base utilizing various T1 and T2 weighted sequences. Following the IV administration of 5 mL of Gadavist contrast, additional enhan krys images were obtained. FINDINGS: Sagittal T1, axial diffusion, proton density and T2 weighted axial, coronal FLAIR, and pre and post a xial T1-weighted images were acquired. These were supplemented with post gadolinium coronal T1 weight ed images. There are postsurgical changes of a left temporal craniotomy. There is a fluid collection subjacent t o the craniotomy site with surrounding white matter edema. Postcontrast images demonstrate increasing thick-walled enhancement surrounding the resection cavity as well as nodular enhancement within the left temporal lobe inferior to the resection cavity measuring 27 x 13 mm. The findings are concerning for progressive recurrent neoplasm. Axial diffusion-weighted images reveal no evidence of acute or subacute infarction. There is no evidence of ventricular dilatation. Proton density T2-weighted and FLAIR images reveal scattered foci of increased T2 signal within the w spring matter, likely on a small vessel basis, addition to the above-mentioned left temporal lobe peril esional edema.. There are no abnormal flow voids. There are bilateral mastoid effusions left greater than right. IMPRESSION: 1. Mildly limited study from a technical standpoint secondary to significant patient motion 2. No evidence of acute or subacute infarction 3. Postsurgical changes of a left temporal craniotomy and left temporal lobe mass resection. There is increasing thick walled peripheral enhancement along the resection cavity and within the adjacent br ain parenchyma. The findings are concerning for recurrent neoplasm 4. Bilateral mastoid effusions left greater than right Electronically signed by: Alec Dee M.D. 03/24/2019 10:15 PM
--- NOTE | 2019-03-24 22:24 | Hospitalist Progress Note ---
Date of Service March 24, 2019 Assessment & Plan (1) Change in mental status: Patient with reported increased somnolence, episodes of confusion and decreased responsiveness. Work-up thus far with no overt evidence of infectionno leukocytosis, negative UA, chest x-ray without evidence of pneumonia. TSH within normal range. LFTs unremarkable. CT head unchanged from prior. Keppra level pending. -Appears that this is due to glioblastoma. Consulted Neuro, recommended MRI of brain. Will discuss with family if they are willing to continue to treat, or if they want to go the palliative care route. (2) Glioblastoma: Patient follows with oncology at [place]. -Continue Temodar 200 mg p.o. nightly -Routine follow-up with oncology -Continue Keppra (3) Hypothyroidism: Chronic. Stable. TSH within normal range -Continue Synthroid 88 mcg p.o. daily (4) Partial seizures with aphasia: No witnessed seizure activity -Continue Keppra 750 mg p.o. twice daily -Follow level, labs a send out -Neurology consult as above. Assistance appreciated (5) Hypertension: Blood pressure elevated at present -Continue home medication, atenolol 25 mg p.o. every morning -Consider adding additional agent if blood pressure remains elevated (6) Hyperlipidemia: Chronic. -Continue pravastatin [id number], monitor electrolytes and replete as needed, regular diet as tolerated with aspiration precautions ProphylaxisLovenox, continue home Pepcid CodeDNR/DNI per discussion with brother Family Sang Granados [phone] Spent 35 minutes in management of patient. This included discussion with specialists Subjective Patient has expressive aphasia, and is unable to provide significant history. Review of Systems Review of Systems: Unobtainable due to mental health condition Physical Exam Physical Exam: General: patient somnolent, arousable to verbal and tactile stimuli. Answers some questions and follows some commands. No acute distress. Skin: warm, dry, intact, no rashes or lesions HEENT: Status post craniotomy, PERRL, anicteric sclera, conjunctiva without inj ection, external ear normal to inspection and nontender, nares patent, moist mucus membranes, dentition intact, no oropharyngeal lesions, neck supple, trachea midline, no LAD, no thyromegaly, no JVD Heart: +S1/S2, regular, tachycardic, no m/r/g Lungs: Anterior exam with equal air entry bilaterally, no rales/rhonchi/wheezes Abd: +BS, soft, NT/ND, no masses/organomegaly/ascites Ext: warm, 2+ pulses in UE/LE bilaterally, no clubbing/cyanosis or edema Neuro: Difficult to obtain complete neuro exam, patient moving all extremities, not consistently following command Results & Data Vital Signs (Past 12 Hours) Vital Signs Temp Pulse Resp BP Pulse Ox 03/24/19 18:36 37.0 C 75 18 130/77 96 03/24/19 16:07 36.6 C 64 18 155/77 H 97 03/24/19 11:00 36.3 C L 60 20 145/69 H 98 PG Care Time/CCT Total # of Minutes Spent Total Time Spent with Patient: Total time spent is greater than 50% in coordination of care (as documented) at patient's floor/unit and/or counseling patient: (1) Hyperlipidemia Hyperlipidemia type: unspecified Qualified Code(s): E78.5 - Hyperlipidemia, unspecified (2) Hypothyroidism Hypothyroidism type: unspecified Qualified Code(s): E03.9 - Hypothyroidism, unspecified (3) Change in mental status Altered mental status type: unspecified Qualified Code(s): R41.82 - Altered mental status, unspecified (4) Hypertension Hypertension type: essential hypertension Qualified Code(s): I10 - Essential (primary) hypertension
[2019-03-25] MEDS: LEVOTHYROXINE SODIUM 88 MCG TABLET PO SCH (05:44)
[2019-03-25] MEDS: ATENOLOL 25 MG TABLET PO SCH (07:47)
[2019-03-25] MEDS: FAMOTIDINE 20 MG TAB PO SCH (07:47)
[2019-03-25] MEDS: PRAVASTATIN SOD 20 MG TAB PO SCH (07:48)
--- NOTE | 2019-03-25 09:43 | Palliative Care Progress Note ---
Date of Service March 25, 2019 Assessment & Plan (1) Goals of care, counseling/discussion: -69 year old patient with PMH glioblastoma s/p resection, htn, HLD, OCD, and others presented to the hospital from [facility] with altered mental status. Patient has baseline significant aphasia, but reportedly has had altered mental status and increased somnolence recently. CT head on admission showed possible residual tumor. Has not had MRI of the brain since January. Neurology consulted and recommends obtaining MRI now, and if there is residual tumor that may require further surgical intervention, will need transfer to tertiary care center. has not had MRI ordered yet. Neuro also recommended treating prophylactically for seizures, as patient does have partial seizures. They also recommend Decadron. Per [facility], patient is still physically strong and able, has been found going into the independent living side of the facility and moving furniture, has eloped several times and is a safety concern. They are uncertain if they are able to take her back. steel manager spoke with patient's POA/brother, Jason Granados, and his , Joy, about discharge options. They indicated that even if there is recurrence of tumor, they aren't sure that they'd want to pursue aggressive treatment since patient's quality of life is severely compromised. Palliative care consult was suggested and family agrees. -Met with patient in room 252. She was resting, but woke easily to voice. Patient does have clear speech and at times, seemed frustrated with herself that she couldn't get the words out right. She said "I will drive the car and get that done now". She did say that her mother was a nurse and in 1968 at 67 years old, which I clarified with family that her mother was a nurse but she in 1993. -Patient did have her menu sitting in front of her and items were circled and she stated that she circled them herself. patient did attempt to get OOB unassisted, strength 4/5 B/L UE and LE. -Patient appears comfortable and pleasant. -I met with patients brother Jason (POA) and sister in law, Joy in a separate meeting area to discuss goals of care. -Both are realistic in that they understand she is terminal and feel she may know what is going on but cannot express herself. -We discussed goals of care and they do not wish to pursue any additional aggressive diagnostic testing. They do not want to escalate care, but are ok with continuing current treatment plan. -We confirmed that she is a DNR/DNI and did complete a POLST form with her brother Jason who is also POA signing it indicating DNR/DNI, comfort measures only, trial abx, and no artificial nutrition/hydration. -In discussing discharge planning, we talked about a variety of options: 1. Most appealing option: Return to [facility] with Hospice services and family/friends providing additional around the clock care care as needed 2. Pt cannot return to Joy and Jason's home because they have a lot of stairs and 4 cats which she is allergic to 3. patient can't return to her home because it is a hoarding situation and becomes overwhelmed being there 4. Go to a SNF if qualified through PT/OT, which I ordered for eval/treat for a short timeframe and transition to Hospice (Family does NOT want [facility] due to pt wishes, but would be willing for a short timeframe) 5. Family would like to entertain renting a furnished apartment at [facility] or [facility] and providing 24/7 care. Expressed concerns about the liability of this and elopement concerns, they understand but would like to investigate this option. Expressed I am not certain the apartment complex would accept their application. Regardless, this avenue would take an unknown amount of time to arrange with application approval, equipment delivery, etc. -The patient may qualify for skilled; however, her ability to retain instruction will not be possible due to her disease progression. -Will continue to assist family with discharge planning and goals transition. -PPS: 30% (2) Change in mental status: (3) Glioblastoma: (4) Partial seizures with aphasia: (5) Aphasia: Review of Systems Review of Systems: Unobtainable due to cognitive status Physical Exam Constitutional: well developed, well nourished and comfortable; no acute distress Eyes: PERRL, conjunctivae normal, anicteric sclerae ENMT: external ear and nose normal, oropharynx normal Neck: trachea midline, no thyromegaly Respiratory: normal respiratory effort, lungs clear to auscultation Cardiovascular: Rate/Rhythm: regular rate and regular rhythm Heart Sounds: normal S1 and normal S2 Extremities: normal capillary refill; no edema Gastrointestinal (Abdomen): normal bowel sounds, soft, nontender, no hepatosplenomegaly Skin: no rashes, warm and dry right side of head, hair was shaven Psychiatric: Orientation: alert, oriented to person and cooperative Eye Contact: + fair eye contact Affect: euthymic affect Insight: + impaired insight Judgement: + impaired judgement Lymphatic: no cervical or axillary lymphadenopathy Results & Data Vital Signs (Past 12 Hours) Vital Signs Temp Pulse Resp BP BP Pulse Ox 03/25/19 08:08 36.5 C 95 H 18 165/97 H 96 03/25/19 03:40 36.9 C 68 18 163/79 H 96 03/24/19 22:49 36.8 C 68 18 164/72 H 97 PG Care Time/CCT Total # of Minutes Spent Total Time Spent with Patient: Total time spent is greater than 50% in coordination of care (as documented) at patient's floor/unit and/or counseling patient: 90 Prolonged Care Time Prolonged Care Time: Yes Total Prolonged Care Time: 90 90 Time Spent Midlevel Total time spent 90 minutes with > 50% of that time spent assessing patient, discussing goals of care, completing a POLST form and discussing case with IDT. (1) Change in mental status Altered mental status type: unspecified Qualified Code(s): R41.82 - Altered mental status, unspecified
[2019-03-25] MEDS: SODIUM CHLORIDE 0.9% 1000ML 1,000 ML IV SCH (11:07)
--- NOTE | 2019-03-25 11:54 | Neurology Progress Note ---
Date of Service March 25, 2019 Assessment & Plan (1) Glioblastoma: Left frontotemporal glioblastoma, history of resection, but with evidence of recurrent neoplasm. Presenting with fairly persistent receptive greater than expressive aphasia. No clear evidence for recent seizure activity although I would continue with Keppra 1000 mg twice daily. I would recommend a trial of dexamethasone 4 mg daily for 5 days followed by 2 mg daily thereafter. Further care of her neoplasm will need to be coordinated with her specialist at [facility]. Palliative care has been consulted which is appropriate. Subjective Follow-up for aphasia The patient is a 69-year-old female with a history of left frontotemporal lobe glioblastoma resection with evidence of tumor recurrence on recent MRI. She presents with a primarily receptive aphasia that has not significantly changed since yesterday. I had increased her dosage of Keppra prophylactically to 1000 mg twice daily. She has not had any observed seizures or convulsive activity, however. The patient's severe receptive aphasia makes her an extremely poor historian. She is able to follow very simple midline commands but otherwise is very confused. He denies any headache or pain at this time. Review of Systems Review of Systems: As above, review of systems cannot be obtained due to her severe aphasia although she did deny the presence of headache or pain. Physical Exam Physical Exam: The patient is alert and able to state her name. Orientation cannot be otherwise assessed. She is unable to name objects and exhibits significant difficulty with reading and repetition as well. Language comprehension is also severely impaired. She will follow simple midline commands such as close your eyes and stick out your tongue but otherwise is very confused. She can mimic simple gestures, however. Visual connelly full to threat. Pupils equal round reactive to light and accommodation. Eye movements normal. No ptosis or nystagmus or gaze preference. There is no facial droop or weakness. Tongue and palate midline. Patient moves all 4 extremities fairly well. There is no obvious signs of a hemiplegia, monoplegia, or paraparesis. Results & Data Vital Signs (Past 12 Hours) Vital Signs Temp Pulse Resp BP BP Pulse Ox 03/25/19 08:08 36.5 C 95 H 18 165/97 H 96 03/25/19 03:40 36.9 C 68 18 163/79 H 96 Diagnostic Findings Brain MRI completed yesterday reveals no evidence of acute or subacute stroke. There are postsurgical changes consistent with her history of left temporal craniotomy and left temporal lobe mass resection. There is some enhancement along the resection cavity with findings concerning for recurrent neoplasm. I reviewed the images as well as the radiologist interpretation of this test.
[2019-03-25] MEDS: ENOXAPARIN INJ 40 MG/0.4 ML SYR SQ SCH (18:25)
[2019-03-25] MEDS: DOCUSATE SODIUM 100 MG CAP PO SCH (20:45)
[2019-03-25] MEDS: TEMOZOLOMIDE 100 MG CAPSULE PO SCH (20:46)
--- NOTE | 2019-03-25 22:45 | Hospitalist Progress Note ---
Date of Service March 25, 2019 Assessment & Plan (1) Change in mental status: Patient with reported increased somnolence, episodes of confusion and decreased responsiveness. Work-up thus far with no overt evidence of infectionno leukocytosis, negative UA, chest x-ray without evidence of pneumonia. TSH within normal range. LFTs unremarkable. CT head unchanged from prior. Keppra level pending. - Appears that this is due to glioblastoma. - This was obtained, however, family is pursuing the comfort route and is foregoing and further treatment. -D/W palliative care and , looking for placement at the [facility]. Informed Neurology that family is not interested in further treatment (2) Glioblastoma: Patient follows with oncology at [place]. -Continue Temodar 200 mg p.o. nightly -Routine follow-up with oncology -Continue Keppra (3) Hypothyroidism: Chronic. Stable. TSH within normal range -Continue Synthroid 88 mcg p.o. daily (4) Partial seizures with aphasia: No witnessed seizure activity -Continue Keppra 750 mg p.o. twice daily -Follow level, labs a send out -Neurology consult as above. Assistance appreciated (5) Hypertension: Blood pressure elevated at present -Continue home medication, atenolol 25 mg p.o. every morning -Consider adding additional agent if blood pressure remains elevated (6) Hyperlipidemia: Chronic. -Continue pravastatin [id number], monitor electrolytes and replete as needed, regular diet as tolerated with aspiration precautions ProphylaxisLovenox, continue home Pepcid CodeDNR/DNI per discussion with brother Family Sang Granados [phone] Spent 35 minutes in management of patient. This included discussion with specialists Subjective 69 yo female has expressive aphasia. unable to provide history. Had discussion with palliative care team, family is agreeable to hospice. Getting this setup now. Review of Systems Review of Systems: Unobtainable due to mental health condition Physical Exam Physical Exam: General: patient somnolent, arousable to verbal and tactile stimuli. Answers some questions and follows some commands. No acute distress. Skin: warm, dry, intact, no rashes or lesions HEENT: Status post craniotomy, PERRL, anicteric sclera, conjunctiva without injection, external ear normal to inspection and nontender, nares patent, moist mucus membranes, dentition intact, no oropharyngeal lesions, neck supple, trachea midline, no LAD, no thyromegaly, no JVD Heart: +S1/S2, regular, tachycardic, no m/r/g Lungs: Anterior exam with equal air entry bilaterally, no rales/rhonchi/wheezes Abd: +BS, soft, NT/ND, no masses/organomegaly/ascites Ext: warm, 2+ pulses in UE/LE bilaterally, no clubbing/cyanosis or edema Neuro: Difficult to obtain complete neuro exam, patient moving all extremities, not consistently following command Results & Data Vital Signs (Past 12 Hours) Vital Signs Temp Pulse Resp BP Pulse Ox 03/25/19 22:33 36.9 C 67 20 127/71 95 03/25/19 19:00 36.7 C 78 18 151/76 H 95 03/25/19 16:05 36.8 C 63 18 140/70 98 03/25/19 11:46 36.4 C L 69 18 147/55 H 91 PG Care Time/CCT Total # of Minutes Spent Total Time Spent with Patient: Total time spent is greater than 50% in coordination of care (as documented) at patient's floor/unit and/or counseling patient: (1) Hyperlipidemia Hyperlipidemia type: unspecified Qualified Code(s): E78.5 - Hyperlipidemia, unspecified (2) Hypothyroidism Hypothyroidism type: unspecified Qualified Code(s): E03.9 - Hypothyroidism, unspecified (3) Change in mental status Altered mental status type: unspecified Qualified Code(s): R41.82 - Altered mental status, unspecified (4) Hypertension Hypertension type: essential hypertension Qualified Code(s): I10 - Essential (primary) hypertension
[2019-03-26] MEDS: SODIUM CHLORIDE 0.9% 1000ML 1,000 ML IV SCH ×2 (00:02→13:03)
[2019-03-26] MEDS: LEVOTHYROXINE SODIUM 88 MCG TABLET PO SCH (06:36)
[2019-03-26] MEDS: PRAVASTATIN SOD 20 MG TAB PO SCH (07:30)
[2019-03-26] MEDS: ATENOLOL 25 MG TABLET PO SCH (07:31)
[2019-03-26] MEDS: FAMOTIDINE 20 MG TAB PO SCH (07:31)
[2019-03-26 07:53] LABS: Creatinine Clr Calc Pharmacy 66.9 ml/min; Est GFR (African American) 109.6; Est GFR (Non-African American) 94.6
--- NOTE | 2019-03-26 13:40 | Palliative Care Progress Note ---
Date of Service March 26, 2019 Assessment & Plan (1) Goals of care, counseling/discussion: -Stopped in to see patient early this morning. She was sleeping initially when I entered room. -Remains pleasant but with severe aphasia. -Palliative care held family meeting yesterday to discuss goals. POLST form was completed. -Goal is for comfort/hospice. Tentatively plan is for patient to return to the [facility] with [facility] for a "trial run." -Palliative care will follow peripherally and be available for any further needs. Thank you. (2) Change in mental status: (3) Glioblastoma: (4) Partial seizures with aphasia: (5) Aphasia: Physical Exam Constitutional: well developed and well nourished; no acute distress Eyes: PERRL ENMT: external ear and nose normal, oropharynx normal Neck: normal visual inspection Respiratory: normal respiratory effort, lungs clear to auscultation Cardiovascular: RRR, no murmur, no edema Gastrointestinal (Abdomen): normal bowel sounds, soft, nontender, no hepatosplenomegaly Neurologic: moves all extremities and awake Speech / Cognition: + expressive aphasia and + receptive aphasia Psychiatric: Orientation: alert and oriented to person Results & Data Vital Signs (Past 12 Hours) Vital Signs Temp Pulse Resp BP BP Pulse Ox 03/26/19 11:40 36.3 C L 64 19 140/74 99 03/26/19 07:37 36.5 C 70 19 178/79 H 97 Supervising Physician Co-Signing Physician Notes Chart reviewed, patient seen and examined-collaborated with PCP at the [facility]. Friend of the patient's from [facility] was visiting at the end of my visit-reports that she had acute changes that started on Saturday. PE: Alert, confused, repetitive speech with expressive aphasia HEENT: EOMI, hearing within normal limits Respiratory: Clear bilaterally CV: Regular rate, no edema Abdomen: Soft, nontender Extremities: Full range of motion, ambulates without assist Neuro: Increased confusion, new expressive aphasia Agree with above note, assessment and plan as per FREDDY Calix-will continue to follow and assist family with medical decision making Time Spent Midlevel 15 minutes with >50% of time the spent at bedside with patient and IDT discussing plan of care. Attending Spent 25 minutes in addition to the 15 minutes spent by FREDDY Calix for a total of 40 minutes with greater than 50% of the time spent at bedside assessing patient's current status. (1) Change in mental status Altered mental status type: unspecified Qualified Code(s): R41.82 - Altered mental status, unspecified
[2019-03-26] MEDS: ENOXAPARIN INJ 40 MG/0.4 ML SYR SQ SCH (19:01)
[2019-03-26] MEDS: TEMOZOLOMIDE 100 MG CAPSULE PO SCH (20:28)
[2019-03-26] MEDS: DOCUSATE SODIUM 100 MG CAP PO SCH (20:28)
--- NOTE | 2019-03-26 22:27 | Hospitalist Progress Note ---
Date of Service March 26, 2019 Assessment & Plan (1) Change in mental status: Patient with reported increased somnolence, episodes of confusion and decreased responsiveness. Work-up thus far with no overt evidence of infectionno leukocytosis, negative UA, chest x-ray without evidence of pneumonia. TSH within normal range. LFTs unremarkable. CT head unchanged from prior. Keppra level pending. -Left frontotemporal glioblastoma, history of resection, but with evidence of recurrent neoplasm - This was obtained, however, family is pursuing the comfort route and is foregoing further treatment. -D/W palliative care and CM, looking for placement at the [facility]. Informed Neurology that family is not interested in further treatment. (2) Glioblastoma: Patient follows with oncology at [facility]. -Continue Temodar 200 mg p.o. nightly -Routine follow-up with oncology -Continue Keppra. (3) Hypothyroidism: Chronic. Stable. TSH within normal range -Continue Synthroid 88 mcg p.o. daily (4) Partial seizures with aphasia: No witnessed seizure activity -Continue Keppra 750 mg p.o. twice daily -Follow level, labs a send out -Neurology consult as above. Assistance appreciated (5) Hypertension: Blood pressure elevated at present -Continue home medication, atenolol 25 mg p.o. every morning -Consider adding additional agent if blood pressure remains elevated (6) Hyperlipidemia: Chronic. -Continue pravastatin [id number], monitor electrolytes and replete as needed, regular diet as tolerated with aspiration precautions ProphylaxisLovenox, continue home Pepcid CodeDNR/DNI per discussion with brother Family Sang Granados [phone] Awaiting placement. Subjective Patient continues having expressive aphasia which makes her a poor historian. D/W nurse, she has had no seizures while being here. Review of Systems Review of Systems: All systems reviewed & are unremarkable except as noted in HPI & below Physical Exam Physical Exam: General: patient somnolent, arousable to verbal and tactile stimuli. Answers some questions and follows some commands. No acute distress. Skin: warm, dry, intact, no rashes or lesions HEENT: Status post craniotomy, PERRL, anicteric sclera, conjunctiva without injection, external ear normal to inspection and nontender, nares patent, moist mucus membranes, dentition intact, no oropharyngeal lesions, neck supple, trachea midline, no LAD, no thyromegaly, no JVD Heart: +S1/S2, regular, tachycardic, no m/r/g Lungs: Anterior exam with equal air entry bilaterally, no rales/rhonchi/wheezes Abd: +BS, soft, NT/ND, no masses/organomegaly/ascites Ext: warm, 2+ pulses in UE/LE bilaterally, no clubbing/cyanosis or edema Neuro: Difficult to obtain complete neuro exam, patient moving all extremities, not consistently following command Results & Data Vital Signs (Past 12 Hours) Vital Signs Temp Pulse Resp BP BP Pulse Ox 03/26/19 19:50 36.7 C 65 18 164/63 H 94 03/26/19 15:33 36.5 C 81 19 160/76 H 96 03/26/19 11:40 36.3 C L 64 19 140/74 99 PG Care Time/CCT Total # of Minutes Spent Total Time Spent with Patient: Total time spent is greater than 50% in coordination of care (as documented) at patient's floor/unit and/or counseling patient: (1) Hyperlipidemia Hyperlipidemia type: unspecified Qualified Code(s): E78.5 - Hyperlipidemia, unspecified (2) Hypothyroidism Hypothyroidism type: unspecified Qualified Code(s): E03.9 - Hypothyroidism, unspecified (3) Change in mental status Altered mental status type: unspecified Qualified Code(s): R41.82 - Altered mental status, unspecified (4) Hypertension Hypertension type: essential hypertension Qualified Code(s): I10 - Essential (primary) hypertension
[2019-03-27] MEDS: LEVOTHYROXINE SODIUM 88 MCG TABLET PO SCH (06:01)
[2019-03-27] MEDS: PRAVASTATIN SOD 20 MG TAB PO SCH (08:58)
[2019-03-27] MEDS: ATENOLOL 25 MG TABLET PO SCH (08:58)
[2019-03-27] MEDS: FAMOTIDINE 20 MG TAB PO SCH (08:59)
--- NOTE | 2019-03-27 13:43 | Palliative Care Progress Note ---
Date of Service March 27, 2019 Assessment & Plan (1) Goals of care, counseling/discussion: -Patient remains aphasic. -Spoke with patient's [id number], Joy, on phone. She was able to talk with [facility] and [employer] Mackenvironmental project manager, today. -Plan is for patient to go to [facility] with [facility] today. Answered Joy's questions to her satisfaction. -Palliative will sign off. Please contact us with any further palliative care needs. (2) Change in mental status: (3) Glioblastoma: (4) Partial seizures with aphasia: (5) Aphasia: Subjective No new issues. patient appears comfortable. Aphasia continues Review of Systems Review of Systems: Unobtainable due to cognitive status Physical Exam Constitutional: well developed and well nourished; no acute distress Eyes: PERRL ENMT: external ear and nose normal, oropharynx normal Neck: normal visual inspection Respiratory: normal respiratory effort, lungs clear to auscultation Cardiovascular: RRR, no murmur, no edema Gastrointestinal (Abdomen): normal bowel sounds, soft, nontender, no hepatosplenomegaly Neurologic: moves all extremities and awake Speech / Cognition: + expressive aphasia and + receptive aphasia Psychiatric: Orientation: alert and oriented to person Results & Data Vital Signs (Past 12 Hours) Vital Signs Temp Pulse Resp BP Pulse Ox 03/27/19 13:32 36.6 C 75 18 150/78 H 98 03/27/19 11:16 36.6 C 75 18 150/78 H 98 03/27/19 07:25 36.5 C 72 18 167/77 H 98 03/27/19 04:18 36.7 C 71 16 139/78 96 Time Spent Midlevel 35 minutes with >50% of the time spent at bedside with patient and on phone family discussing condition and GOC. (1) Change in mental status Altered mental status type: unspecified Qualified Code(s): R41.82 - Altered mental status, unspecified
--- NOTE | 2019-04-05 22:40 | Discharge Summary ---
Date of Service March 27, 2019 Admission HPI Per Admitting Provider Chanda Granados is a 69-year-old female with history of glioblastoma, hypertension, hyperlipidemia presenting with increased somnolence. The patient resides at the [facility]. She has family that visits her regularly, brother and [id number]. Per discussion with them, her baseline functional status is conversive and appropriate at most times with occasional episodes of confusion. Family remarks that they noticed that her mental status declines significantly in the evenings and she becomes quite tired and less responsive. They state that she is often "unable to finish of thought" when she is tired. They state that she takes her medications in the evening and often drinks quite a bit of water with her medicines. She is up multiple times during the night to use the bathroom. She does not nap during the day. Staff at the [facility] comments that the patient has been quite fatigued and that it takes her more time to complete daily tasks such as eating. Patient was doing well last night. At some point during the night she broke a glass in her room and had superficial cuts on her fingers. This morning she was more fatigued and disoriented. She did not eat breakfast. She had a difficult time dressing. Symptoms prompted family to bring her to the ER. During my encounter patient is quite somnolent. She opens eyes to verbal and tactile stimuli but does not answer questions or follow commands consistently. Later in the afternoon she was more alert and sitting at the edge of the bed smiling. Principal Diagnosis change in mental status Discharge Exam General: patient somnolent, arousable to verbal and tactile stimuli. Skin: warm, dry, intact, no rashes or lesions HEENT: Status post craniotomy, PERRL, anicteric sclera, conjunctiva without injection, external ear normal to inspection and nontender, nares patent, moist mucus membranes, dentition intact, no oropharyngeal lesions, neck supple, trachea midline, no LAD, no thyromegaly, no JVD Heart: +S1/S2, regular, tachycardic, no m/r/g Lungs: Anterior exam with equal air entry bilaterally, no rales/rhonchi/wheezes Abd: +BS, soft, NT/ND, no masses/organomegaly/ascites Ext: warm, 2+ pulses in UE/LE bilaterally, no clubbing/cyanosis or edema Neuro: Difficult to obtain complete neuro exam, patient moving all extremities, not consistently following command Discharge Data Allergies Allergy/AdvReac Type Severity Reaction Status Date / Time Bactrim Allergy Unknown RASH Verified 09/03/17 19:13 orange Allergy Unknown Hives Verified 03/24/19 11:31 sulfamethoxazole Allergy Unknown RASH Verified 03/23/19 13:41 trimethoprim Allergy Unknown RASH Verified 03/23/19 13:41 Consultations 03/23/19 15:11 ED Decision to Admit Stat 03/23/19 17:29 Consult Neurology Routine 03/24/19 13:34 Consult Palliative Care Routine Ordered Studies 03/23/19 14:06 CT head/brain wo con Stat 03/24/19 17:15 MR brain wo/w con Routine Hospital Course (1) Change in mental status: Patient with reported increased somnolence, episodes of confusion and de creased responsiveness. Work-up thus far with no overt evidence of infectionno leukocytosis, negative UA, chest x-ray without evidence of pneumonia. TSH within normal range. LFTs unremarkable. CT head unchanged from prior. Keppra level pending. -Left frontotemporal glioblastoma, history of resection, but with evidence of recurrent neoplasm - This was obtained, however, family is pursuing the comfort route and is foregoing further treatment. -D/W palliative care and , looking for placement at the [facility]. Informed Neurology that family is not interested in further treatment. patient to be discharged on hospice. (2) Glioblastoma: Patient follows with oncology at [place]. -Continue Temodar 200 mg p.o. nightly -Routine follow-up with oncology -Continue Keppra. (3) Hypothyroidism: Chronic. Stable. TSH within normal range -Continue Synthroid 88 mcg p.o. daily (4) Partial seizures with aphasia: No witnessed seizure activity -Continue Keppra 750 mg p.o. twice daily -Follow level, labs a send out -Neurology consult as above. Assistance appreciated (5) Hypertension: Blood pressure elevated at present -Continue home medication, atenolol 25 mg p.o. every morning -Consider adding additional agent if blood pressure remains elevated (6) Hyperlipidemia: Chronic. -Continue pravastatin [id number], monitor electrolytes and replete as needed, regular diet as tolerated with aspiration precautions ProphylaxisLovenox, continue home Pepcid CodeDNR/DNI per discussion with brother Family Sang Granados [phone] Awaiting placement. Total Time Total Time Spent Total Time Spent (In Minutes): 32 Total Time Includes: Examination of the Patient, Discharge Planning and Medication Reconciliation Discharge Plan Discharge Items Patient Disposition: Hospice - Medical Facility Reason For Visit: SOMNLENCE, AMS Discharge Diagnosis: Glioblastoma Activity: Resume your previous activity Non-emergency contact: Primary Care Provider Call non-emergency contact if: you have any medication questions Follow-up/Referrals: [facility], [Primary Care Provider] - Diet: Regular Diet Texture: Dental soft (bite-sized) Addtl Attending Provider Instructions: Will be discharged on hospice at [place]. Dexamethasone taper: 4 mg for 5 days, then continue with 2 mg daily Pending Studies at Discharge: No Stand-Alone Forms: My [facility] Skilled Items Patient informed of condition?: No DNR: No Discharge Level of Care: Skilled Communicable Disease: No Discharge Prognosis: Stable Lines: None Urinary Catheter: No Medications and DC Order Prescriptions: New dexamethasone 2 mg tablet 2 mg PO DAILY Qty: 30 RF: 0 Continued atenolol 25 mg tablet 25 mg PO QAM RF: 0 famotidine 20 mg tablet 20 mg PO QAM RF: 0 Caltrate 600 plus D 600 mg (1,500 mg)-800 unit tablet,chewable 1 tab PO QAM RF: 0 ondansetron HCl 8 mg tablet 8 mg PO HS RF: 0 temozolomide [Temodar] 100 mg Capsule 200 mg PO HS RF: 0 docusate sodium [Colace] 100 mg Capsule 100 mg PO HS RF: 0 levothyroxine 88 mcg tablet 88 mcg PO QAM RF: 0 pravastatin 20 mg tablet 20 mg PO QAM RF: 0 Discontinued levetiracetam [Keppra] 250 mg tablet 750 mg PO Q12H RF: 0 clonazepam 0.5 mg tablet 0.25 mg PO HS RF: 0 Discharge Orders: Discharge Order (Routine); Ordered 03/27/19 Ordered By: Addison Jones Admission Data Admit Date/Time: 03/25/19 10:05 Attending Provider: Addison Jones Admit Provider: Sia Celis Primary Care Provider: [facility], Other Providers: Sia Celis ; Chi Joyce ; Megan Bourne Other Interventions: Discharge Summary Assessment (RN) Last Done: 03/27/19 13:32 DC Date/Time DO NOT enter until pt leaves facility: 03/27/19 17:10
== END 2019-03-27 17:10 | disposition hospice, inpatient (51) | DRG 55 ==
LOC: 2W 12:54 → ED 12:54 → SUATTDRO 16:00 → 2W 16:42